=== PATIENT | male | born 1970 | race African-American/Black ===

== ENCOUNTER 2018-11-10 18:13 | Emergency (ER) | payer OTHER ==
[~2018-11-10] VITALS: Ht 190.5 cm; Wt 72.6 kg
--- OUTSIDE RECORDS SUMMARY | ~2018-11-10 | XMS | Clinical Summary ---
Demographics + + + | Address | [address] [facility] | | | [place] [address] | + + + | Home Phone | | + + + | Preferred Language | Unknown | + + + | Marital Status | Single | + + + | Uatsdin Affiliation | Unknown | + + + | Race | Unknown | + + + | Ethnic Group | Unknown | + + + Author + + + | Author | [facility] | + + + | Organization | [facility] | + + + | Address | Unknown | + + + | Phone | Unavailable | + + + Support + + +---------+ + | Name | Relationship | Address | Phone | + + +---------+ + | No,Contact | ECON | Unknown | | + + +---------+ + Care Team Providers + +------+ + | Care Cap Coverer Name | Role | Phone | + [...] tablet by | 30 | 11 | 10/21 | | Activ | | sulfamethoxazole-tri | mouth daily. | tablet | | 04/10 | | e | | methoprim (BACTRIM) [...] | 12/29/2012 | | | (#1) | 8 | | | + + [...] +------+-------+ + | MEDICAID | [place] | [id number] | | | [address] | | | N | | | | [place] | | | [place] | | | | [address] | | | RN RADIOLOGY | | | | | + +--------+ [...] | Self [birth year] | Home: | [address] [place] [address] | | | al/Fam | | 1970 | [phone] | [phone] [place] | | | [place] | | | [phone] | [phone] | + +--------+ +--------+ + + | LUCILLE GREENE | Person | Self | [birth year] | Home: | [address] | | | [place] | | 1969 | [phone] | [address] [place] | | | [place] | | | [phone] | [phone] | + +--------+ +--------+ + +
--- OUTSIDE RECORDS SUMMARY | ~2018-11-10 | XMS | Clinical Summary ---
Demographics + + + | Address | [address] [facility] | | | [place] [address] | + + + | Home Phone | | + + + | Preferred Language | Unknown | + + + | Marital Status | Single | + + + | Jain Affiliation | Unknown | + + + | Race | Unknown | + + + | Ethnic Group | Unknown | + + + Author + + + | Author | [facility] | | | and [facility] | + + + | Organization | [facility] | | | and [facility] | + + + | Address | Unknown | + + + | Phone | Unavailable | + + + Care Team Providers + +------+ + | Care Kitchen Food Server Name | Role | Phone | + +------+ + | Grecia Miranda NP | PP | | + +------+ + Allergies No Known Allergies Current Medications + + +---------+---------+------+------+-------+ | Prescription | Sig. | Disp. | Refills | Star | End | Statu | | | | | | t | Date | s | | | | | | Date | | | + + +---------+---------+------+------+-------+ | | Take 1 tablet by | | | | | Activ | | emtricitab-rilpivir- | mouth Daily. Take | | | | | e | | tenofovir (COMPLERA) | with a meal. | | | | | | | 200-25-300 mg | | | | | | | + + +---------+---------+------+------+-------+ | | Take by mouth. | | | | | Activ | | Azwkyci-Wfszcud-Kiir | | | | | | e | | icit-Tenof (STRIBILD | | | | | | | | PO) | | | | | | | + + +---------+---------+------+------+-------+ | HYDROCORTISONE PO | Take by mouth. | | | | | Activ | | | | | | | | e | + + +---------+---------+------+------+-------+ | OMEPRAZOLE PO | Take 40 mg by mouth | | | | | Activ | | | Daily. | | | | | e | + + +---------+---------+------+------+-------+ | gabapentin | Take 1 capsule by | 60 | 2 | 12/0 | | Activ | | (NEURONTIN) 300 mg | mouth 2 times daily. | capsule | | 8/20 | | e | | capsuleIndications: | | | | 14 | | | | Neuropathic pain | | | | | | | + + +---------+---------+------+------+-------+ | RANITIDINE HCL PO | Take 15 mg by mouth | | | | | Activ | | | Daily. | | | | | e | + + +---------+---------+------+------+-------+ | dicyclomine | Take 20 mg by mouth. | | | | | Activ | | (BENTYL) 20 MG | | | | | | e | | tablet | | | | | | | + + +---------+---------+------+------+-------+ | QUEtiapine | Take 150 mg by mouth | | | | | Activ | | Fumarate (SEROQUEL | 3 times daily. | | | | | e | | PO) | | | | | | | + + +---------+---------+------+------+-------+ Active Problems No known active problems Family History + + +------+ + | Medical History | Relation | Name | Comments | + + +------+ + | Diabetes | Father | | | + + +------+ + | Stroke | Father | | | + + +------+ + | Diabetes | Mother | | | + + +------+ + | Cancer | Other | | throat | + + +------+ + | Diabetes | Other | | | + + +------+ + | Hypertension | Other | | | + + +------+ + + +------+--------+ + | Relation | Name | Status | Comments | + +------+--------+ + | Father | | | | + +------+--------+ + | Mother | | | | + +------+--------+ + | Other | | | | + +------+--------+ + Social History [...] | | + + +---------+ + | Yes | 2 Cans | 1.2 | | | | of beer | | | + + +---------+ + + + + | Sex Assigned at | Date Recorded | | | | + + + | Not on file | | + + + Last Filed Vital Signs + + + + | Vital Sign | Reading | Time Taken | + + + + | Blood Pressure | 109/56 | 09/04/20141502 PST | + + + + | Pulse | 91 | 09/04/20141502 PST | + + + + | Temperature | 36.4 C (97.5 F) | 11/15/2012938 PDT | + + + + | Respiratory Rate | 16 | 09/04/20141502 PST | + + + + | Oxygen Saturation | 100% | 11/15/2012938 PDT | + + + + | Inhaled Oxygen | - | - | | Concentration | | | + + + + | Weight | 75.3 kg (166 lb) | 09/04/20141502 PST | + + + + | Height | 190.5 cm (6' 3") | 09/04/20141502 PST | + + + + | Body Mass Index | 20.75 | 09/04/20141502 PST | + + + + Plan of Treatment + + + + + | Health Maintenance | Due Date | Last Done | Comments | + + + + + | Vaccine: | | | | | Dtap/Tdap/Td (1 - | 7 | | | | Tdap) | | | | + + + + + | Vaccine: Influenza | | | | | (#1) | 8 | | | + + + + + | Vaccine: Zoster (1 | | | | | of 2) | 8 | | | + + + + + Results Not on filefrom Last 3 Months Insurance + +--------+ +--------+ +---------+ | Payer | Benefi | Subscriber | Type | Phone | Address | | | t Plan | ID | | | | | | / | | | | | | | Group | | | | | + +--------+ +--------+ +---------+ | [employer] | MODA | [id number] | Medica | [phone] | | MEDICAID HMO | HEALTH | | id | [phone] | | | | MDCD | | | | | | | [place] | | | | | + +--------+ +--------+ +---------+ + +--------+ +--------+ + + | Guarantor Name | Accoun | Relation to | Date | Phone | Billing Address | | | t Type | Patient | of | | | | | | | | | | + +--------+ +--------+ + + | STONE GREENE | Person | Self | [birth year] | Home: | [address] | | | al/Fam | | 1970 | [phone] | [place] [address] | | | [place] | | | [phone] | | + +--------+ +--------+ + +
--- OUTSIDE RECORDS SUMMARY | ~2018-11-10 | XMS | Clinical Summary ---
Demographics + + + | Address | [address] [facility] | | | [place] [address] | + + + | Home Phone | | + + + | Preferred Language | Unknown | + + + | Marital Status | Single | + + + | Holiness Affiliation | Unknown | + + + | Race | Unknown | + + + | Ethnic Group | Unknown | + + + Author + + + | Author | [facility] | | | and [facility] | + + + | Organization | [facility] | | | and [facility] | + + + | Address | Unknown | + + + | Phone | Unavailable | + + + Care Team Providers + +------+ + | Care Foreign Service Officer Name | Role | Phone | + [...] | | | | Activ | | Wogzjts-Qxzvjgc-Hych | | | | | | e [...] | [employer] | MODA | [id number] | Medica | [phone] | | | [...] | 1970 | [phone] | [place] [address] | | | [place] | | | [phone] | | + +--------+ +--------+ + +
--- OUTSIDE RECORDS SUMMARY | ~2018-11-10 | XMS | Clinical Summary ---
Demographics + + + | Address | [address] [facility] | | | [place] [address] | + + + | Home Phone | | + + + | Preferred Language | Unknown | + + + | Marital Status | Single | + + + | Congregational Affiliation | Unknown | + + + | Race | Unknown | + + + | Ethnic Group | Unknown | + + + Author + + + | Author | [facility] | + + + | Organization | [facility] | + + + | Address | Unknown | + + + | Phone | Unavailable | + + + Support + + +---------+ + | Name | Relationship | Address | Phone | + + +---------+ + | No,Contact | ECON | Unknown | | + + +---------+ + Care Team Providers + +------+ + | Care Material Cutter Name | Role | Phone | + [...] +------+-------+ + | MEDICAID | [place] | [id number] | | | [address] | | | N | | | | [place] | | | [place] | | | | [address] | | | [place] | | | | | + +--------+ [...] | Self | [birth year] | Home: | [address] [place] [address] | | | al/Fam | | 1970 | [phone] | [address] [place] | | | [place] | | | [phone] | [phone] | + +--------+ +--------+ + + | LUCILLE GREENE | Person | Self | [birth year] | Home: | [address] | | | [place] | | 1969 | [phone] | [address] [place] | | | [place] | | | [phone] | [phone] | + +--------+ +--------+ + +
[~2018-11-10 18:13] MED LIST: ASPIRIN EC81 MG PO; HYDROCODON-ACE1 EA10 PO; HYDROCORTISONE5 MG; PREDNISONE20 MG PO; STRIBILD TABLE1 EACH PO; VALACYCLOVIR500 MG PO
--- OUTSIDE RECORDS SUMMARY | 2018-11-10 18:16 | XMS ---
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 Edgar has no Care Guidelines for this patient. Lauryn VISIT COUNT (12 MO.) 1 RADHA Tejeda TOTAL 1 NOTE: Visits indicate total known visits. ED/C VISIT TRACKING (12 MO.) 11/10/2018 18:14 RADHA Fenton [place] TYPE: Emergency COMPLAINT: - L ANKLE PAIN, SWELLING/INJURY INPATIENT VISIT TRACKING (12 MO.) No inpatient visits to display in this time frame [id number]
[2018-11-10] MEDS ORDERED: NORCO 5-325 TA1 EACH PO (19:57)
[2018-11-10] MEDS ORDERED: CRUTCH1 EACH (19:57)
== END 2018-11-10 20:15 | disposition home or self-care (01) ==
LOC: ED 18:13
DX: S82.432A Displaced oblique fracture of shaft of left fibula, initial encounter for closed fracture (principal); B20 Human immunodeficiency virus [HIV] disease; F17.200 Nicotine dependence, unspecified, uncomplicated; Z79.82 Long term (current) use of aspirin; Z79.899 Other long term (current) drug therapy; Y04.0XXA Assault by unarmed brawl or fight, initial encounter
CPT/HCPCS: 73610; 99283

== ENCOUNTER 2019-09-03 11:54 | Emergency (ER) | payer OTHER ==
[~2019-09-03] VITALS: Ht 190.5 cm; Wt 77.1 kg
--- OUTSIDE RECORDS SUMMARY | ~2019-09-03 | XMS | Encounter Summary ---
Demographics + + + | Address | [address] [facility] | | | [place] [address] | + + + | Home Phone | | + + + | Preferred Language | Unknown | + + + | Marital Status | Single | + + + | Shinto Affiliation | Unknown | + + + | Race | Unknown | + + + | Ethnic Group | Unknown | + + + Author + + + | Author | [facility] | | | and [place] | + + + | Organization | [facility] | | | and [place] | + + + | Address | Unknown | + + + | Phone | Unavailable | + + + Care Team Providers + +------+ + | Care Real Estate Professor Name | Role | Phone | + +------+ + | Malick Andrews MD | PCP | | + +------+ + Reason for Referral Diagnostic/Screening (Routine) +--------+--------+ + + + + | Status | Reason | Specialty | Diagnoses / | Referred By | Referred To | | | | | Procedures | Contact | Contact | +--------+--------+ + + + + | Closed | | Radiology | Diagnoses | Pio, | [facility] | | | | | Neuropathic | Nahum Hoyt, | [address] | | | | | pain | MD Need | [place], | | | | | 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 | [place] | | | | | Procedures | address | [address] | | | | | MRI Brain | | Phone: | | | | | w wo | | [phone] | | | | | Contrast | | Fax: | | | | | | | [phone] | +--------+--------+ + + + + Reason for Visit + + + | Reason | Comments | + + + | New Patient | Hemiplegia affecting nondominant side | + + + Evaluate & Treat (Routine) +--------+--------+ + + + + | Status | Reason | Specialty | Diagnoses / | Referred By | Referred To | | | | | Procedures | Contact | Contact | +--------+--------+ + + + + | Closed | | Neurology | Diagnoses | Darryl, | [place], | | | | | Other | Malick | Nahum Hoyt MD | | | | | specified | MD Maury | Need | | | | | hemiplegia | [address] | updated | | | | | affecting | [address] | address | | | | | nondominant | [place], | | | | | | side | [place] [address] | | | | | | | Phone: | | | | | | | [phone] | | | | | | | Fax: | | | | | | | [phone] | | +--------+--------+ + + + + Encounter Details +--------+---------+ + + + | Date | Type | Department | Care Team | Description | +--------+---------+ + + + | 06/10/ | Office | [facility] | Nahum Suero | Neuropathic pain | | 2013 | Visit | [facility] | MD Evelina Need updated | (Primary Dx); Alexandrea | | | | [address], | address | palsy | | | | [address] [place] | | | | | | [place] [address] | | | | | | [phone] | | | +--------+---------+ + + + Social History + +-------+ +--------+------+ | Tobacco Use | Types | Packs/Day | Years | Date | | | | | Used | | + +-------+ +--------+------+ | Current Some Day | | | | | | Smoker | | | | | + +-------+ +--------+------+ + + +---------+ + | Alcohol Use | Drinks/Week | oz/Week | Comments | + + +---------+ + | Yes | 2 Cans of beer | 2.0 | | + + +---------+ + + + + | Sex Assigned at | Date Recorded | | | | + + + | Not on file | | + + + + + + + | Job Start Date | Occupation | Industry | + + + + | Not on file | Not on file | Not on file | + + + + + + + + | Travel History | Travel Start | Travel End | + + + + + + | No recent travel history available. | + + documented as of this encounter Last Filed Vital Signs + + + + + | Vital Sign | Reading | Time Taken | Comments | + + + + + | Blood Pressure | 115/82 | 06/10/2014 8:47 AM | | | | | PDT | | + + + + + | Pulse | 76 | 06/10/2014 8:47 AM | | | | | PDT | | + + + + + | Temperature | - | - | | + + + + + | Respiratory Rate | 16 | 06/10/2014 8:47 AM | | | | | PDT | | + + + + + | Oxygen Saturation | - | - | | + + + + + | Inhaled Oxygen | - | - | | | Concentration | | | | + + + + + | Weight | 74.4 kg (164 lb) | 06/10/2014 8:47 AM | | | | | PDT | | + + + + + | Height | 190.5 cm (6' 3") | 06/10/2014 8:47 AM | | | | | PDT | | + + + + + | Body Mass Index | 20.5 | 06/10/2014 8:47 AM | | | | | PDT | | + + + + + documented in this encounter Patient Instructions Patient Instructions Nahum Suero MD - 06/10/2014 9:32 AM PDT1) Get the copies of MRI scan 2) Start gabapentin 1 capsule at bedtime, increase to 2 capsules after 1 week. 3) Watch for sleepiness, foggy headedness on medication. 4) Try artificial tears ointment at night called Sendy. 5) Return to neurology clinic in 1 month Patient Education Gabapentin enacarbil Oral tablet, extended-release Gabapentin Oral capsule Gabapentin Oral solution Gabapentin Oral tablet Gabapentin Oral tablet, extended-release Gabapentin Oral tablet, extended-release, Gabapentin Oral tablet, extended-release Gabapentin Oral capsule What is this medicine? GABAPENTIN (GA ba pen tin) is used to control partial seizures in adults with epilepsy. It is also used to treat certain types of nerve pain. This medicine may be used for other purposes; ask your health care provider or pharmacist i f you have questions. What should I tell my health care provider before I take this medicine? They need to know if you have any of these conditions: kidney disease suicidal thoughts, plans, or attempt; a previous suicide attempt by you or a family memb er an unusual or allergic reaction to gabapentin, other medicines, foods, dyes, or preserva tives or trying to get breast-feeding How should I use this medicine? Take this medicine by mouth. Swallow it with a drink of water. Follow the directions on the prescription label. If this medicine upsets your stomach, take it with food or milk. Take y our medicine at regular intervals. Do not take it more often than directed. If you are directed to break the 600 or 800 mg tablets in half as part of your dose, the ex tra half tablet should be used for the next dose. If you have not used the extra half tablet within 3 days, it should be thrown away. A special MedGuide will be given to you by the pharmacist with each prescription and refill . Be sure to read this information carefully each time. Talk to your supervisor wet room regarding the use of this medicine in children. Special care may be needed. Overdosage: If you think you have taken too much of this medicine contact a poison control center or emergency room at once. NOTE: This medicine is only for you. Do not share this medicine with others. What if I miss a dose? If you miss a dose, take it as soon as you can. If it is almost time for your next dose, ta ke only that dose. Do not take double or extra doses. What may interact with this medicine? Do not take this medicine with any of the following medications: other gabapentin products This medicine may also interact with the following medications: alcohol antacids antihistamines for allergy, cough and cold certain medicines for anxiety or sleep certain medicines for depression or psychotic disturbances homatropine; hydrocodone naproxen narcotic medicines (opiates) for pain phenothiazines like chlorpromazine, mesoridazine, prochlorperazine, thioridazine This list may not describe all possible interactions. Give your health care provider a list of all the medicines, herbs, non-prescription drugs, or dietary supplements you use. Also t ell them if you smoke, drink alcohol, or use illegal drugs. Some items may interact with you r medicine. What should I watch for while using this medicine? Visit your doctor or health children's zoo caretaker for regular checks on your progress. You may want to keep a record at home of how you feel your condition is responding to treatment. You may want to share this information with your doctor or health children's zoo caretaker at each vis it. You should contact your doctor or health children's zoo caretaker if your seizures get worse or if you have any new types of seizures. Do not stop taking this medicine or any of your seiz ure medicines unless instructed by your doctor or health children's zoo caretaker. Stopping your me dicine suddenly can increase your seizures or their severity. Wear a medical identification bracelet or chain if you are taking this medicine for seizure s, and carry a card that lists all your medications. You may get drowsy, dizzy, or have blurred vision. Do not drive, use machinery, or do anyth ing that needs mental alertness until you know how this medicine affects you. To reduce dizz y or fainting spells, do not sit or stand up quickly, especially if you are an older patient . Alcohol can increase drowsiness and dizziness. Avoid alcoholic drinks. Your mouth may get dry. Chewing sugarless gum or sucking hard candy, and drinking plenty of water will help. The use of this medicine may increase the chance of suicidal thoughts or actions. Pay speci al attention to how you are responding while on this medicine. Any worsening of mood, or tho ughts of suicide or dying should be reported to your health children's zoo caretaker right away. Women who become while using this medicine may enroll in the [place] Antiep ileptic Drug Registry by calling . This registry collects informatio n about the safety of antiepileptic drug use during . What side effects may I notice from receiving this medicine? Side effects that you should report to your doctor or health children's zoo caretaker as soon as p ossible: allergic reactions like skin rash, itching or hives, swelling of the face, lips, or tong ue worsening of mood, thoughts or actions of suicide or dying Side effects that usually do not require medical attention (report to your doctor or health children's zoo caretaker if they continue or are bothersome): constipation difficulty walking or controlling muscle movements dizziness nausea slurred speech tiredness tremors weight gain This list may not describe all possible side effects. Call your doctor for medical advice a bout side effects. You may report side effects to FDA at 9-658-HEO-1088. Where should I keep my medicine? Keep out of reach of children. Store at room temperature between 15 and 30 degrees C (59 and 86 degrees F). Throw away any unused medicine after the expiration date. NOTE:This sheet is a summary. It may not cover all possible information. If you have questi ons about this medicine, talk to your doctor, pharmacist, or health care provider. Copyright 2014 Gold Standard documented in this encounter Progress Notes Nahum Suero MD - 06/10/2014 8:48 AM PDTFormatting of this note might be differen t from the original. Nahum Suero MD [address] [facility] [place] [address] Neurology Outpatient New Patient Note Referring Provider: Malick Andrews MD [address] [place] [address] Chief Complaint: Chief Complaint Patient presents with New Patient Hemiplegia affecting nondominant side History of Present Illness: Stone Greene is a 44 y.o. male with a pertinent history of HIV who presents with L facial droop. Mr. Greene developed L facial droop and pain on 04/29/14, and quickly worsened over the cour se of the day. He describes changes in taste, difficulty with eye closure and pain/pressure behind his ear. Mr. Greene went to the ED in [place] where he reportedly underwent a CT a nd MRI scan that were "normal". These scans are unavailable for review today. He was given 1 week of steroids and sent home. Over the past month, Mr. Greene has noticed improvements in speech (he no longer slurs his words). He continues to have difficulty closing his eye, which has led to stinging and irri tation of his cornea. He tries to patch his eye every night, but finds that it will come ope n regardless. Mr. Greene has also continued to struggle with L facial pain. He describes a burning sensation similar to "poison mannie" along V2 and V3. It is worse with touch. He has tr ied some "pain relieving ointments" that have not been helpful. Mr. Greene denies any numbness in his left arm or leg. He will occasionally get a shooting pain in his left leg that will radiate all the way into his jaw. This pain is with walking and can be so severe that his knee claudine. He has been getting this pain 1-2 times per kip h for "a while". Mr. Greene denies any other headaches, diplopia, word finding problems or clumsiness. 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 He has no recent tick bit es, and no antecedent viral infections leading up to the facial droop. He is followed closel y for his HIV and says his last CD4 count "was great". He did not develop a vesicular rash a fter his facial droop. Past Medical History: Past Medical History Diagnosis Date HIV INFECTION Abdominal hernia Past Surgical History: History reviewed. No pertinent past surgical history. Current Medications: Current Medications Qgnhgbt-Cymponq-Qnmzssfs-Tenof (STRIBILD PO) (Taking) Take by mouth. adcclxkigw-ukgjlfqb-jzmwdpzbr (COMPLERA) 200-25-300 mg Take 1 tablet by mouth Daily. Take with a meal. HYDROCORTISONE PO (Taking) Take by mouth. OMEPRAZOLE PO (Taking) Take by mouth. Allergies: No Known Allergies Social History: History Social History Marital Status: Single Spouse Name: N/A Number of Children: N/A Years of Education: N/A Occupational History Not on file. Social History Main Topics Smoking status: Current Some Day Smoker Smokeless tobacco: Not on file Alcohol Use: 1.2 oz/week 2 Cans of beer per week Drug Use: No Sexually Active: No Other Topics Concern Not on file Social History Narrative No narrative on file Family History: Family History Problem Relation Age of Onset Diabetes Mother Diabetes Father Stroke Father Diabetes Other Cancer Other throat Hypertension Other Review of Systems: GENERALLY: No fever, no night sweats, no anemia, no fatigue, no recent profound weight ch anges. EYES: No eye problems, no use of corrective lenses, no eye injury, no double vision, no bl indness. EARS, NOSE, AND THROAT: No changes in taste or smell, no hearing difficulty, no ringing in the ears, no ear drainage, no dizziness, no voice changes, no difficulty swallowing, no sig nificant snoring, no sleep apnea, no sinus problems, no major dental work. NEUROLOGICALLY: Please see the review of systems discussed above in the history of present illness. In addition, the patient has pain in the head and headaches. PSYCHIATRIC: No depression, no sleep disorders, no anxiety, no bipolar disorder, no psycho tic episodes. CARDIOVASCULAR: No heart attacks, no heart murmur, no heart fluttering, no chest pain, no ankle swelling. LUNG DISEASE: No shortness of breath, no cough, no tuberculosis, no bloody cough, no asth ma, no emphysema/COPD. GASTROINTESTINAL: No bowel disease, no nausea or vomiting, no rectal bleeding, no constipa tion, no stool incontinence, no liver disease, no gallbladder disease, no abdominal pain, no ulcers. KIDNEY DISEASE: No urinary frequency, no painful or difficult urination, no incontinence. ENDOCRINE: No diabetes, no thyroid disease, no osteopenia or osteoporosis, no breast drain age. SKIN: No breast lumps, no skin changes, no rashes, no itches. HEMATOLOGIC/LYMPHATIC: No enlarged lymph nodes, no easy or unusual bleeding, no personal h istory of cancer. RHEUMATOLOGIC: No joint arthritis, no rheumatoid arthritis. Examination: BP 115/82 | Pulse 76 | Resp 16 | Ht 1.905 m (6' 3") | Wt 74.39 kg (164 lb) | BMI 20.50 kg/m 2 Neck Circumference: 14 3/8" Henderson Sleepiness Scale: 6 General: well developed and well nourished HEENT: sclera clear, anicteric and oropharynx clear, no lesions. Cardiovascular: regular rate and rhythm, no murmurs Respiratory: clear to auscultation, no wheezes or rales and unlabored breathing Abdominal: abdomen is soft without significant tenderness, masses, organomegaly or guarding . 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 Motor: normal 5/5 strength in all tested muscle groups except 5-/5 with L knee flexion. No muscle wasting or atrophy, no fasciculations noted, no involuntary movements, no abnormaliti es of position, normal resting muscle tone and no pronator drift Sensation: normal light touch and normal vibration. Decreased pinprick in a L L4 dermatome. Decreased temp to midfoot bilaterally. Reflexes: DTR's are 2/4 in all tested locations Plantar responses downgoing Coordination/Cerebellar: rapid alternating movements intact and finger to nose intact. Gait: normal. Radiographic Review: No imaging available for review Laboratory Review: None Assessment: Stone Greene is a 44 y.o. male with a history of HIV who presents with L facial dr oop. 1) L facial droop: appears peripheral in nature, associated with changes in taste and peria uricular pain that are common with 7th nerve palsy. 5th nerve pain and sensory changes may a lso be seen in Hartley's Palsy, but are not classic. Etiology includes mononeuropathy related t o HIV, vs. Idiopathic. No recent tick exposure in a geographic location worrisome for Lyme. Local mass or lesion along the 7th nerve remains in the differential, but if MRI results are truly normal, this would provide reassurance. 2) Intermittent L leg pain: possible L4 radiculopathy given dermatomal findings. Radiculopa thy/polyradiculopathy may be seen in HIV. Plan: 1) L facial droop/pain - Will obtain MRI imaging and reports from hospital in [facility]. - Initiate gabapentin 300 mg qhs with titration to 600 mg qhs for neuropathic pain. - Discussed side effects including fogginess, sleepiness, weight gain. 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 - Patient will ask PCP about local referral to toll patrolman if stinging continues. 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 2) L leg pain: - Will hold on further work up at this time. - May consider EMG/NCS or lumbar spine MRI in the future. 3) Return to neurology clinic in 1 month I spent 60 minutes in visitation with Stone Greene today with the majority of time spent counselling the patient on his diagnosis, options for his care, and coordinating his c are. 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 COMPARISON: None. PROTOCOL: MR | LAB | | images of the head were obtained with the follow sequences: Sagittal | | | T1, axial T2, axial T2 FLAIR fat sat, axial T1, axial diffusion | | | weighted, axial susceptibility weighted, axial T1 post gadolinium, | | | sagittal T1 post gadolinium. MR images focused on the internal | | | auditory canals were obtained with the follow sequences: Axial T2, | | | axial T1, axial T1 fat sat post gadolinium, coronal T1 fat sat post | | | gadolinium. The patient was administered 10 cc Gadavist. | | | FINDINGS: Compared to the right side, there is abnormal increased | | | enhancement of the left facial nerve in the distal intracanalicular, | | | labyrinthine, geniculate ganglion, tympanic, and mastoid segments. | | | There is also abnormal enhancement of the left greater superficial | | | petrosal nerve. Linear enhancement is seen in the cisternal region of | | | the right facial nerve that appears be a blood vessel with a | | | corresponding contralateral left one more inferiorly. No abnormal mass | | | lesion is visualized within the left internal auditory canal. | | | The brain parenchyma is normal with no evidence for acute infarct, | | | mass lesion, or hemorrhage. The brainstem is unremarkable. The | | | cerebellum is normal. The ventricles, cisterns, and sulci are of | | | normal size and shape. Normal vascular flow voids are seen. | | | The orbits are normal. There is minimal mucosal thickening of the | | | ethmoid sinuses. Mastoid air cells are normal. Calvarium, | | | temporal bones, and skull base structures are unremarkable. | | | IMPRESSION - Abnormal enhancement involving left facial nerve from | | | distal intracanalicular to mastoid segments. 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 Another | | | possibility would be herpes infection. Dictated and Signed by: | | | Fer Lynch MD Electronically signed: 06/20/2014 9:17 AM | | + + + + + | Procedure Note | + + | Twan, Rad Results In - 06/20/2014 9:20 AM PDT MRI BRAIN W WO CONTRAST 06/20/2014 8:31 | | AM HISTORY: Left 7th nerve palsy, history of HIV.COMPARISON: None.PROTOCOL:MR images of | | the head were obtained with the follow sequences: Sagittal T1,axial T2, axial T2 FLAIR | | fat sat, axial T1, axial diffusion weighted, axialsusceptibility weighted, axial T1 post | | gadolinium, sagittal T1 post gadolinium. MR images focused on the internal auditory | | canals were obtained with the followsequences: Axial T2, axial T1, axial T1 fat sat post | | gadolinium, coronal T1 fatsat post gadolinium. The patient was administered 10 cc | | Gadavist.FINDINGS:Compared to the right side, there is abnormal increased enhancement of | | the leftfacial nerve in the distal intracanalicular, labyrinthine, geniculate | | ganglion,tympanic, and mastoid segments. There is also abnormal enhancement of the | | leftgreater superficial petrosal nerve. Linear enhancement is seen in the | | cisternalregion of the right facial nerve that appears be a blood vessel with | | acorresponding contralateral left one more inferiorly. No abnormal mass lesion | | isvisualized within the left internal auditory canal.The brain parenchyma is normal with | | no evidence for acute infarct, mass lesion,or hemorrhage. The brainstem is | | unremarkable. The cerebellum is normal.The ventricles, cisterns, and sulci are of normal | | size and shape.Normal vascular flow voids are seen.The orbits are normal. There is | | minimal mucosal thickening of the ethmoidsinuses. Mastoid air cells are | | normal.Calvarium, temporal bones, and skull base structures are unremarkable.IMPRESSION | | -Abnormal enhancement involving left facial nerve from distal intracanalicular tomastoid | | segments. Given the patient's history, HIV associated facial nerve palsyis a likely | | cause. Another possibility would be herpes infection.Dictated and Signed by: Fer | | MD Syed Electronically signed: 06/20/2014 9:17 AM | | | |The brain parenchyma is normal with no evidence for acute infarct, mass lesion, | |or hemorrhage. The brainstem is unremarkable. The cerebellum is normal. | | | |The ventricles, cisterns, and sulci are of normal size and shape. | | | |Normal vascular flow voids are seen. | | | |The orbits are normal. There is minimal mucosal thickening of the ethmoid | |sinuses. Mastoid air cells are normal. | | | |Calvarium, temporal bones, and skull base structures are unremarkable. | | | |IMPRESSION - | |Abnormal enhancement involving left facial nerve from distal intracanalicular to | |mastoid segments. Given the patient's history, HIV associated facial nerve palsy | |is a likely cause. Another possibility would be herpes infection. | | | |Dictated and Signed by: Fer Lynch MD | | Electronically signed: 06/20/2014 9:17 AM | + + + +---------+ + + | Performing | Address | City/State/Zipcode | Phone Number | | Organization | | | | + +---------+ + + | [facility] | | | [phone] | + +---------+ + + | [facility] | | | [phone] | + +---------+ + + documented in this encounter Visit Diagnoses + + | Diagnosis | + + | Neuropathic pain - Primary Neuralgia, neuritis, and radiculitis, unspecified | + + | Hartley's palsy | + + documented in this encounter
--- OUTSIDE RECORDS SUMMARY | ~2019-09-03 | XMS | Encounter Summary ---
Demographics + + + | Address | [address] [facility] | | | [place] [address] | + + + | Home Phone | | + + + | Preferred Language | Unknown | + + + | Marital Status | Single | + + + | Samaritan Affiliation | Unknown | + + + | Race | Unknown | + + + | Ethnic Group | Unknown | + + + Author + + + | Author | [facility] | | | and [place] | + + + | Organization | [facility] | | | and [place] | + + + | Address | Unknown | + + + | Phone | Unavailable | + + + Care Team Providers + +------+ + | Care Home Assessment Nurse Name | Role | Phone | + +------+ + | Grecia Miranda NP | PCP | | + +------+ + Encounter Details +--------+ + + + + | Date | Type | Department | Care Team | Description | +--------+ + + + + | 08/09/ | Orders Only | [facility] | Conversion | | | 2015 | | INFECTIOUS DISEASE | Transaction, | | | | | [address] [facility] | Provider Unknown | | | | | [place], [place] | [phone] | | | | | [address] | | | | | | [phone] | | | +--------+ + + + + Social History + +-------+ [...] + + documented as of this encounter Plan of Treatment Not on filedocumented as of this encounter Procedures + +--------+ + + + | Procedure Name | Priori | Date/Time | Associated Diagnosis | Comments | | | ty | | | | + +--------+ + + + | EXTERNAL LAB: CBC | Routin | 08/09/2016 | | Results for this | | | e | 12:00 AM | | procedure are in the | | | | PST | | results section. | + +--------+ + + + | CD4 T CELL PANEL | Routin | 08/09/2016 | | Results for this | | | e | 12:00 AM | | procedure are in the | | | | PST | | results section. | + +--------+ + + + | COMPREHENSIVE | Routin | 08/09/2016 | | Results for this | | METABOLIC PANEL | e | 12:00 AM | | procedure are in the | | | | PST | | results section. | + +--------+ + + + documented in this encounter Results CD4 T Cell Panel (08/09/2016 12:00 AM PST) + +---------+ + + + | Component | Value | Ref Range | Performed | Pathologist | | | | | At | Signature | + +---------+ + + + | WBC | | | EXTERNAL | | | | | | LAB | | + +---------+ + + + | Lymphocytes | | | EXTERNAL | | | Manual | | | LAB | | + +---------+ + + + | Absolute | 2230 | 850 - 3900 | EXTERNAL | | | Lymphocytes | | | LAB | | + +---------+ + + + | CD4- | 16 (A) | 30 - 61 | EXTERNAL | | | | | | LAB | | + +---------+ + + + | CD4 | 362 (A) | 490 - 1740 | EXTERNAL | | | ABSOLUTE | | | LAB | | | (REF) | | | | | + +---------+ + + + | % | | | EXTERNAL | | | Lymphocytes | | | LAB | | + +---------+ + + + + + | Specimen | + + | Blood specimen | | (specimen) | + + + +---------+ + + | Performing | Address | City/State/Zipcode | Phone Number | | Organization | | | | + +---------+ + + | EXTERNAL LAB | | | | + +---------+ + + External Lab: CBC (08/09/2016 12:00 AM PST) + +-------+ + + + | Component | Value | Ref Range | Performed | Pathologist | | | | | At | Signature | + +-------+ + + + | WBC | 5.4 | 10 | EXTERNAL | | | | | | LAB | | + +-------+ + + + | RED CELL | 4.87 | 10 | EXTERNAL | | | COUNT | | | LAB | | + +-------+ + + + | Hgb | 15.0 | g/dL | EXTERNAL | | | | | | LAB | | + +-------+ + + + | Hematocrit, | 44.8 | % | EXTERNAL | | | POC | | | LAB | | + +-------+ + + + | MCV | 92.1 | fL | EXTERNAL | | | | | | LAB | | + +-------+ + + + | MCH | 31 | pg | EXTERNAL | | | | | | LAB | | + +-------+ + + + | MCHC | 33 | g/dL | EXTERNAL | | | | | | LAB | | + +-------+ + + + | Platelet | 192 | K/ L | EXTERNAL | | | Count | | | LAB | | | Plasma | | | | | + +-------+ + + + | RDW-CV | 14.8 | % | EXTERNAL | | | | | | LAB | | + +-------+ + + + | MPV | | fL | EXTERNAL | | | | | | LAB | | + +-------+ + + + | Differentia | | | EXTERNAL | | | l Type | | | LAB | | + +-------+ + + + | % Segmented | 54.0 | % | EXTERNAL | | | | | | LAB | | | Neutrophils | | | | | + +-------+ + + + | % | 37.0 | % | EXTERNAL | | | Lymphocytes | | | LAB | | + +-------+ + + + | % Monocytes | 6.9 | % | EXTERNAL | | | | | | LAB | | + +-------+ + + + | % | 1.4 | % | EXTERNAL | | | Eosinophils | | | LAB | | + +-------+ + + + | % Basophils | 0.7 | % | EXTERNAL | | | | | | LAB | | + +-------+ + + + | Absolute | | / L | EXTERNAL | | | Segmented | | | LAB | | | Neutrophils | | | | | + +-------+ + + + | Absolute | | / L | EXTERNAL | | | Lymphocytes | | | LAB | | + +-------+ + + + | Absolute | | / L | EXTERNAL | | | Monocytes | | | LAB | | + +-------+ + + + | Absolute | | / L | EXTERNAL | | | Eosinophils | | | LAB | | + +-------+ + + + | Absolute | | / L | EXTERNAL | | | Basophils | | | LAB | | + +-------+ + + + + + | Specimen | + + | Blood specimen | | (specimen) | + + + +---------+ + + | Performing | Address | City/State/Zipcode | Phone Number | | Organization | | | | + +---------+ + + | EXTERNAL LAB | | | | + +---------+ + + Comprehensive Metabolic Panel (08/09/2016 12:00 AM PST) + +-------+ + + + | Component | Value | Ref Range | Performed | Pathologist | | | | | At | Signature | + +-------+ + + + | Glucose, | 89 | mg/dL | EXTERNAL | | | Fasting | | | LAB | | + +-------+ + + + | BUN | 17 | mg/dL | EXTERNAL | | | | | | LAB | | + +-------+ + + + | Creatinine | 0.88 | mg/dL | EXTERNAL | | | | | | LAB | | + +-------+ + + + | BUN/Creatin | 19.3 | | EXTERNAL | | | ine Ratio | | | LAB | | + +-------+ + + + | Calcium | 9.3 | mg/dL | EXTERNAL | | | | | | LAB | | + +-------+ + + + | Protein, | 7.9 | g/dL | EXTERNAL | | | Total | | | LAB | | + +-------+ + + + | Albumin | 4.4 | | EXTERNAL | | | | | | LAB | | + +-------+ + + + | Globulin | 3.5 | | EXTERNAL | | | | | | LAB | | + +-------+ + + + | A/G Ratio | 1.3 | | EXTERNAL | | | | | | LAB | | + +-------+ + + + | Bilirubin | 0.9 | mg/dL | EXTERNAL | | | Total | | | LAB | | + +-------+ + + + | ALP, | 74 | | EXTERNAL | | | External | | | LAB | | + +-------+ + + + | ALT | 16 | U/L | EXTERNAL | | | | | | LAB | | + +-------+ + + + | AST | 18 | U/L | EXTERNAL | | | | | | LAB | | + +-------+ + + + | Na | 139 | mmol/L | EXTERNAL | | | | | | LAB | | + +-------+ + + + | K | 3.6 | mmol/L | EXTERNAL | | | | | | LAB | | + +-------+ + + + | Cl | 106 | mmol/L | EXTERNAL | | | | | | LAB | | + +-------+ + + + | CO2 | 24 | mmol/L | EXTERNAL | | | | | | LAB | | + +-------+ + + + | Anion Gap | 12.6 | mmol/L | EXTERNAL | | | | | | LAB | | + +-------+ + + + | Estimated | 92 | mg/dL | EXTERNAL | | | GFR | | | LAB | | + +-------+ + + + + + | Specimen | + + | Blood specimen | | (specimen) | + + + +---------+ + + | Performing | Address | City/State/Zipcode | Phone Number | | Organization | | | | + +---------+ + + | EXTERNAL LAB | | | | + +---------+ + + documented in this encounter Visit Diagnoses Not on filedocumented in this encounter"
--- OUTSIDE RECORDS SUMMARY | ~2019-09-03 | XMS | Encounter Summary ---
Demographics + + + | Address | [address] [facility] | | | [place] [address] | + + + | Home Phone | | + + + | Preferred Language | Unknown | + + + | Marital Status | Single | + + + | Sikh Affiliation | Unknown | + + + | Race | Unknown | + + + | Ethnic Group | Unknown | + + + Author + + + | Author | [facility] | | | and [place] | + + + | Organization | [facility] | | | and [place] | + + + | Address | Unknown | + + + | Phone | Unavailable | + + + Care Team Providers + +------+ + | Care Senior Java Architect Name | Role | Phone | + +------+ + | Grecia Miranda NP | PCP | | + +------+ + Encounter Details +--------+ + + + + | Date | Type | Department | Care Team | Description | +--------+ + + + + | 03/10/ | Orders Only | [facility] | Conversion | | | 2014 | | INFECTIOUS DISEASE | Transaction, | | | | | [address] [facility] | Provider Unknown | | | | | [place], [place] | [phone] | | | | | [address] | | | | | | [phone] | | | +--------+ + + + [...] | + +--------+ + + + | CBC WITH MANUAL | Routin | 03/10/2015 | | Results for this | | DIFFERENTIAL | e | 12:00 AM | | procedure are in the | | | | PDT | | results section. | + +--------+ + + + | HIV RNA, | Routin | 03/10/2015 | | Results for this | | QUANTITATIVE, PCR | e | 12:00 AM | | procedure are in the | | | | PDT | | results section. | + +--------+ + + + | CD4 T CELL PANEL | Routin | 03/10/2015 | | Results for this | | | e | 12:00 AM | | procedure are in the | | | | PDT | | results section. | + +--------+ + + + | COMPREHENSIVE | Routin | 03/10/2015 | | Results for this | | METABOLIC PANEL | e | 12:00 AM | | procedure are in the | | | | PDT | | results section. | + +--------+ + + + documented in this encounter Results HIV RNA, quantitative, PCR (03/10/2015 12:00 AM PDT) + +-------+ + + + | Component | Value | Ref Range | Performed | Pathologist | | | | | At | Signature | + +-------+ + + + | HIV-1 Ultra | 4562 | | EXTERNAL | | | Viral Load | | | LAB | | + +-------+ + + + | HIV-1 Ultra | 3.7 | | EXTERNAL | | | Log | | | LAB | | + +-------+ + + + + + | Specimen | + + | Blood specimen | | (specimen) | + + + +---------+ + + | Performing | Address | City/State/Zipcode | Phone Number | | Organization | | | | + +---------+ + + | EXTERNAL LAB | | | | + +---------+ + + CD4 T Cell Panel (03/10/2015 12:00 AM PDT) + +-------+ + + + | Component | Value | Ref Range | Performed | Pathologist | | | | | At | Signature | + +-------+ + + + | WBC | 4.4 | | EXTERNAL | | | | | | LAB | | + +-------+ + + + | Lymphocytes | 37.0 | | EXTERNAL | | | Manual | | | LAB | | + +-------+ + + + | Absolute | 1.60 | | EXTERNAL | | | Lymphocytes | | | LAB | | + +-------+ + + + | CD4- | 27.1 | | EXTERNAL | | | | | | LAB | | + +-------+ + + + | CD4 | 434 | | EXTERNAL | | | ABSOLUTE | | | LAB | | | (REF) | | | | | + +-------+ + + + | % | 37.0 | | EXTERNAL | | | Lymphocytes [...] | | | + +---------+ + + CBC with Manual Differential (03/10/2015 12:00 AM PDT) + +-------+ + + + | Component | Value | Ref Range | Performed | Pathologist | | | | | At | Signature | + +-------+ + + + | WBC | 4.4 | 10 | EXTERNAL | | | | | | LAB | | + +-------+ + + + | RED CELL | 4.38 | 10 | EXTERNAL | | | COUNT | | | LAB | | + +-------+ + + + | Hgb | 14.0 | g/dL | EXTERNAL | | | | | | LAB | | + +-------+ + + + | Hematocrit, | 40.6 | % | EXTERNAL | | | POC | | | LAB | | + +-------+ + + + | MCV | 92.6 | fL | EXTERNAL | | | | | | LAB | | + +-------+ + + + | MCH | 31.8 | pg | EXTERNAL | | | | | | LAB | | + +-------+ + + + | MCHC | 34.4 | g/dL | EXTERNAL | | | | | | LAB | | + +-------+ + + + | RDW-CV | 13.9 | % | EXTERNAL | | | | | | LAB | | + +-------+ + + + | Platelet | 249 | K/ L | EXTERNAL | | | Count | | | LAB | | | Plasma | | | | | + +-------+ + + + | MPV | | fL | EXTERNAL | | | | | | LAB | | + +-------+ + + + | % Segmented | 54.3 | % | EXTERNAL | | | | | | LAB | | | Neutrophils | | | | | + +-------+ + + + | % | 37.0 | % | EXTERNAL | | | Lymphocytes | | | LAB | | + +-------+ + + + | % Monocytes | 6.8 | % | EXTERNAL | | | | | | LAB | | + +-------+ + + + | % | 1.3 | % | EXTERNAL | | | Eosinophils | | | LAB | | + +-------+ + + + | % Basophils | 0.6 | % | EXTERNAL | | | | | | LAB | | + +-------+ + + + | Absolute | 2.40 | / L | EXTERNAL | | | Neutrophils | | | LAB | | + +-------+ + + + | Absolute | 1.60 | / L | EXTERNAL | | | Lymphocytes | | | LAB | | + +-------+ + + + | Absolute | 0.30 | / L | EXTERNAL | | | Monocytes | | | LAB | | + +-------+ + + + | Absolute | 0.10 | / L | EXTERNAL | | | Eosinophils | | | LAB | | + +-------+ + + + | Absolute | 0.00 | / L | EXTERNAL | | [...] + +---------+ + + Comprehensive Metabolic Panel (03/10/2015 12:00 AM PDT) + +-------+ + + + | Component | Value | Ref Range | Performed | Pathologist | | | | | At | Signature | + +-------+ + + + | Glucose, | 92 | mg/dL | EXTERNAL | | | Fasting | | | LAB | | + +-------+ + + + | BUN | 10 | mg/dL | EXTERNAL | | | | | | LAB | | + +-------+ + + + | Creatinine | 0.90 | mg/dL | EXTERNAL | | | | | | LAB | | + +-------+ + + + | BUN/Creatin | 11.1 | | EXTERNAL | | | ine Ratio | | | LAB | | + +-------+ + + + | Calcium | 9.1 | mg/dL | EXTERNAL | | | | | | LAB | | + +-------+ + + + | Protein, | 7.6 | g/dL | EXTERNAL | | | Total | | | LAB | | + +-------+ + + + | Albumin | 3.3 | | EXTERNAL | | | | | | LAB | | + +-------+ + + + | Globulin | | | EXTERNAL | | | | | | LAB | | + +-------+ + + + | A/G Ratio | | | EXTERNAL | | | | | | LAB | | + +-------+ + + + | Bilirubin | 0.5 | mg/dL | EXTERNAL | | | Total | | | LAB | | + +-------+ + + + | ALP, | 91 | | EXTERNAL | | | External | | | LAB | | + +-------+ + + + | ALT | 17 | U/L | EXTERNAL | | | | | | LAB | | + +-------+ + + + | AST | 20 | U/L | EXTERNAL | | | | | | LAB | | + +-------+ + + + | Na | 143 | mmol/L | EXTERNAL | | | | | | LAB | | + +-------+ + + + | K | 3.7 | mmol/L | EXTERNAL | | | | | | LAB | | + +-------+ + + + | Cl | 112 | mmol/L | EXTERNAL | | | | | | LAB | | + +-------+ + + + | CO2 | 27 | mmol/L | EXTERNAL | | | | | | LAB | | + +-------+ + + + | Anion Gap | 4 | mmol/L | EXTERNAL | | | | | | LAB | | + +-------+ + + + | Estimated | | mg/dL | EXTERNAL | | | [...]
--- OUTSIDE RECORDS SUMMARY | ~2019-09-03 | XMS | Encounter Summary ---
Demographics + + + | Address | [address] [facility] | | | [place] [address] | + + + | Home Phone | | + + + | Preferred Language | Unknown | + + + | Marital Status | Single | + + + | Sabianist Affiliation | Unknown | + + + | Race | Unknown | + + + | Ethnic Group | Unknown | + + + Author + + + | Author | [facility] | | | and [place] | + + + | Organization | [facility] | | | and [place] | + + + | Address | Unknown | + + + | Phone | Unavailable | + + + Care Team Providers + +------+ + | Care Tool Procurement Coordinator Name | Role | Phone | + +------+ + | Grecia Miranda NP | PCP | | + +------+ + Encounter Details +--------+ + + + + | Date | Type | Department | Care Team | Description | +--------+ + + + + | 11/09/ | Orders Only | [facility] | Conversion | | | 2015 | | INFECTIOUS DISEASE | Transaction, | | | | | [address] [facility] | Provider Unknown | | | | | [place], [place] | [phone] | | | | | [address] | | | | | | [phone] | | | +--------+ + + + [...] | EXTERNAL LAB: CBC | Routin | 11/10/2015 | | Results for this | | | e | 12:00 AM | | procedure are in the | | | | PDT | | results section. | + +--------+ + + + | HIV RNA, | Routin | 11/10/2015 | | Results for this | | QUANTITATIVE, PCR | e | 12:00 AM | | procedure are in the | | | | PDT | | results section. | + +--------+ + + + | CD4 T CELL PANEL | Routin | 11/10/2015 | | Results for this | | | e | 12:00 AM | | procedure are in the | | | | PDT | | results section. | + +--------+ + + + | COMPREHENSIVE | Routin | 11/10/2015 | | Results for this | | METABOLIC PANEL | e | 12:00 AM | | procedure are in the | | | | PDT | | results section. | + +--------+ + + + documented in this encounter Results HIV RNA, quantitative, PCR (11/10/2015 12:00 AM PDT) + + + + + + | Component | Value | Ref Range | Performed | Pathologist | | | | | At | Signature | + + + + + + | HIV-1 Ultra | 70014 (A) | 0 | EXTERNAL | | | Viral Load | | | LAB | | + + + + + + | HIV-1 Ultra | 4.6 | | EXTERNAL | | | Log | | | LAB | | + + + + + + + + | Specimen | + + | Blood specimen | | (specimen) | + + + +---------+ + + | Performing | Address | City/State/Zipcode | Phone Number | | Organization | | | | + +---------+ + + | EXTERNAL LAB | | | | + +---------+ + + CD4 T Cell Panel (11/10/2015 12:00 AM PDT) + + + + + + | Component | Value | Ref Range | Performed | Pathologist | | | | | At | Signature | + + + + + + | WBC | 3.9 | 3.8 - 11.0 K/uL | EXTERNAL | | | | | | LAB | | + + + + + + | Lymphocytes | 38.3 | 15.0 - 48.0 % | EXTERNAL | | | Manual | | | LAB | | + + + + + + | Absolute | 1.50 | 1.00 - 3.90 | EXTERNAL | | | Lymphocytes | | K/uL | LAB | | + + + + + + | CD4- | 20.7 (A) | 30.0 - 65.0 % | EXTERNAL | | | | | | LAB | | + + + + + + | CD4 | 311 (A) | 490 - 1400 /uL | EXTERNAL | | | ABSOLUTE | | | LAB | | | (REF) | | | | | + + + + + + | % | | | EXTERNAL | | | Lymphocytes | | | LAB | | + + + + + + + + | Specimen | + + | Blood specimen | | (specimen) | + + + +---------+ + + | Performing | Address | City/State/Zipcode | Phone Number | | Organization | | | | + +---------+ + + | EXTERNAL LAB | | | | + +---------+ + + External Lab: CBC (11/10/2015 12:00 AM PDT) + +-------+ + + + | Component | Value | Ref Range | Performed | Pathologist | | | | | At | Signature | + +-------+ + + + | WBC | 3.9 | 10 | EXTERNAL | | | | | | LAB | | + +-------+ + + + | RED CELL | 4.54 | 10 | EXTERNAL | | | COUNT | | | LAB | | + +-------+ + + + | Hgb | 13.9 | g/dL | EXTERNAL | | | | | | LAB | | + +-------+ + + + | Hematocrit, | 42.2 | % | EXTERNAL | | | POC | | | LAB | | + +-------+ + + + | MCV | 92.9 | fL | EXTERNAL | | | | | | LAB | | + +-------+ + + + | MCH | 30.6 | pg | EXTERNAL | | | | | | LAB | | + +-------+ + + + | MCHC | 33.0 | g/dL | EXTERNAL | | | | | | LAB | | + +-------+ + + + | Platelet | 173 | K/ L | EXTERNAL | | | Count | | | LAB | | | Plasma | | | | | + +-------+ + + + | RDW-CV | 14.4 | % | EXTERNAL | | | | | | LAB | | + +-------+ + + + | MPV | | fL | EXTERNAL | | | | | | LAB | | + +-------+ + + + | Differentia | Auto | | EXTERNAL | | | l Type | | | LAB | | + +-------+ + + + | % Segmented | 49.7 | % | EXTERNAL | | | | | | LAB | | | Neutrophils | | | | | + +-------+ + + + | % | 38.3 | % | EXTERNAL | | | Lymphocytes | | | LAB | | + +-------+ + + + | % Monocytes | 9.6 | % | EXTERNAL | | | | | | LAB | | + +-------+ + + + | % | 1.9 | % | EXTERNAL | | | Eosinophils | | | LAB | | + +-------+ + + + | % Basophils | 0.5 | % | EXTERNAL | | | | | | LAB | | + +-------+ + + + | Absolute | 1.90 | / L | EXTERNAL | | | Segmented | | | LAB | | | Neutrophils | | | | | + +-------+ + + + | Absolute | 1.50 | / L | EXTERNAL | | | Lymphocytes | | | LAB | | + +-------+ + + + | Absolute | 0.40 | / L | EXTERNAL | | [...] + +---------+ + + Comprehensive Metabolic Panel (11/10/2015 12:00 AM PDT) + +---------+ + + + | Component | Value | Ref Range | Performed | Pathologist | | | | | At | Signature | + +---------+ + + + | Glucose, | 90 | mg/dL | EXTERNAL | | | Fasting | | | LAB | | + +---------+ + + + | BUN | 9 | mg/dL | EXTERNAL | | | | | | LAB | | + +---------+ + + + | Creatinine | 0.80 | mg/dL | EXTERNAL | | | | | | LAB | | + +---------+ + + + | BUN/Creatin | 11.3 | | EXTERNAL | | | ine Ratio | | | LAB | | + +---------+ + + + | Calcium | 8.9 | mg/dL | EXTERNAL | | | | | | LAB | | + +---------+ + + + | Protein, | 7.9 | g/dL | EXTERNAL | | | Total | | | LAB | | + +---------+ + + + | Albumin | 3.5 | | EXTERNAL | | | | | | LAB | | + +---------+ + + + | Globulin | | | EXTERNAL | | | | | | LAB | | + +---------+ + + + | A/G Ratio | | | EXTERNAL | | | | | | LAB | | + +---------+ + + + | Bilirubin | 0.4 | mg/dL | EXTERNAL | | | Total | | | LAB | | + +---------+ + + + | ALP, | 93 | | EXTERNAL | | | External | | | LAB | | + +---------+ + + + | ALT | 20 | U/L | EXTERNAL | | | | | | LAB | | + +---------+ + + + | AST | 26 | U/L | EXTERNAL | | | | | | LAB | | + +---------+ + + + | Na | 142 | mmol/L | EXTERNAL | | | | | | LAB | | + +---------+ + + + | K | 3.7 | mmol/L | EXTERNAL | | | | | | LAB | | + +---------+ + + + | Cl | 110 (A) | 99 - 109 mmol/L | EXTERNAL | | | | | | LAB | | + +---------+ + + + | CO2 | 26 | mmol/L | EXTERNAL | | | | | | LAB | | + +---------+ + + + | Anion Gap | 6 | mmol/L | EXTERNAL | | | | | | LAB | | + +---------+ + + + | Estimated | | [...]
--- OUTSIDE RECORDS SUMMARY | ~2019-09-03 | XMS | Encounter Summary ---
Demographics + + + | Address | [address] [facility] | | | [place] [address] | + + + | Home Phone | | + + + | Preferred Language | Unknown | + + + | Marital Status | Single | + + + | Worship Affiliation | Unknown | + + + | Race | Unknown | + + + | Ethnic Group | Unknown | + + + Author + + + | Author | [facility] | | | and [place] | + + + | Organization | [facility] | | | and [place] | + + + | Address | Unknown | + + + | Phone | Unavailable | + + + Care Team Providers + +------+ + | Care Assistant Drafter Name | Role | Phone | + +------+ + | Grecia Miranda NP | PCP | | + +------+ + Encounter Details +--------+ + + + + | Date | Type | Department | Care Team | Description | +--------+ + + + + | 09/01/ | Orders Only | [facility] | Conversion | | | 2015 | | INFECTIOUS DISEASE | Transaction, | | | | | [address] [facility] | Provider Unknown | | | | | [place], [place] | [phone] | | | | | [address] | | | | | | [phone] | | | +--------+ + + + [...] | CBC WITH MANUAL | Routin | 09/01/2015 | | Results for this | | DIFFERENTIAL | e | 12:00 AM | | procedure are in the | | | | PST | | results section. | + +--------+ + + + | HIV RNA, | Routin | 09/01/2015 | | Results for this | | QUANTITATIVE, PCR | e | 12:00 AM | | procedure are in the | | | | PST | | results section. | + +--------+ + + + | CD4 T CELL PANEL | Routin | 09/01/2015 | | Results for this | | | e | 12:00 AM | | procedure are in the | | | | PST | | results section. | + +--------+ + + + | COMPREHENSIVE | Routin | 09/01/2015 | | Results for this | | METABOLIC PANEL | e | 12:00 AM | | procedure are in the | | | | PST | | results section. | + +--------+ + + + documented in this encounter Results HIV RNA, quantitative, PCR (09/01/2015 12:00 AM PST) + +-------+ + + + | Component | Value | Ref Range | Performed | Pathologist | | | | | At | Signature | + +-------+ + + + | HIV-1 Ultra | 559 | | EXTERNAL | | | Viral Load | | | LAB | | + +-------+ + + + | HIV-1 Ultra | 2.7 | | EXTERNAL | | | Log [...] +---------+ + + CD4 T Cell Panel (09/01/2015 12:00 AM PST) + + + + + + | Component | Value | Ref Range | Performed | Pathologist | | | | | At | Signature | + + + + + + | WBC | 5.1 | | EXTERNAL | | | | | | LAB | | + + + + + + | Lymphocytes | 37.6 | | EXTERNAL | | | Manual | | | LAB | | + + + + + + | Absolute | 1.90 | | EXTERNAL | | | Lymphocytes | | | LAB | | + + + + + + | CD4- | 20.5 (A) | 30.0 - 65.0 | EXTERNAL | | | | | | LAB | | + + + + + + | CD4 | 390 (A) | 490 - 1400 | EXTERNAL | | | ABSOLUTE | [...] +---------+ + + CBC with Manual Differential (09/01/2015 12:00 AM PST) + +-------+ + + + | Component | Value | Ref Range | Performed | Pathologist | | | | | At | Signature | + +-------+ + + + | WBC | 5.1 | 10 | EXTERNAL | | | | | | LAB | | + +-------+ + + + | RED CELL | 4.71 | 10 | EXTERNAL | | | COUNT | | | LAB | | + +-------+ + + + | Hgb | 14.2 | g/dL | EXTERNAL | | | | | | LAB | | + +-------+ + + + | Hematocrit, | 43.0 | % | EXTERNAL | | | POC | | | LAB | | + +-------+ + + + | MCV | 91.4 | fL | EXTERNAL | | | | | | LAB | | + +-------+ + + + | MCH | 30.2 | pg | EXTERNAL | | | | | | LAB | | + +-------+ + + + | MCHC | 33.0 | g/dL | EXTERNAL | | | | | | LAB | | + +-------+ + + + | RDW-CV | 13.5 | % | EXTERNAL | | | | | | LAB | | + +-------+ + + + | Platelet | 191 | K/ L | EXTERNAL | | | Count | | | LAB | | | Plasma | | | | | + +-------+ + + + | MPV | | fL | EXTERNAL | | | | | | LAB | | + +-------+ + + + | % Segmented | 52.7 | % | EXTERNAL | | | | | | LAB | | | Neutrophils | | | | | + +-------+ + + + | % | 37.6 | % | EXTERNAL | | | Lymphocytes | | | LAB | | + +-------+ + + + | % Monocytes | 8.1 | % | EXTERNAL | | | | | | LAB | | + +-------+ + + + | % | 1.0 | % | EXTERNAL | | | Eosinophils | | | LAB | | + +-------+ + + + | % Basophils | 0.6 | % | EXTERNAL | | | | | | LAB | | + +-------+ + + + | Absolute | 2.70 | / L | EXTERNAL | | [...] + +---------+ + + Comprehensive Metabolic Panel (09/01/2015 12:00 AM PST) + +---------+ + + + | Component | Value | Ref Range | Performed | Pathologist | | | | | At | Signature | + +---------+ + + + | Glucose, | 84 | mg/dL | EXTERNAL | | | Fasting | | | LAB | | + +---------+ + + + | BUN | 12 | mg/dL | EXTERNAL | | | | | | LAB | | + +---------+ + + + | Creatinine | 0.90 | mg/dL | EXTERNAL | | | | | | LAB | | + +---------+ + + + | BUN/Creatin | 13.3 | | EXTERNAL | | | ine Ratio | | | LAB | | + +---------+ + + + | Calcium | 9.2 | mg/dL | EXTERNAL | | | | | | LAB | | + +---------+ + + + | Protein, | 8.1 | g/dL | EXTERNAL | | | Total | | | LAB | | + +---------+ + + + | Albumin | 3.8 | | EXTERNAL | | | | | | LAB | | + +---------+ + + + | Globulin | | | EXTERNAL | | | | | | LAB | | + +---------+ + + + | A/G Ratio | | | EXTERNAL | | | | | | LAB | | + +---------+ + + + | Bilirubin | 0.6 | mg/dL | EXTERNAL | | | Total | | | LAB | | + +---------+ + + + | ALP, | 100 | | EXTERNAL | | | External | | | LAB | | + +---------+ + + + | ALT | 23 | U/L | EXTERNAL | | | | | | LAB | | + +---------+ + + + | AST | 23 | U/L | EXTERNAL | | | | | | LAB | | + +---------+ + + + | Na | 144 | mmol/L | EXTERNAL | | | | | | LAB | | + +---------+ + + + | K | 4.2 | mmol/L | EXTERNAL | | | | | | LAB | | + +---------+ + + + | Cl | 110 (A) | 99 - 109 mmol/L | EXTERNAL | | | | | | LAB | | + +---------+ + + + | CO2 | 30 | mmol/L | EXTERNAL | | | | | | LAB | | + +---------+ + + + | Anion Gap | 4 (A) | 5 - 16 mmol/L | EXTERNAL | | | | [...]
--- OUTSIDE RECORDS SUMMARY | ~2019-09-03 | XMS | Encounter Summary ---
Demographics + + + | Address | [address] [facility] | | | [place] [address] | + + + | Home Phone | | + + + | Preferred Language | Unknown | + + + | Marital Status | Single | + + + | Yazidism Affiliation | Unknown | + + + | Race | Unknown | + + + | Ethnic Group | Unknown | + + + Author + + + | Author | [facility] | | | and [place] | + + + | Organization | [facility] | | | and [place] | + + + | Address | Unknown | + + + | Phone | Unavailable | + + + Care Team Providers + +------+ + | Care Rawhide Trimmer Name | Role | Phone | + +------+ + | Grecia Miranda NP | PCP | | + +------+ + Encounter Details +--------+ + + + + | Date | Type | Department | Care Team | Description | +--------+ + + + + | 11/05/ | Hospital | [facility] | Conversion | | | 2016 | Encounter | [facility] | Transaction, | | | | | [facility] [address] | Provider Unknown | | | | | [address] [place], [place] | [phone] | | | | | [address] | | | | | | [phone] | Ted Jacinto, | | | | | | MD [address] | | | | | | [facility] [address] | | | | | | [place] [address] | | | | | | [phone] | | | | | | | | +--------+ + + + [...] + + + | Blood Pressure | 131/80 | 11/05/2016 1:54 PM | | | | | PDT | | + + + + + | Pulse | 60 | 11/05/2016 1:54 PM | | | | | PDT | | + + + + + | Temperature | - | - | | + + + + + | Respiratory Rate | - | - | | + + + + + | Oxygen Saturation | - | - | | + + + + + | Inhaled Oxygen | - | - | | | Concentration | | | | + + + + + | Weight | 80.4 kg (177 lb 4 | 11/05/2016 1:54 PM | | | | oz) | PDT | | + + + + + | Height | 190.5 cm (6' 3") | 11/05/2016 1:54 PM | | | | | PDT | | + + + + + | Body Mass Index | 22.15 | 11/05/2016 1:54 PM | | | | | PDT | | + + + + + documented in this encounter Medications at Time of Discharge + + + +---------+ + + | Medication | Sig | Dispensed | Refills | Start | End Date | | | | | | Date | | + + + +---------+ + + | dicyclomine | Take 20 mg by mouth. | | 0 | | | | (BENTYL) 20 MG | | | | | | | tablet | | | | | | + + + +---------+ + + | | Take by mouth. | | 0 | | | | Buqtwlc-Caviuen-Uggs | | | | | | | icit-Tenof (STRIBILD | | | | | | | PO) | | | | | | + + + +---------+ + + | | Take 1 tablet by | | 0 | | | | emtricitab-rilpivir- | mouth Daily. Take | | | | | | tenofovir (COMPLERA) | with a meal. | | | | | | 200-25-300 mg | | | | | | + + + +---------+ + + | gabapentin | Take 1 capsule by | 60 | 2 | 12/08/20 | | | (NEURONTIN) 300 mg | mouth 2 times daily. | capsule | | 14 | | | capsuleIndications: | | | | | | | Neuropathic pain | | | | | | + + + +---------+ + + | HYDROCORTISONE PO | Take by mouth. | | 0 | | | + + + +---------+ + + | OMEPRAZOLE PO | Take 40 mg by mouth | | 0 | | | | | Daily. | | | | | + + + +---------+ + + | QUEtiapine | Take 150 mg by mouth | | 0 | | | | Fumarate (SEROQUEL | 3 times daily. | | | | | | PO) | | | | | | + + + +---------+ + + | RANITIDINE HCL PO | Take 15 mg by mouth | | 0 | | | | | Daily. | | | | | + + + +---------+ + + documented as of this encounter Plan of Treatment Not on filedocumented as of this encounter Visit Diagnoses Not on filedocumented in this encounter
--- OUTSIDE RECORDS SUMMARY | ~2019-09-03 | XMS | Encounter Summary ---
Demographics + + + | Address | [address] [facility] | | | [place] [address] | + + + | Home Phone | | + + + | Preferred Language | Unknown | + + + | Marital Status | Single | + + + | Confucianism Affiliation | Unknown | + + + | Race | Unknown | + + + | Ethnic Group | Unknown | + + + Author + + + | Author | [facility] | | | and [place] | + + + | Organization | [facility] | | | and [place] | + + + | Address | Unknown | + + + | Phone | Unavailable | + + + Care Team Providers + +------+ + | Care Naprapath Name | Role | Phone | + +------+ + | Grecia Miranda NP | PCP | | + +------+ + Encounter Details +--------+ + + + + | Date | Type | Department | Care Team | Description | +--------+ + + + + | 11/08/ | Hospital | [facility] | Ted Jacinto | Pharyngoesophageal | | 2017 | [facility] | [facility] | MD Madyson [address] | dysphagia | | | | INTRA [address] | [address] | | | | | [place], [place] | [place] [address] | | | | | [address] | [phone] | | | | | [phone] | | | +--------+ + + + [...] + + documented as of this encounter Medications at Time of Discharge [...] | | 0 | | | | Ccmyojb-Ovfdocu-Olep | | | | | | | [...] capsule by | 60 | 2 | 07/29/20 | | | (NEURONTIN) 300 mg | [...] + + documented as of this encounter Progress Notes Conversion Transaction, Provider Unknown - 11/08/2016 12:15 PM PDTFormatting of this note m ight be different from the original. 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 onver maggy Transaction, Provider Unknown - 11/08/2016 11:45 AM PDT Nurse Progress Note by Liliana sEcamilla RN at 11/08/16 1145 Author: Liliana Escamilla RN Service: (none) Author Type: Registered Nurse Filed: 11/08/16 1244 Date of Service: 11/08/161144 Status: Signed Manager Core: Liliana Escamilla RN (Registered Nurse) Pt arrived to have EGD but didn't have ride home. The procedure was cancelled. Pt c/o dizziness and lightheadness. Gave apple juice and crackers. BP 124/70 P 56 R16 Temp 97 O2 sat 96% Pt stated felt like fainting if stood up If stood up. Called Dr Jacinto and sent pt to ER. docume nted in this encounter Plan of Treatment Not on filedocumented as of this encounter Visit Diagnoses + + | Diagnosis | + + | Pharyngoesophageal dysphagia Dysphagia, pharyngoesophageal phase | + + documented in this encounter"
--- OUTSIDE RECORDS SUMMARY | ~2019-09-03 | XMS | Encounter Summary ---
Demographics + + + | Address | [address] [facility] | | | [place] [address] | + + + | Home Phone | | + + + | Preferred Language | Unknown | + + + | Marital Status | Single | + + + | Church Affiliation | Unknown | + + + | Race | Unknown | + + + | Ethnic Group | Unknown | + + + Author + + + | Author | [facility] | | | and [place] | + + + | Organization | [facility] | | | and [place] | + + + | Address | Unknown | + + + | Phone | Unavailable | + + + Care Team Providers + +------+ + | Care Corporate Director Talent Assessment Name | Role | Phone | + +------+ + | Grecia Miranda NP | PCP | | + +------+ + Encounter Details +--------+ + + + + | Date | Type | Department | Care Team | Description | +--------+ + + + + | 02/11/ | Orders Only | [facility] | Baljit Staples DO | | | 2016 | | [address] | [address] | | | | | [place], [place] | [place] [address] | | | | | [address] | [phone] | | | | | [phone] | | | +--------+ + + + [...] | EXTERNAL LAB: CBC | Routin | 02/12/2016 | | Results for this | | | e | 10:26 AM | | procedure are in the | | | | PDT | | results section. | + +--------+ + + + | HIV RNA, | Routin | 02/12/2016 | | Results for this | | QUANTITATIVE, PCR | e | 10:26 AM | | procedure are in the | | | | PDT | | results section. | + +--------+ + + + | CD4 T CELL PANEL | Routin | 02/12/2016 | | Results for this | | | e | 10:26 AM | | procedure are in the | | | | PDT | | results section. | + +--------+ + + + | COMPREHENSIVE | Routin | 02/12/2016 | | Results for this | | METABOLIC PANEL | e | 10:26 AM | | procedure are in the | | | | PDT | | results section. | + +--------+ + + + documented in this encounter Results HIV RNA, quantitative, PCR (02/12/2016 10:26 AM PDT) + + + + + + | Component | Value | Ref Range | Performed | Pathologist | | | | | At | Signature | + + + + + + | HIV-1 VIRAL | 2.0 (A)Comment: Testing | {Log_copies}/mL | EXTERNAL | | | RESULT | performed at [facility], [address] | | LAB | | | (REF) | [place] | | | | | | [place] [address] | | | | + + + + + + | HIV-1 VIRAL | 108 (A)Comment: Testing | | EXTERNAL | | | LOAD | performed at [facility], [address] | | LAB | | | RESULT | [place] | | | | | | [place] [address] | | | | + + + + + + | HIV-1 VIRAL | SEE BELOWComment: | | EXTERNAL | | | LOAD | REPORTABLE RANGE HIV-1 | | LAB | | | COMMENT | RNA 1.3 TO 7.0 LOG | | | | | | COPIES/ML (20 TO | | | | | | 10,000,000COPIES/ML.)THI | | | | | | S ASSAY WAS PERFORMED | | | | | | USING THE FDA APPROVED | | | | | | GILBERTO | | | | | | COBASAMPLIPREP/DONNA | | | | | | TAQMAN HIV 1 TEST.THIS | | | | | | TEST IS INTENDED FOR USE | | | | | | IN CONJUNCTION WITH | | | | | | OTHER LABORATORYMARKERS | | | | | | A PROGNOSTIC | | | | | | INDICATOR FOR PATIENTS | | | | | | WITH HIV 1 INFECTION.IT | | | | | | MAY ALSO BE USED TO AID | | | | | | IN THE ASSESSMENT OF | | | | | | VIRAL RESPONSE | | | | | | TOANTIRETROVIRAL | | | | | | TREATMENT MEASURED BY | | | | | | CHANGES IN PLASMA HIV 1 | | | | | | RNALEVELS. A THREE FOLD | | | | | | (0.5 LOG) CHANGE IN | | | | | | COPIES/MLS IS | | | | | | USUALLYCONSIDERED TO BE | | | | | | CLINICALLY | | | | | | SIGNIFICANT.IF THIS IS A | | | | | | NOTIFIABLE CONDITION IN | | | | | | YOUR STATE, THE | | | | | | PROVIDER,PLEASE ENSURE | | | | | | YOU FOLLOW ALL | | | | | | APPLICABLE LOCAL AND | | | | | | STATE | | | | | | REPORTINGREQUIREMENTS.Te | | | | | | sting performed at [facility], | | | | | | [address], | | | | | | [place] [address] | | | | + + + + + + + + | Specimen | + + | | + + + +---------+ + + | Performing | Address | City/State/Zipcode | Phone Number | | Organization | | | | + +---------+ + + | EXTERNAL LAB | | | | + +---------+ + + CD4 T Cell Panel (02/12/2016 10:26 AM PDT) + + + + + + | Component | Value | Ref Range | Performed | Pathologist | | | | | At | Signature | + + + + + + | Source | BLOODComment: Testing | | EXTERNAL | | | | performed by [facility], | | LAB | | | | [place] [address] | | | | + + + + + + | WBC | 3.8Comment: Testing | 3.8 - 11.0 | EXTERNAL | | | | performed at [facility] | 10*3/uL | LAB | | | | [facility], | | | | | | [address], [place] | | | | | | [address] | | | | + + + + + + | Lymphocytes | 38.0Comment: Testing | 15.0 - 48.0 % | EXTERNAL | | | Manual | performed at [facility] | | LAB | | | | [facility], | | | | | | [address], [place] | | | | | | [address] | | | | + + + + + + | Absolute | 1.40Comment: Testing | 1.00 - 3.90 | EXTERNAL | | | Lymphocytes | performed at [facility] | 10*3/uL | LAB | | | | [facility], | | | | | | [address], [place] | | | | | | [address] | | | | + + + + + + | CD4- | 21.1 (L)Comment: | 30.0 - 65.0 % | EXTERNAL | | | | ===NOTIFICATION | | LAB | | | | REQUIRED, REPORT SENT TO | | | | | | THE STATE | | | | | | HEALTHDEPARTMENT===Testi | | | | | | ng performed at [facility] | | | | | | [facility], | | | | | | [address], [place] | | | | | | [address] | | | | + + + + + + | CD4 | 295 (L)Comment: | 490 - 1400 /uL | EXTERNAL | | | ABSOLUTE | ===NOTIFICATION | | LAB | | | (REF) | REQUIRED, REPORT SENT TO | | | | | | THE STATE | | | | | | HEALTHDEPARTMENT===Testi | | | | | | ng performed at [facility] | | | | | | [facility], | | | | | | [address], [place] | | | | | | [address] | | | | + + + + + + | CD4 NOTE 2 | SEE BELOWComment: NORMAL | | EXTERNAL | | | | RANGES BASED ON WHOLE | | LAB | | | | BLOOD.RESULT IS A SINGLE | | | | | | TEST PARAMETER WHICH | | | | | | MAY BE INFLUENCED BY | | | | | | TRANSPORTTIMES, THERAPY, | | | | | | AND ASSOCIATED | | | | | | DISORDERS. MORE VALID | | | | | | DATA INCLUDE CD3,CD19, | | | | | | CD4, CD8, AND CD4/CD8 | | | | | | RATIO.THIS TEST WAS | | | | | | DEVELOPED AND ITS | | | | | | PERFORMANCE | | | | | | CHARACTERISTICS | | | | | | DETERMINEDBY [facility] | | | | | | [facility] | | | | | | [place]. IT HAS NOT BEEN | | | | | | CLEARED ORAPPROVED BY | | | | | | THE [place]. FOOD AND DRUG | | | | | | ADMINISTRATION. THE FDA | | | | | | HASDETERMINED THAT SUCH | | | | | | CLEARANCE OR APPROVAL IS | | | | | | NOT NECESSARY.THIS TEST | | | | | | IS USED FOR CLINICAL | | | | | | PURPOSES IN MANY | | | | | | LABORATORIES, AND | | | | | | ISNECESSARY FOR STANDARD | | | | | | MEDICAL CARE. IT SHOULD | | | | | | NOT BE REGARDED | | | | | | ASINVESTIGATIONAL OR FOR | | | | | | RESEARCH. THIS | | | | | | LABORATORY IS CERTIFIED | | | | | | UNDERTHE CLINICAL | | | | | | LABORATORY IMPROVEMENT | | | | | | AMENDMENTS OF 1987 | | | | | | ("CLIA") ASQUALIFIED TO | | | | | | PERFORM HIGH COMPLEXITY | | | | | | CLINICAL TESTING.Testing | | | | | | performed at [facility] | | | | | | [facility], | | | | | | [address], [place] | | | | | | [address] | | | | + + + [...] + +---------+ + + External Lab: CBC (02/12/2016 10:26 AM PDT) + + + + + + | Component | Value | Ref Range | Performed | Pathologist | | | | | At | Signature | + + + + + + | WBC | 3.63 (L) | 3.80 - 11.00 | EXTERNAL | | | | | 10*3/uL | LAB | | + + + + + + | RED CELL | 4.67 | 4.20 - 5.70 | EXTERNAL | | | COUNT | | 10*6/uL | LAB | | + + + + + + | Hgb | 14.5 | 13.2 - 17.0 | EXTERNAL | | | | | g/dL | LAB | | + + + + + + | Hematocrit, | 42.9 | 39.0 - 50.0 % | EXTERNAL | | | POC | | | LAB | | + + + + + + | MCV | 91.9 | 80.0 - 100.0 fL | EXTERNAL | | | | | | LAB | | + + + + + + | MCH | 31.1 | 27.0 - 34.0 pg | EXTERNAL | | | | | | LAB | | + + + + + + | MCHC | 33.8 | 32.0 - 35.5 | EXTERNAL | | | | | g/dL | LAB | | + + + + + + | RDW-CV | 47.3 | 37 - 53 fL | EXTERNAL | | | | | | LAB | | + + + + + + | Platelet | 180 | 150 - 400 | EXTERNAL | | | Count | | 10*3/uL | LAB | | | Plasma | | | | | + + + + + + | MPV | 9.5 | fL | EXTERNAL | | | | | | LAB | | + + + + + + | Differentia | AUTOMATED | | EXTERNAL | | | l Type | | | LAB | | + + + + + + | % Segmented | 48.03 | % | EXTERNAL | | | | | | LAB | | | Neutrophils | | | | | + + + + + + | % | 40.33 | % | EXTERNAL | | | Lymphocytes | | | LAB | | + + + + + + | % Monocytes | 8.94 | % | EXTERNAL | | | | | | LAB | | + + + + + + | % | 2.35 | % | EXTERNAL | | | Eosinophils | | | LAB | | + + + + + + | % Basophils | 0.35 | % | EXTERNAL | | | | | | LAB | | + + + + + + | Absolute | 1.74 (L) | 1.90 - 7.40 | EXTERNAL | | | Segmented | | 10*3/uL | LAB | | | Neutrophils | | | | | + + + + + + | Absolute | 1.46 | 1.00 - 3.90 | EXTERNAL | | | Lymphocytes | | 10*3/uL | LAB | | + + + + + + | Absolute | 0.32 | 0.00 - 0.80 | EXTERNAL | | | Monocytes | | 10*3/uL | LAB | | + + + + + + | Absolute | 0.09 | 0.00 - 0.50 | EXTERNAL | | | Eosinophils | | 10*3/uL | LAB | | + + + + + + | Absolute | 0.01Comment: Testing | 0.00 - 0.10 | EXTERNAL | | | Basophils | performed at [facility];[address] | 10*3/uL | LAB | | | | [address] | | | | [address];[place] [address] | | | | + + + [...] + +---------+ + + Comprehensive Metabolic Panel (02/12/2016 10:26 AM PDT) + + + + + + | Component | Value | Ref Range | Performed | Pathologist | | | | | At | Signature | + + + + + + | Na | 141Comment: NOTE NEW | 135 - 145 | EXTERNAL | | | | REFERENCE RANGE | mmol/L | LAB | | + + + + + + | K | 4.0 | 3.5 - 4.9 | EXTERNAL | | | | | mmol/L | LAB | | + + + + + + | Cl | 110 (H) | 99 - 109 mmol/L | EXTERNAL | | | | | | LAB | | + + + + + + | CO2 | 23 | 23 - 32 mmol/L | EXTERNAL | | | | | | LAB | | + + + + + + | Anion Gap | 12 | 5 - 20 mmol/L | EXTERNAL | | | | | | LAB | | + + + + + + | Glucose, | 80 | 65 - 99 mg/dL | EXTERNAL | | | Fasting | | | LAB | | + + + + + + | BUN | 16 | 8 - 25 mg/dL | EXTERNAL | | | | | | LAB | | + + + + + + | Creatinine | 0.9 | 0.70 - 1.30 | EXTERNAL | | | | | mg/dL | LAB | | + + + + + + | BUN/Creatin | 18 | | EXTERNAL | | | ine Ratio | | | LAB | | + + + + + + | Calcium | 8.8 | 8.5 - 10.5 | EXTERNAL | | | | | mg/dL | LAB | | + + + + + + | Protein, | 7.9 | 6.3 - 8.2 g/dL | EXTERNAL | | | Total | | | LAB | | + + + + + + | Albumin | 3.9 | 3.6 - 5.0 g/dL | EXTERNAL | | | | | | LAB | | + + + + + + | Globulin | 4.0 | 1.3 - 4.9 g/dL | EXTERNAL | | | | | | LAB | | + + + + + + | A/G Ratio | 1.0 | 1.0 - 2.4 | EXTERNAL | | | | | | LAB | | + + + + + + | Bilirubin | 0.6 | 0.1 - 1.5 mg/dL | EXTERNAL | | | Total | | | LAB | | + + + + + + | ALP, | 88 | 35 - 115 U/L | EXTERNAL | | | External | | | LAB | | + + + + + + | AST | 13 | 10 - 45 U/L | EXTERNAL | | | | | | LAB | | + + + + + + | ALT | 18 | 10 - 65 U/L | EXTERNAL | | | | | | LAB | | + + + + + + | Estimated | >60Comment: GFR <60: | mL/min/{1.73_m2 | EXTERNAL | | | GFR | CHRONIC KIDNEY DISEASE, | } | LAB | | | | IF FOUND OVER A 3 MONTH | | | | | | PERIOD. GFR <15: KIDNEY | | | | | | FAILURE. FOR | | | | | | AMERICANS, MULTIPLY THE | | | | | | CALCULATED GFR BY | | | | | | 1.210.Testing performed | | | | | | at [facility];[address] | | | | | | [facility];[place] | | | | | | [id number] | | | | + + + [...]
--- OUTSIDE RECORDS SUMMARY | ~2019-09-03 | XMS | Encounter Summary ---
Demographics + + + | Address | [address] [facility] | | | [place] [address] | + + + | Home Phone | | + + + | Preferred Language | Unknown | + + + | Marital Status | Single | + + + | Christian Affiliation | Unknown | + + + | Race | Unknown | + + + | Ethnic Group | Unknown | + + + Author + + + | Author | [facility] | | | and [place] | + + + | Organization | [facility] | | | and [place] | + + + | Address | Unknown | + + + | Phone | Unavailable | + + + Care Team Providers + +------+ + | Care Commercial Baking Teacher Name | Role | Phone | + +------+ + | Ruben Shin MD | PCP | | + +------+ + Reason for Visit + + + | Reason | Comments | + + + | Appointment | Surgery | + + + Encounter Details +--------+ + + + + | Date | Type | Department | Care Team | Description | +--------+ + + + + | 07/24/ | Telephone | [facility] | Escobar Muir, | Appointment | | 2011 | | SURGERY [address] | [address], | (Surgery) | | | | [facility] [place] | [facility] [[email or web address]] [address], | | | | | [address] | [place] [address] | | | | | [phone] | [phone] | | | | | | | | +--------+ + + + + Social History + +-------+ +--------+------+ | Tobacco Use | Types | Packs/Day | Years | Date | | | | | Used | | + +-------+ +--------+------+ | Never Assessed | | | | | + +-------+ +--------+------+ + + + | Sex Assigned at [...]
--- OUTSIDE RECORDS SUMMARY | ~2019-09-03 | XMS | Encounter Summary ---
Demographics + + + | Address | [address] [facility] | | | [place] [address] | + + + | Home Phone | | + + + | Preferred Language | Unknown | + + + | Marital Status | Single | + + + | Anabaptist Affiliation | Unknown | + + + | Race | Unknown | + + + | Ethnic Group | Unknown | + + + Author + + + | Author | [facility] | | | and [place] | + + + | Organization | [facility] | | | and [place] | + + + | Address | Unknown | + + + | Phone | Unavailable | + + + Care Team Providers + +------+ + | Care Apparel Designer Name | Role | Phone | + +------+ + | Ruben Shin MD | PCP | | + +------+ + Encounter Details +--------+ + + + + | Date | Type | Department | Care Team | Description | +--------+ + + + + | 10/11/ | Hospital | [facility] | Escobar Muir, | | | 2012 | Encounter | [facility] | MD [address], | | | | | [address] | [address], | | | | | [place], [place] | [place] [address] | | | | | [address] | [phone] | | | | | [phone] | | | +--------+ + + + [...] at Time of Discharge + + + +---------+--------+ + | Medication | Sig | Dispensed | Refills | Start | End Date | | | | | | Date | | + + + +---------+--------+ + | | Take 1 tablet by | | 0 | | | | emtricitab-rilpivir- | mouth Daily. Take | | | | | | tenofovir (COMPLERA) | with a meal. | | | | | | 200-25-300 mg | | | | | | + + + +---------+--------+ + documented as of this encounter Plan of Treatment Not on filedocumented as of this encounter Visit Diagnoses Not on filedocumented in this encounter"
--- OUTSIDE RECORDS SUMMARY | ~2019-09-03 | XMS | Encounter Summary ---
Demographics + + + | Address | [address] [facility] | | | [place] [address] | + + + | Home Phone | | + + + | Preferred Language | Unknown | + + + | Marital Status | Single | + + + | Adventist Affiliation | Unknown | + + + [...] Team Providers + +------+ + | Care Pantograph Machine Operator Name | Role | Phone | + +------+ + | Grecia Miranda NP | PCP | | + +------+ + Encounter Details +--------+ + + + + | Date | Type | Department | Care Team | Description | +--------+ + + + + | 01/28/ | Orders Only | [facility] | Conversion | | | 2013 | | INFECTIOUS DISEASE | Transaction, | | | | | [address] [facility] | Provider Unknown | | | | | [place], [place] | [phone] | | | | | [address] | | | | | | [phone] | | | +--------+ + + + [...] + | HIV RNA, | Routin | 01/28/2014 | | Results for this | | QUANTITATIVE, PCR | e | 12:00 AM | | procedure are in the | | | | PDT | | results section. | + +--------+ + + + | CD4 T CELL PANEL | Routin | 01/28/2014 | | Results for this | | | e | 12:00 AM | | procedure are in the | | | | PDT | | results section. | + +--------+ + + + documented in this encounter Results HIV RNA, quantitative, PCR (01/28/2014 12:00 AM PDT) + +-------+ + + + | Component | Value | Ref Range | Performed | Pathologist | | | | | At | Signature | + +-------+ + + + | HIV-1 Ultra | [id number] | | EXTERNAL | | | Viral Load | | | LAB | | + +-------+ + + + | HIV-1 Ultra | 4.06 | | EXTERNAL | | | Log [...] +---------+ + + CD4 T Cell Panel (01/28/2014 12:00 AM PDT) + +--------+ + + + | Component | Value | Ref Range | Performed | Pathologist | | | | | At | Signature | + +--------+ + + + | WBC | | | EXTERNAL | | | | | | LAB | | + +--------+ + + + | Lymphocytes | | | EXTERNAL | | | Manual | | | LAB | | + +--------+ + + + | Absolute | 1966 | 850 - 3900 | EXTERNAL | | | Lymphocytes | | | LAB | | + +--------+ + + + | CD4- | 28 (A) | 30 - 61 | EXTERNAL | | | | | | LAB | | + +--------+ + + + | CD4 | 552 | 490 - 1740 | EXTERNAL | | | ABSOLUTE | | | LAB | | | (REF) | | | | | + +--------+ + + + | % | | | EXTERNAL | | | Lymphocytes | | | LAB | | + +--------+ + + + + + | Specimen [...]
--- OUTSIDE RECORDS SUMMARY | ~2019-09-03 | XMS | Encounter Summary ---
Demographics + + + | Address | [address] [facility] | | | [place] [address] | + + + | Home Phone | | + + + | Preferred Language | Unknown | + + + | Marital Status | Single | + + + | Gnosticist Affiliation | Unknown | + + + | Race | Unknown | + + + | Ethnic Group | Unknown | + + + Author + + + | Author | [facility] | | | and [place] | + + + | Organization | [facility] | | | and [place] | + + + | Address | Unknown | + + + | Phone | Unavailable | + + + Care Team Providers + +------+ + | Care Oilseed Meat Presser Name | Role | Phone | + +------+ + | Grecia Miranda NP | PCP | | + +------+ + Encounter Details +--------+ + + + + | Date | Type | Department | Care Team | Description | +--------+ + + + + | 05/14/ | Orders Only | [facility] | Conversion | | | 2015 | | INFECTIOUS DISEASE | Transaction, | | | | | [address] [facility] | Provider Unknown | | | | | [place], [place] | [phone] | | | | | [address] | | | | | | [phone] | | | +--------+ + + + [...] | EXTERNAL LAB: CBC | Routin | 05/14/2016 | | Results for this | | | e | 12:00 AM | | procedure are in the | | | | PDT | | results section. | + +--------+ + + + | HIV RNA, | Routin | 05/14/2016 | | Results for this | | QUANTITATIVE, PCR | e | 12:00 AM | | procedure are in the | | | | PDT | | results section. | + +--------+ + + + | CD4 T CELL PANEL | Routin | 05/14/2016 | | Results for this | | | e | 12:00 AM | | procedure are in the | | | | PDT | | results section. | + +--------+ + + + | COMPREHENSIVE | Routin | 05/14/2016 | | Results for this | | METABOLIC PANEL | e | 12:00 AM | | procedure are in the | | | | PDT | | results section. | + +--------+ + + + documented in this encounter Results HIV RNA, quantitative, PCR (05/14/2016 12:00 AM PDT) + +-------+ + + + | Component | Value | Ref Range | Performed | Pathologist | | | | | At | Signature | + +-------+ + + + | HIV-1 Ultra | [id number] | Copies/mL | EXTERNAL | | | Viral Load | | | LAB | | + +-------+ + + + | HIV-1 Ultra | 4.30 | Log Copies/mL | EXTERNAL | | | Log | [...] +---------+ + + CD4 T Cell Panel (05/14/2016 12:00 AM PDT) + +---------+ + + [...] +---------+ + + + | Absolute | 1889 | 850 - 3900 #/uL | EXTERNAL | | | Lymphocytes | | | LAB | | + +---------+ + + + | CD4- | 19 (A) | 30 - 61 % | EXTERNAL | | | | | | LAB | | + +---------+ + + + | CD4 | 362 (A) | 490 - 1740 | EXTERNAL | | | ABSOLUTE | | cells/uL | LAB | | | (REF) | [...] + +---------+ + + External Lab: CBC (05/14/2016 12:00 AM PDT) + + + + + + | Component | Value | Ref Range | Performed | Pathologist | | | | | At | Signature | + + + + + + | WBC | 4.4 (A) | 4.5 - 11.0 K/uL | EXTERNAL | | | | | | LAB | | + + + + + + | RED CELL | 4.54 | 4.3 - 5.7 M/uL | EXTERNAL | | | COUNT | | | LAB | | + + + + + + | Hgb | 13.9 | 13.5 - 18.0 | EXTERNAL | | | | | g/dL | LAB | | + + + + + + | Hematocrit, | 41.0 | 41 - 50 % | EXTERNAL | | | POC | | | LAB | | + + + + + + | MCV | 90.4 | 81 - 99 fL | EXTERNAL | | | | | | LAB | | + + + + + + | MCH | 31 | 27 - 33 pg | EXTERNAL | | | | | | LAB | | + + + + + + | MCHC | 34 | 30 - 36 g/dL | EXTERNAL | | | | | | LAB | | + + + + + + | Platelet | 182 | 140 - 440 K/uL | EXTERNAL | | | Count | | | LAB | | | Plasma | | | | | + + + + + + | RDW-CV | 15.1 (A) | 10.5 - 15.0 % | EXTERNAL | | | | | | LAB | | + + + + + + | MPV | | | EXTERNAL | | | | | | LAB | | + + + + + + | Differentia | | | EXTERNAL | | | l Type | | | LAB | | + + + + + + | % Segmented | 44.2 | 39 - 80 % | EXTERNAL | | | | | | LAB | | | Neutrophils | | | | | + + + + + + | % | 43.7 | 24 - 44 % | EXTERNAL | | | Lymphocytes | | | LAB | | + + + + + + | % Monocytes | 11.1 | 0 - 12 % | EXTERNAL | | | | | | LAB | | + + + + + + | % | 0.8 | 0 - 6 % | EXTERNAL | | | Eosinophils | | | LAB | | + + + + + + | % Basophils | 0.2 | 0 - 2 % | EXTERNAL | | | | | | LAB | | + + + + + + | Absolute | | | EXTERNAL | | | Segmented | | | LAB | | | Neutrophils | | | | | + + + + + + | Absolute | | | EXTERNAL | | | Lymphocytes | | | LAB | | + + + + + + | Absolute | | | EXTERNAL | | | Monocytes | | | LAB | | + + + + + + | Absolute | | | EXTERNAL | | | Eosinophils | | | LAB | | + + + + + + | Absolute | | | EXTERNAL | | | Basophils | [...] + +---------+ + + Comprehensive Metabolic Panel (05/14/2016 12:00 AM PDT) + + + + + + | Component | Value | Ref Range | Performed | Pathologist | | | | | At | Signature | + + + + + + | Glucose, | 88 | 70 - 100 mg/dL | EXTERNAL | | | Fasting | | | LAB | | + + + + + + | BUN | 7 | 6 - 23 mg/dL | EXTERNAL | | | | | | LAB | | + + + + + + | Creatinine | 1.02 | 0.60 - 1.35 | EXTERNAL | | | | | mg/dL | LAB | | + + + + + + | BUN/Creatin | 6.9 | 6.0 - 28.6 | EXTERNAL | | | ine Ratio | | | LAB | | + + + + + + | Calcium | 9.0 | 8.4 - 10.2 | EXTERNAL | | | | | mg/dL | LAB | | + + + + + + | Protein, | 7.7 | 6.0 - 8.0 g/dL | EXTERNAL | | | Total | | | LAB | | + + + + + + | Albumin | 4.6 | 3.5 - 5.0 g/dL | EXTERNAL | | | | | | LAB | | + + + + + + | Globulin | 3.1 | 1.8 - 3.5 g/dL | EXTERNAL | | | | | | LAB | | + + + + + + | A/G Ratio | 1.5 | 1.1 - 2.4 | EXTERNAL | | | | | | LAB | | + + + + + + | Bilirubin | 1.4 (A) | 0.0 - 1.2 mg/dL | EXTERNAL | | | Total | | | LAB | | + + + + + + | ALP, | 77 | 30 - 128 U/L | EXTERNAL | | | External | | | LAB | | + + + + + + | ALT | 20 | 7 - 52 U/L | EXTERNAL | | | | | | LAB | | + + + + + + | AST | 22 | 13 - 39 U/L | EXTERNAL | | | | | | LAB | | + + + + + + | Na | 140 | 132 - 143 meq/L | EXTERNAL | | | | | | LAB | | + + + + + + | K | 3.6 | 3.6 - 5.1 meq/L | EXTERNAL | | | | | | LAB | | + + + + + + | Cl | 107 | 95 - 112 meq/L | EXTERNAL | | | | | | LAB | | + + + + + + | CO2 | 24 | 19 - 31 meq/L | EXTERNAL | | | | | | LAB | | + + + + + + | Anion Gap | 12.6 | 7 - 21 | EXTERNAL | | | | | | LAB | | + + + + + + | Estimated | 78Comment: Reference | 60 mL/min | EXTERNAL | | | GFR | Range: >60 | | LAB | | + + [...]
--- OUTSIDE RECORDS SUMMARY | ~2019-09-03 | XMS | Encounter Summary ---
Demographics + + + | Address | [address] [facility] | | | [place] [address] | + + + | Home Phone | | + + + | Preferred Language | Unknown | + + + | Marital Status | Single | + + + | Sikh Affiliation | Unknown | + + + | Race | Unknown | + + + | Ethnic Group | Unknown | + + + Author + + + | Author | [facility] | | | and [place] | + + + | Organization | [facility] | | | and [place] | + + + | Address | Unknown | + + + | Phone | Unavailable | + + + Care Team Providers + +------+ + | Care Merchandise Pickup/Receiving Associate Name | Role | Phone | + +------+ + | Grecia Miranda NP | PCP | | + +------+ + Encounter Details +--------+ + + + + | Date | Type | Department | Care Team | Description | +--------+ + + + + | 11/09/ | Orders Only | [facility] | Conversion | | | 2015 | | INFECTIOUS DISEASE | Transaction, | | | | | [address] [facility] | Provider Unknown | | | | | [place], [place] | [phone] | | | | | [address] | | | | | | [phone] | | | +--------+ + + + [...] + + + | HIV-1 Ultra | 64587 (A) | 0 | EXTERNAL | | [...]
--- OUTSIDE RECORDS SUMMARY | ~2019-09-03 | XMS | Encounter Summary ---
Demographics + + + | Address | [address] [facility] | | | [place] [address] | + + + | Home Phone | | + + + | Preferred Language | Unknown | + + + | Marital Status | Single | + + + | Temple Affiliation | Unknown | + + + | Race | Unknown | + + + | Ethnic Group | Unknown | + + + Author + + + | Author | [facility] | | | and [place] | + + + | Organization | [facility] | | | and [place] | + + + | Address | Unknown | + + + | Phone | Unavailable | + + + Care Team Providers + +------+ + | Care Director Of Physical Education Name | Role | Phone | + +------+ + | Grecia Miranda NP | PCP | | + +------+ + Encounter Details +--------+ + + + + | Date | Type | Department | Care Team | Description | +--------+ + + + + | 06/24/ | Orders Only | [facility] | Conversion | | | 2015 | | INFECTIOUS DISEASE | Transaction, | | | | | [address] [facility] | Provider Unknown | | | | | [place], [place] | [phone] | | | | | [address] | | | | | | [phone] | | | +--------+ + + + [...] | EXTERNAL LAB: CBC | Routin | 06/24/2016 | | Results for this | | | e | 12:00 AM | | procedure are in the | | | | PDT | | results section. | + +--------+ + + + | HIV RNA, | Routin | 06/24/2016 | | Results for this | | QUANTITATIVE, PCR | e | 12:00 AM | | procedure are in the | | | | PDT | | results section. | + +--------+ + + + | CD4 T CELL PANEL | Routin | 06/24/2016 | | Results for this | | | e | 12:00 AM | | procedure are in the | | | | PDT | | results section. | + +--------+ + + + | COMPREHENSIVE | Routin | 06/24/2016 | | Results for this | | METABOLIC PANEL | e | 12:00 AM | | procedure are in the | | | | PDT | | results section. | + +--------+ + + + documented in this encounter Results HIV RNA, quantitative, PCR (06/24/2016 12:00 AM PDT) + + + + + + | Component | Value | Ref Range | Performed | Pathologist | | | | | At | Signature | + + + + + + | HIV-1 Ultra | 4250 (A) | 0 | EXTERNAL | | | Viral Load | | | LAB | | + + + + + + | HIV-1 Ultra | 3.63 (A) | 0 | EXTERNAL | | | Log | [...] +---------+ + + CD4 T Cell Panel (06/24/2016 12:00 AM PDT) + +---------+ + + [...] +---------+ + + + | Absolute | 2084 | 850 - 3900 | EXTERNAL | | | Lymphocytes | | | LAB | | + +---------+ + + + | CD4- | 16 (A) | 30 - 61 | EXTERNAL | | | | | | LAB | | + +---------+ + + + | CD4 | 334 (A) | 490 - 1740 | EXTERNAL [...] + +---------+ + + External Lab: CBC (06/24/2016 12:00 AM PDT) + +---------+ + + + | Component | Value | Ref Range | Performed | Pathologist | | | | | At | Signature | + +---------+ + + + | WBC | 4.1 (A) | 4.5 - 11.0 10 | EXTERNAL | | | | | | LAB | | + +---------+ + + + | RED CELL | 4.63 | 10 | EXTERNAL | | | COUNT | | | LAB | | + +---------+ + + + | Hgb | 13.6 | g/dL | EXTERNAL | | | | | | LAB | | + +---------+ + + + | Hematocrit, | 41.2 | % | EXTERNAL | | | POC | | | LAB | | + +---------+ + + + | MCV | 88.8 | fL | EXTERNAL | | | | | | LAB | | + +---------+ + + + | MCH | 29 | pg | EXTERNAL | | | | | | LAB | | + +---------+ + + + | MCHC | 33 | g/dL | EXTERNAL | | | | | | LAB | | + +---------+ + + + | Platelet | 187 | K/ L | EXTERNAL | | | Count | | | LAB | | | Plasma | | | | | + +---------+ + + + | RDW-CV | 13.1 | % | EXTERNAL | | | | | | LAB | | + +---------+ + + + | MPV | | fL | EXTERNAL | | | | | | LAB | | + +---------+ + + + | Differentia | | | EXTERNAL | | | l Type | | | LAB | | + +---------+ + + + | % Segmented | 33 (A) | 39 - 80 % | EXTERNAL | | | | | | LAB | | | Neutrophils | | | | | + +---------+ + + + | % | 51 (A) | 24 - 44 % | EXTERNAL | | | Lymphocytes | | | LAB | | + +---------+ + + + | % Monocytes | 12 | % | EXTERNAL | | | | | | LAB | | + +---------+ + + + | % | 1 | % | EXTERNAL | | | Eosinophils | | | LAB | | + +---------+ + + + | % Basophils | 3 (A) | 0 - 2 % | EXTERNAL | | | | | | LAB | | + +---------+ + + + | Absolute | | / L | EXTERNAL | | | Segmented | | | LAB | | | Neutrophils | | | | | + +---------+ + + + | Absolute | | / L | EXTERNAL | | | Lymphocytes | | | LAB | | + +---------+ + + + | Absolute | | / L | EXTERNAL | | | Monocytes | | | LAB | | + +---------+ + + + | Absolute | | / L | EXTERNAL | | | Eosinophils | | | LAB | | + +---------+ + + + | Absolute | | [...] + +---------+ + + Comprehensive Metabolic Panel (06/24/2016 12:00 AM PDT) + +---------+ + + + | Component | Value | Ref Range | Performed | Pathologist | | | | | At | Signature | + +---------+ + + + | Glucose, | 94 | mg/dL | EXTERNAL | | | Fasting | | | LAB | | + +---------+ + + + | BUN | 13 | mg/dL | EXTERNAL | | | | | | LAB | | + +---------+ + + + | Creatinine | 0.94 | mg/dL | EXTERNAL | | | | | | LAB | | + +---------+ + + + | BUN/Creatin | 13.8 | | EXTERNAL | | | ine Ratio | | | LAB | | + +---------+ + + + | Calcium | 9.1 | mg/dL | EXTERNAL | | | | | | LAB | | + +---------+ + + + | Protein, | 8.0 | g/dL | EXTERNAL | | | Total | | | LAB | | + +---------+ + + + | Albumin | 4.3 | | EXTERNAL | | | | | | LAB | | + +---------+ + + + | Globulin | 3.7 (A) | 1.8 - 3.5 | EXTERNAL | | | | | | LAB | | + +---------+ + + + | A/G Ratio | 1.2 | | EXTERNAL | | | | | | LAB | | + +---------+ + + + | Bilirubin | 0.7 | mg/dL | EXTERNAL | | | Total | | | LAB | | + +---------+ + + + | ALP, | 69 | | EXTERNAL | | | External | | | LAB | | + +---------+ + + + | ALT | 12 | U/L | EXTERNAL | | | | | | LAB | | + +---------+ + + + | AST | 17 | U/L | EXTERNAL | | | | | | LAB | | + +---------+ + + + | Na | 141 | mmol/L | EXTERNAL | | | | | | LAB | | + +---------+ + + + | K | 3.7 | mmol/L | EXTERNAL | | | | | | LAB | | + +---------+ + + + | Cl | 107 | mmol/L | EXTERNAL | | | | | | LAB | | + +---------+ + + + | CO2 | 22 | mmol/L | EXTERNAL | | | | | | LAB | | + +---------+ + + + | Anion Gap | 15.7 | mmol/L | EXTERNAL | | | | | | LAB | | + +---------+ + + + | Estimated | 86 | mg/dL | EXTERNAL | | | [...]
--- OUTSIDE RECORDS SUMMARY | ~2019-09-03 | XMS | Encounter Summary ---
Demographics + + + | Address | [address] [facility] | | | [place] [address] | + + + | Home Phone [...] + + | Author | [facility] | | | and [place] | + + + | Organization | [facility] | | | and [place] | + + + | Address | Unknown | + + + | Phone | Unavailable | + + + Care Team Providers + +------+ + | Care Merchandise Buyer Name | Role | Phone | + +------+ + | Grecia Miranda NP | PCP | | + +------+ + Encounter Details +--------+ + + + + | Date | Type | Department | Care Team | Description | +--------+ + + + + | 06/08/ | Orders Only | [facility] | Conversion | | | 2016 | | INFECTIOUS DISEASE | Transaction, | | | | | [address] [facility] | Provider Unknown | | | | | [place], [place] | [phone] | | | | | [address] | | | | | | [phone] | | | +--------+ + + + [...] Progress Notes Conversion Transaction, Provider Unknown - 06/08/2017 11:59 PM PDTFormatting of this note m ight be different from the original. Progress Notes by Daniella Edmonds MA at 06/08/17 8774 Author: Daniella Edmonds MA Service: (none) Author Type: Label Printing Machinist Filed: 06/15/17 0953 Encounter Date: 06/08/2017 Status: Signed Expeditionary Fighting Vehicle Crewman: Daniella Edmonds MA (Label Printing Machinist) Received Labs From [facility] From 06/08 (CBC,CMP, HIV Viral Load, CD4 Panel). docume nted in this encounter Plan of Treatment Not on filedocumented as of this encounter Procedures + +--------+ + + + | Procedure Name | Priori | Date/Time | Associated Diagnosis | Comments | | | ty | | | | + +--------+ + + + | EXTERNAL LAB: CBC | Routin | 06/08/2017 | | Results for this | | | e | 12:00 AM | | procedure are in the | | | | PDT | | results section. | + +--------+ + + + | HIV RNA, | Routin | 06/08/2017 | | Results for this | | QUANTITATIVE, PCR | e | 12:00 AM | | procedure are in the | | | | PDT | | results section. | + +--------+ + + + | CD4 T CELL PANEL | Routin | 06/08/2017 | | Results for this | | | e | 12:00 AM | | procedure are in the | | | | PDT | | results section. | + +--------+ + + + | COMPREHENSIVE | Routin | 06/08/2017 | | Results for this | | METABOLIC PANEL | e | 12:00 AM | | procedure are in the | | | | PDT | | results section. | + +--------+ + + + documented in this encounter Results HIV RNA, quantitative, PCR (06/08/2017 12:00 AM PDT) + +-------+ + + + | Component | Value | Ref Range | Performed | Pathologist | | | | | At | Signature | + +-------+ + + + | HIV-1 Ultra | 23119 | | EXTERNAL | | | Viral Load | | | LAB | | + +-------+ + + + | HIV-1 Ultra | 4.71 | | EXTERNAL | | | Log [...] +---------+ + + CD4 T Cell Panel (06/08/2017 12:00 AM PDT) + +---------+ + + [...] +---------+ + + + | CD4- | 14 (A) | 32 - 64 | EXTERNAL | | | | | | LAB | | + +---------+ + + + | CD4 | 167 (A) | 430 - 1800 | EXTERNAL | | | ABSOLUTE | [...] + +---------+ + + External Lab: CBC (06/08/2017 12:00 AM PDT) + + + + + + | Component | Value | Ref Range | Performed | Pathologist | | | | | At | Signature | + + + + + + | WBC | 2.7 (A) | 4.5 - 11.0 10 | EXTERNAL | | | | | | LAB | | + + + + + + | RED CELL | 4.49 | 10 | EXTERNAL | | | COUNT | | | LAB | | + + + + + + | Hgb | 15.1 | g/dL | EXTERNAL | | | | | | LAB | | + + + + + + | Hematocrit, | 43.5 | % | EXTERNAL | | | POC | | | LAB | | + + + + + + | MCV | 97.0 | fL | EXTERNAL | | | | | | LAB | | + + + + + + | MCH | 34 (A) | 27 - 33 pg | EXTERNAL | | | | | | LAB | | + + + + + + | MCHC | 35 | g/dL | EXTERNAL | | | | | | LAB | | + + + + + + | Platelet | 163 | K/ L | EXTERNAL | | | Count | | | LAB | | | Plasma | | | | | + + + + + + | RDW-CV | 16.7 (A) | 10.5 - 15.0 % | [...] + + + | % Segmented | 44.9 | % | EXTERNAL | | | | | | LAB | | | Neutrophils | | | | | + + + + + + | % | 43.3 | % | EXTERNAL | | | Lymphocytes | | | LAB | | + + + + + + | % Monocytes | 10.6 | % | EXTERNAL | | | | | | LAB | | + + + + + + | % | 0.9 | % | EXTERNAL | | | Eosinophils | | | LAB | | + + + + + + | % Basophils | 0.3 | % | EXTERNAL | | | [...] + +---------+ + + Comprehensive Metabolic Panel (06/08/2017 12:00 AM PDT) + +---------+ + + + | Component | Value | Ref Range | Performed | Pathologist | | | | | At | Signature | + +---------+ + + + | Glucose, | 96 | mg/dL | EXTERNAL | | | Fasting | | | LAB | | + +---------+ + + + | BUN | 10 | mg/dL | EXTERNAL | | | | | | LAB | | + +---------+ + + + | Creatinine | 0.88 | mg/dL | EXTERNAL | | | | | | LAB | | + +---------+ + + + | BUN/Creatin | 11.4 | | EXTERNAL | | | ine Ratio | | | LAB | | + +---------+ + + + | Calcium | 8.7 | mg/dL | EXTERNAL | | | | | | LAB | | + +---------+ + + + | Protein, | 7.4 | g/dL | EXTERNAL | | | Total | | | LAB | | + +---------+ + + + | Albumin | 4.1 | | EXTERNAL | | | | | | LAB | | + +---------+ + + + | Globulin | 3.3 | | EXTERNAL | | | | | | LAB | | + +---------+ + + + | A/G Ratio | 1.2 | | EXTERNAL | | | | | | LAB | | + +---------+ + + + | Bilirubin | 1.1 | mg/dL | EXTERNAL | | | Total | | | LAB | | + +---------+ + + + | ALP, | 84 | | EXTERNAL | | | External | | | LAB | | + +---------+ + + + | ALT | 13 | U/L | EXTERNAL | | | | | | LAB | | + +---------+ + + + | AST | 20 | U/L | EXTERNAL | | | | | | LAB | | + +---------+ + + + | Na | 138 | mmol/L | EXTERNAL | | | | | | LAB | | + +---------+ + + + | K | 3.3 (A) | 3.6 - 5.1 | EXTERNAL | | | | | mmol/L | LAB | | + +---------+ + + + | Cl | 108 | mmol/L | EXTERNAL | | | | | | LAB | | + +---------+ + + + | CO2 | 25 | mmol/L | EXTERNAL | | | | | | LAB | | + +---------+ + + + | Anion Gap | 8.3 | mmol/L | EXTERNAL | | | | | | LAB | | + +---------+ + + + | Estimated | 92 [...]
--- OUTSIDE RECORDS SUMMARY | ~2019-09-03 | XMS | Encounter Summary ---
Demographics + + + | Address | [address] [facility] | | | [place] [address] | + + + | Home Phone | | + + + | Preferred Language | Unknown | + + + | Marital Status | Single | + + + | Lutheran Affiliation | Unknown | + + + | Race | Unknown | + + + | Ethnic Group | Unknown | + + + Author + + + | Author | [facility] | | | and [place] | + + + | Organization | [facility] | | | and [place] | + + + | Address | Unknown | + + + | Phone | Unavailable | + + + Care Team Providers + +------+ + | Care Research Lab Assistant Name | Role | Phone | + [...] + | 07/24/ | Telephone | [facility] | Escobar Muir, | Appointment | | 2011 | | SURGERY [address] | [address], | (Surgery) | | | | [facility] [place] | [facility] [address], | | | | | [address] | [place] [address] | | | | | [phone] | [phone] | | | | | | | [...]
--- OUTSIDE RECORDS SUMMARY | ~2019-09-03 | XMS | Encounter Summary ---
Demographics + + + | Address | [address] [facility] | | | [place] [address] | + + + | Home Phone | | + + + | Preferred Language | Unknown | + + + | Marital Status | Single | + + + | Spiritism Affiliation | Unknown | + + + | Race | Unknown | + + + | Ethnic Group | Unknown | + + + Author + + + | Author | [facility] | | | and [place] | + + + | Organization | [facility] | | | and [place] | + + + | Address | Unknown | + + + | Phone | Unavailable | + + + Care Team Providers + +------+ + | Care Inpatient Nursing Aide Name | Role | Phone | + +------+ + | Ruben Shin MD | PCP | | + +------+ + Encounter Details +--------+ + + + + | Date | Type | Department | Care Team | Description | +--------+ + + + + | 10/11/ | Hospital | [facility] | Escobar Muir, | | | 2012 | Encounter | MED CTR [facility] INTRA OP | MD [address], | | | | | [address] | [address], | | | | | [place], [place] | [place] [address] | | | | | [address] | [phone] | | | | | [phone] | | | +--------+ + + + [...]
--- OUTSIDE RECORDS SUMMARY | ~2019-09-03 | XMS | Encounter Summary ---
Demographics + + + | Address | [address] [facility] | | | [place] [address] | + + + | Home Phone | | + + + | Preferred Language | Unknown | + + + | Marital Status | Single | + + + | Congregation Affiliation | Unknown | + + + | Race | Unknown | + + + | Ethnic Group | Unknown | + + + Author + + + | Author | [facility] | | | and [place] | + + + | Organization | [facility] | | | and [place] | + + + | Address | Unknown | + + + | Phone | Unavailable | + + + Care Team Providers + +------+ + | Care Cracker Off Name | Role | Phone | + [...] | | [address] | [address] | | | | | [place], [place] | [place] [address] | | | | | [address] | [phone] | | | | | [phone] | | | +--------+ + + + [...] | | | | | | [place] [address] | | | | + + + + + + | HIV-1 VIRAL | 108 (A)Comment: Testing | | EXTERNAL | | | LOAD | performed at [facility], [address] | | LAB | | | RESULT | [place] | | | | | | [place] [address] | | | | + + + [...] | | | | sting performed at [facility], | | | | | | [address], | | | | | | [place] [address] | | | | + + + [...] | | LAB | | | | [place] [address] | | | | + + + + + + | WBC | 3.8Comment: Testing | 3.8 - 11.0 | EXTERNAL | | | | performed at [facility] | 10*3/uL | LAB | | | | [facility], | | | | | | [address], [place] | | | | | | [address] | | | | + + + + + + | Lymphocytes | 38.0Comment: Testing | 15.0 - 48.0 % | EXTERNAL | | | Manual | performed at [facility] | | LAB | | | | [facility], | | | | | | [address], [place] | | | | | | [address] | | | | + + + + + + | Absolute | 1.40Comment: Testing | 1.00 - 3.90 | EXTERNAL | | | Lymphocytes | performed at [facility] | 10*3/uL | LAB | | | | [facility], | | | | | | [address], [place] | | | | | | [address] | | | | + + + + + + | CD4- | 21.1 (L)Comment: | 30.0 - 65.0 % | EXTERNAL | | | | ===NOTIFICATION | | LAB | | | | REQUIRED, REPORT SENT TO | | | | | | THE STATE | | | | | | HEALTHDEPARTMENT===Testi | | | | | | ng performed at [facility] | | | | | | [facility], | | | | | | [address], [place] | | | | | | [address] | | | | + + + [...] | | | | ng performed at [facility] | | | | | | [facility], | | | | | | [address], [place] | | | | | | [address] | | | | + + + [...] | | | | | | DETERMINEDBY [facility] | | | | | | [facility] | | | | | | [place]. IT HAS NOT BEEN | | | [...] | | | | | performed at [facility] | | | | | | [facility], | | | | | | [address], [place] | | | | | | [address] | | | | + + + [...] | | | Basophils | performed at [facility];[address] | 10*3/uL | LAB | | | | [address] | | | | | | [address];[place] [address] | | | | + + + [...] | | | | | | at [facility];[address] | | | | | | [facility];[place] | | | | | | [address] | | | | + + + [...]
--- OUTSIDE RECORDS SUMMARY | ~2019-09-03 | XMS | Encounter Summary ---
Demographics + + + | Address | [address] [facility] | | | [place] [address] | + + + | Home Phone | | + + + | Preferred Language | Unknown | + + + | Marital Status | Single | + + + | Worship Affiliation | Unknown | + + + | Race | Unknown | + + + | Ethnic Group | Unknown | + + + Author + + + | Author | [facility] | | | and [place] | + + + | Organization | [facility] | | | and [place] | + + + | Address | Unknown | + + + | Phone | Unavailable | + + + Care Team Providers + +------+ + | Care [place] Name | Role | Phone | + +------+ + | Grecia Miranda NP | PCP | | + +------+ + Encounter Details +--------+ + + + + | Date | Type | Department | Care Team | Description | +--------+ + + + + | 08/17/ | Hospital | [facility] | Ted Jacinto | Rectal pain; Other | | 2017 | Encounter | [facility] | MD Madyson [address] | constipation; | | | | INTRA OP [address] | Generalized | | | | [address] [place], [place] | [place] [address] | abdominal pain | | | | [address] | [phone] | | | | | [phone] | | | +--------+ + + + + Social History + +-------+ +--------+------+ | Tobacco Use | Types | Packs/Day | Years | Date | | | | | Used | | + +-------+ +--------+------+ | Current Some Day | | | | | | Smoker | | | | | + +-------+ +--------+------+ + + | Comments: CIGAR 2-3 TIMES WEEKLY FOR 4 YEARS. | + + + + +---------+ + | Alcohol Use [...] | | 0 | | | | Pjzzict-Poeiunv-Jbbn | | | | | | | [...] + + + +---------+ + + | lactulose 10 g/15 | Take 15 mLs by mouth | | 0 | 07/21/20 | | | mL solution | 2 times daily. | | | 17 | | + + + +---------+ + + | omeprazole | Take 1 capsule by | | 0 | 04/20/20 | | | (PRILOSEC) 20 mg | mouth 2 (two) times | | | 17 | | | capsule | daily before meals. | | | | | + + [...] Progress Notes Conversion Transaction, Provider Unknown - 08/17/2017 1:00 PM PSTFormatting of this note m ight be different from the original. Progress Notes by Indy Mandel RN at 08/17/17 1300 Author: Indy Mandel RN Service: (none) Author Type: Registered Nurse Filed: 08/17/17 2966 Date of Service: 08/17/17 1300 Status: Signed Pick Pack Worker: Indy Mandel RN (Registered Nurse) Patient stated he did not want an enema and did not want to wait for his procedure. Patient left facility at [address] Jacinto. Procedure canceled. docume nted in this encounter Plan of Treatment Not on filedocumented as of this encounter Visit Diagnoses + + | Diagnosis | + + | Rectal pain Anal or rectal pain | + + | Other constipation | + + | Generalized abdominal pain Abdominal pain, generalized | + + documented in this encounter"
--- OUTSIDE RECORDS SUMMARY | ~2019-09-03 | XMS | Encounter Summary ---
Demographics + + + | Address | [address] [facility] | | | [place] [address] | + + + | Home Phone | | + + + | Preferred Language | Unknown | + + + | Marital Status | Single | + + + | Yazdanism Affiliation | Unknown | + + + | Race | Unknown | + + + | Ethnic Group | Unknown | + + + Author + + + | Author | [facility] | | | and [place] | + + + | Organization | [facility] | | | and [place] | + + + | Address | Unknown | + + + | Phone | Unavailable | + + + Care Team Providers + +------+ + | Care Railroad Hand Name | Role | Phone | + +------+ + | Grecia Miranda NP | PCP | | + +------+ + Encounter Details +--------+ + + + + | Date | Type | Department | Care Team | Description | +--------+ + + + + | 08/11/ | Orders Only | [facility] | Conversion | | | 2016 | | INFECTIOUS DISEASE | Transaction, | | | | | [address] [facility] | Provider Unknown | | | | | [place], [place] | [phone] | | | | | [address] | | | | | | [phone] | | | +--------+ + + + [...] Progress Notes Conversion Transaction, Provider Unknown - 08/11/2017 11:59 PM PSTFormatting of this note m ight be different from the original. Progress Notes by Mariana Quan CMA at 08/11/17 4097 Author: Mariana Quan CMA Service: (none) Author Type: Black Ash Burner Operator Filed: 08/17/17 0814 Encounter Date: 08/11/2017 Status: Signed Project Engineer: Mariana Quan CMA (Black Ash Burner Operator) Received 08/11/2017 [facility]. Abstracted into [employer], sent to scan. (CBC, CMP, HIV RNA, CD4) cooper CARLIN. docume nted in this encounter Plan of Treatment Not on filedocumented as of this encounter Procedures + +--------+ + + + | Procedure Name | Priori | Date/Time | Associated Diagnosis | Comments | | | ty | | | | + +--------+ + + + | EXTERNAL LAB: CBC | Routin | 08/11/2017 | | Results for this | | | e | 2:30 PM | | procedure are in the | | | | PST | | results section. | + +--------+ + + + | HIV RNA, | Routin | 08/11/2017 | | Results for this | | QUANTITATIVE, PCR | e | 2:30 PM | | procedure are in the | | | | PST | | results section. | + +--------+ + + + | CD4 T CELL PANEL | Routin | 08/11/2017 | | Results for this | | | e | 2:30 PM | | procedure are in the | | | | PST | | results section. | + +--------+ + + + | COMPREHENSIVE | Routin | 08/11/2017 | | Results for this | | METABOLIC PANEL | e | 2:30 PM | | procedure are in the | | | | PST | | results section. | + +--------+ + + + documented in this encounter Results HIV RNA, quantitative, PCR (08/11/2017 2:30 PM PST) + +-------+ + + + | Component | Value | Ref Range | Performed | Pathologist | | | | | At | Signature | + +-------+ + + + | HIV-1 Ultra | 59 | Copies/mL | EXTERNAL | | | Viral Load | | | LAB | | + +-------+ + + + | HIV-1 Ultra | 1.77 | Log copies/mL | EXTERNAL | | | Log | [...] +---------+ + + CD4 T Cell Panel (08/11/2017 2:30 PM PST) + +---------+ + + + | [...] +---------+ + + + | CD4- | 17 (A) | 32 - 64 % | EXTERNAL | | | | | | LAB | | + +---------+ + + + | CD4 | 249 (A) | 430 - 1800 | EXTERNAL [...] + +---------+ + + External Lab: CBC (08/11/2017 2:30 PM PST) + +---------+ + + + | Component | Value | Ref Range | Performed | Pathologist | | | | | At | Signature | + +---------+ + + + | WBC | 4.2 (A) | 4.5 - 11.0 K/uL | EXTERNAL | | | | | | LAB | | + +---------+ + + + | RED CELL | 4.64 | 4.3 - 5.7 M/uL | EXTERNAL | | | COUNT | | | LAB | | + +---------+ + + + | Hgb | 15.4 | 13.5 - 18.0 | EXTERNAL | | | | | g/dL | LAB | | + +---------+ + + + | Hematocrit, | 44.6 | 41 - 50 % | EXTERNAL | | | POC | | | LAB | | + +---------+ + + + | MCV | 96.3 | 81 - 99 fL | EXTERNAL | | | | | | LAB | | + +---------+ + + + | MCH | 33 | 27 - 33 pg | EXTERNAL | | | | | | LAB | | + +---------+ + + + | MCHC | 35 | 30 - 36 g/dL | EXTERNAL | | | | | | LAB | | + +---------+ + + + | Platelet | 194 | 140 - 440 K/uL | EXTERNAL | | | Count | | | LAB | | | Plasma | | | | | + +---------+ + + + | RDW-CV | 13.5 | 10.5 - 15.0 % | EXTERNAL [...] + + + | % Segmented | 51.8 | 39 - 80 % | EXTERNAL | | | | | | LAB | | | Neutrophils | | | | | + +---------+ + + + | % | 35.6 | 24 - 44 % | EXTERNAL | | | Lymphocytes | | | LAB | | + +---------+ + + + | % Monocytes | 9.5 | 0 - 12 % | EXTERNAL | | | | | | LAB | | + +---------+ + + + | % | 2.2 | 0 - 6 % | EXTERNAL | | | Eosinophils | | | LAB | | + +---------+ + + + | % Basophils | 0.9 | 0 - 2 % | EXTERNAL [...] + +---------+ + + Comprehensive Metabolic Panel (08/11/2017 2:30 PM PST) + + + + + + | Component | Value | Ref Range | Performed | Pathologist | | | | | At | Signature | + + + + + + | Glucose, | 97 | 70 - 100 mg/dL | EXTERNAL | | | Fasting | | | LAB | | + + + + + + | BUN | 10 | 6 - 23 mg/dL | EXTERNAL | | | | | | LAB | | + + + + + + | Creatinine | 0.94 | 0.60 - 1.35 | EXTERNAL | | | | | mg/dL | LAB | | + + + + + + | BUN/Creatin | 10.6 | 6.0 - 28.6 | EXTERNAL | | | ine Ratio | | | LAB | | + + + + + + | Calcium | 9.2 | 8.4 - 10.2 | EXTERNAL | | | | | mg/dL | LAB | | + + + + + + | Protein, | 7.5 | 6.0 - 8.0 g/dL | EXTERNAL | | | Total | | | LAB | | + + + + + + | Albumin | 4.0 | 3.5 - 5.0 g/dL | EXTERNAL | | | | | | LAB | | + + + + + + | Globulin | 3.5 | 1.8 - 3.5 g/dL | EXTERNAL | | | | | | LAB | | + + + + + + | A/G Ratio | 1.1 | 1.1 - 2.4 | EXTERNAL | | | | | | LAB | | + + + + + + | Bilirubin | 1.1 | 0.0 - 1.2 mg/dL | EXTERNAL | | | Total | | | LAB | | + + + + + + | ALP, | 74 | 31 - 120 U/L | EXTERNAL | | | External | | | LAB | | + + + + + + | ALT | 15 | 7 - 52 U/L | EXTERNAL | | | | | | LAB | | + + + + + + | AST | 18 | 13 - 39 U/L | EXTERNAL | | | | | | LAB | | + + + + + + | Na | 141 | 132 - 143 meq/L | EXTERNAL | | | | | | LAB | | + + + + + + | K | 3.5 (A) | 3.6 - 5.1 meq/L | EXTERNAL | | | | | | LAB | | + + + + + + | Cl | 108 | 95 - 112 meq/L | EXTERNAL | | | | | | LAB | | + + + + + + | CO2 | 21 | 19 - 31 meq/L | EXTERNAL | | | | | | LAB | | + + + + + + | Anion Gap | 15.5 | 7 - 21 | EXTERNAL | | | | | | LAB | | + + + + + + | Estimated | 85Comment: Reference | mL/min | EXTERNAL | | | GFR [...]
--- OUTSIDE RECORDS SUMMARY | ~2019-09-03 | XMS | Encounter Summary ---
Demographics + + + | Address | [address] [facility] | | | [place] [address] | + + + | Home Phone | | + + + | Preferred Language | Unknown | + + + | Marital Status | Single | + + + | Latter-Day Affiliation | Unknown | + + + | Race | Unknown | + + + | Ethnic Group | Unknown | + + + Author + + + | Author | [facility] | | | and [place] | + + + | Organization | [facility] | | | and [place] | + + + | Address | Unknown | + + + | Phone | Unavailable | + + + Care Team Providers + +------+ + | Care Cotton Factor Name | Role | Phone | + +------+ + | Ruben Shin MD | PCP | | + +------+ + Reason for Referral Surgical (Routine) +--------+ + + + + + | Status | Reason | Specialty | Diagnoses / | Referred By | Referred To | | | | | Procedures | Contact | Contact | +--------+ + + + + + | Closed | Specialty | Surgery / | Diagnoses | Muir, | Muir, | | | Services | General | Ventral | Escobar Reynolds MD | Escobar Reynolds MD | | | Required | Surgery | hernia | [address] | | | | | Procedures | [address], [address] | [address] | | | | | [place] IMPLANT | [address] [place] | | | | | MESH [place]ERNIA | [place], [place] | [place] | | | | | REPAIR/DEBRI | [address] | [address] Phone: | | | | | [place]ONE | Phone: | [phone] | | | | | CLOSURE | [phone] | Fax: | | | | | | Fax: | [phone] | | | | | | [phone] | | +--------+ + + + + + Encounter Details +--------+ + + + + | Date | Type | Department | Care Team | Description | +--------+ + + + + | 09/26/ | Orders Only | [facility] | Escobar Muir, | Ventral hernia | | 2012 | | SURGERY [address] | [address], | (Primary Dx) | | | | [place], [place] | [address], | | | | | [address] | [place] [address] | | | | | [phone] | [phone] | | | | | | | [...] as of this encounter Plan of Treatment + + +--------+ + + | Name | Type | Priori | Associated Diagnoses | Order Schedule | | | | ty | | | + + +--------+ + + | Ambulatory referral | Outpatient | Routin | Ventral hernia | Ordered: 09/26/2012 | | to General Surgery | Referral | e | | | + + +--------+ + + documented as of this encounter Visit Diagnoses + + | Diagnosis | + + | Ventral hernia - Primary Ventral hernia, unspecified, without mention of obstruction | | or gangrene | + + documented in this encounter"
--- OUTSIDE RECORDS SUMMARY | ~2019-09-03 | XMS | Encounter Summary ---
Demographics + + + | Address | [address] [facility] | | | [place] [address] | + + + | Home Phone | | + + + | Preferred Language | Unknown | + + + | Marital Status | Single | + + + | Spiritism Affiliation | Unknown | + + + | Race | Unknown | + + + | Ethnic Group | Unknown | + + + Author + + + | Author | [facility] | | | and [place] | + + + | Organization | [facility] | | | and [place] | + + + | Address | Unknown | + + + | Phone | Unavailable | + + + Care Team Providers + +------+ + | Care Food Court Team Member Name | Role | Phone | + +------+ + | Grecia Miranda NP | PCP | | + +------+ + Encounter Details +--------+ + + + + | Date | Type | Department | Care Team | Description | +--------+ + + + + | 12/23/ | Orders Only | [facility] | Conversion | | | 2016 | | INFECTIOUS DISEASE | Transaction, | | | | | [address] [facility] | Provider Unknown | | | | | [place], [place] | [phone] | | | | | [address] | | | | | | [phone] | | | +--------+ + + + [...] | EXTERNAL LAB: CBC | Routin | 12/23/2016 | | Results for this | | | e | 12:00 AM | | procedure are in the | | | | PDT | | results section. | + +--------+ + + + | HIV RNA, | Routin | 12/23/2016 | | Results for this | | QUANTITATIVE, PCR | e | 12:00 AM | | procedure are in the | | | | PDT | | results section. | + +--------+ + + + | CD4 T CELL PANEL | Routin | 12/23/2016 | | Results for this | | | e | 12:00 AM | | procedure are in the | | | | PDT | | results section. | + +--------+ + + + | COMPREHENSIVE | Routin | 12/23/2016 | | Results for this | | METABOLIC PANEL | e | 12:00 AM | | procedure are in the | | | | PDT | | results section. | + +--------+ + + + documented in this encounter Results HIV RNA, quantitative, PCR (12/23/2016 12:00 AM PDT) + + + + + + | Component | Value | Ref Range | Performed | Pathologist | | | | | At | Signature | + + + + + + | HIV-1 Ultra | 4170 (A) | 0 copies/mL | EXTERNAL | | | Viral Load | | | LAB | | + + + + + + | HIV-1 Ultra | 3.62 (A) | 0 Log Copies | EXTERNAL | | | Log | [...] +---------+ + + CD4 T Cell Panel (12/23/2016 12:00 AM PDT) + +---------+ + + [...] +---------+ + + + | CD4- | 13 (A) | 32 - 64 % | EXTERNAL | | | | | | LAB | | + +---------+ + + + | CD4 | 347 (A) | 430 - 1800 | EXTERNAL [...] + +---------+ + + External Lab: CBC (12/23/2016 12:00 AM PDT) + + + + + + | Component | Value | Ref Range | Performed | Pathologist | | | | | At | Signature | + + + + + + | WBC | 6.2 | 10 | EXTERNAL | | | | | | LAB | | + + + + + + | RED CELL | 4.75 | 10 | EXTERNAL | | | COUNT | | | LAB | | + + + + + + | Hgb | 14.8 | g/dL | EXTERNAL | | | | | | LAB | | + + + + + + | Hematocrit, | 43.4 | % | EXTERNAL | | | POC | | | LAB | | + + + + + + | MCV | 91.4 | fL | EXTERNAL | | | | | | LAB | | + + + + + + | MCH | 31 | pg | EXTERNAL | | | | | | LAB | | + + + + + + | MCHC | 34 | g/dL | EXTERNAL | | | | | | LAB | | + + + + + + | Platelet | 236 | K/ L | EXTERNAL | | [...] + + + | % Segmented | 48.1 | % | EXTERNAL | | | | | | LAB | | | Neutrophils | | | | | + + + + + + | % | 41.9 | % | EXTERNAL | | | Lymphocytes | | | LAB | | + + + + + + | % Monocytes | 8.3 | % | EXTERNAL | | | | | | LAB | | + + + + + + | % | 0.9 | % | EXTERNAL | | | Eosinophils | | | LAB | | + + + + + + | % Basophils | 0.8 | % | EXTERNAL | | | [...] + +---------+ + + Comprehensive Metabolic Panel (12/23/2016 12:00 AM PDT) + +-------+ + + + | Component | Value | Ref Range | Performed | Pathologist | | | | | At | Signature | + +-------+ + + + | Glucose, | 86 | mg/dL | EXTERNAL | | | Fasting | | | LAB | | + +-------+ + + + | BUN | 10 | mg/dL | EXTERNAL | | | | | | LAB | | + +-------+ + + + | Creatinine | 0.89 | mg/dL | EXTERNAL | | | | | | LAB | | + +-------+ + + + | BUN/Creatin | 11.2 | | EXTERNAL | | | ine [...] +-------+ + + + | Bilirubin | 1.1 | mg/dL | EXTERNAL | | | Total | | | LAB | | + +-------+ + + + | ALP, | 90 | | EXTERNAL | | | External | | | LAB | | + +-------+ + + + | ALT | 12 | U/L | EXTERNAL | | | | | | LAB | | + +-------+ + + + | AST | 18 | U/L | EXTERNAL | | | | | | LAB | | + +-------+ + + + | Na | 140 | mmol/L | EXTERNAL | | | | | | LAB | | + +-------+ + + + | K | 3.6 | mmol/L | EXTERNAL | | | | | | LAB | | + +-------+ + + + | Cl | 107 | mmol/L | EXTERNAL | | | | | | LAB | | + +-------+ + + + | CO2 | 21 | mmol/L | EXTERNAL | | | | | | LAB | | + +-------+ + + + | Anion Gap | 15.6 | mmol/L | EXTERNAL | | | | | | LAB | | + +-------+ + + + | Estimated | 91 | mg/dL | EXTERNAL | | | [...]
--- OUTSIDE RECORDS SUMMARY | ~2019-09-03 | XMS | Encounter Summary ---
Demographics + + + | Address | [address] [facility] | | | [place] [address] | + + + | Home Phone | | + + + | Preferred Language | Unknown | + + + | Marital Status | Single | + + + | Uatsdin Affiliation | Unknown | + + + | Race | Unknown | + + + | Ethnic Group | Unknown | + + + Author + + + | Author | [facility] | | | and [place] | + + + | Organization | [facility] | | | and [place] | + + + | Address | Unknown | + + + | Phone | Unavailable | + + + Care Team Providers + +------+ + | Care Estate And Trust Tax Principal Name | Role | Phone | + +------+ + | Grecia Miranda NP | PCP | | + +------+ + Encounter Details +--------+ + + + + | Date | Type | Department | Care Team | Description | +--------+ + + + + | 12/27/ | Orders Only | [facility] | Baljit Staples DO | | | 2013 | | INFECTIOUS DISEASE | [address] | | | | | [address] | [place] [address] | | | | | [place], [place] | [phone] | | | | | [address] | | | | | | [phone] | | | +--------+ + + + [...] documented as of this encounter Progress Notes Baljit Staples DO - 12/27/2013 2:24 PM PDT Progress Notes by Baljit Staples DO at 12/27/13 1424 Author: Baljit Staples DO Service: (none) Author Type: Physician Filed: 12/27/13 1504 Encounter Date: 12/27/2013 Status: Signed Keyboard Specialist: Baljit Staples DO (Physician) Subjective: Patient ID: Vu Colbert is a 43 y.o. male. HPI Comments: Chief complaint: Establish care for HIV This is a pleasant 43 for old male who was diagnosed HIV positive in 2007 after a needlesti ck injury in the workplace. He is not aware of any other episodes of potential exposure. T he patient was monitored for one year and then ultimately started on Atripla which caused si gnificant pain in his legs and nighttime sweats. This regimen was replaced with Complera wh ich has been much better tolerated. The patient moved from [place] to [place] in 2011 and had several months. Where he was unable to obtain medications. He established care with Evelina Shin and was restarted on his Complera. He had low-level viremia at that time, but unit s I did not show any evidence of resistance. The patient has remained on Complera faithfull y since that time, always obtaining refills. He does not believe that he has missed any dos es until last week when he ran out of medication and had no refills provided to him. He is upset that his refills were not provided, but admits that he had not followed up with Dr. Garcia since 2011. He does not believe that he had any lab work until last week. He denies an y fevers or chills. He has not had headaches, cough, breathing difficulty. He denies any r ashes. No nausea, vomiting or diarrhea. The patient has chronic abdominal pain related to a prior hernia repair surgery. The pain is usually in the abdominal wall and is related to position and movement. He denies any ind igestion, heartburn, or nausea. He takes [place] for the pain and has also recently been star nestor on Prilosec. He states that he uses the Prilosec as needed for abdominal pain, but not every day. 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 I have also received a re ferral from the patient's primary care provider which indicates that he is currently being t reated with Complera, Prilosec and Tylenol with hydrocodone. Note from primary care clinic indicates that the patient has not seen any provider for the past 8-9 months, but was previo usly treated by an infectious disease specialist in [place] by the name of Dr. Shin. Graciela mendez takes [place] for chronic abdominal pain. He moved to this region about 2 years ago from [facility] and was recently switched to Complera due to side effects that he was having from his previous medication. I have a note from Dr. Ruben Shin in [place] from April 2012 i n which case he was establishing care after recently moving from [place]. At that time, he requested a refill of his Complera and had been off his medications for a while. He was champ gnosed in 2007. Laboratory review: Labs collected on December 17 show creatinine 0.92, normal liver transaminases, total protein 8.8, bilirubin 1.3, normal amylase and lipase, HIV viral load 2150 copies, white blood cell count 4.9 was unremarkable differential, absolute CD4 count 508, 27% of the lymphocytes. La bs from April of 2011 also showed normal liver and kidney function tests, white blood ce ll count 3.9 was unremarkable differential, negative syphilis screen, negative clue diarrhea and Chlamydia screen, CD4 count 531 (34.5%, HIV viral load 1933 copies. A genotype was per formed in April 2011 which showed no evidence of resistance to all agents tested. Phenot ypic assay was also performed and showed no evidence of resistance. The patient had positive hepatitis B core antibody and hepatitis A total antibody. Hepatitis C antibody negative. Other The following portions of the patient's history were reviewed and updated as appropriate: a llergies, current medications, past family history, past medical history, past social histor y, past surgical history and problem list. Review of Systems Constitutional: Negative for fever, chills, diaphoresis and fatigue. HENT: Negative for sore throat, rhinorrhea, mouth sores, trouble swallowing, postnasal drip , sinus pressure and tinnitus. Eyes: Negative for photophobia, pain and visual disturbance. Respiratory: Negative for cough, shortness of breath and wheezing. Cardiovascular: Negative for chest pain and palpitations. Gastrointestinal: Negative for nausea, vomiting, abdominal pain and diarrhea. Genitourinary: Negative for dysuria, urgency, frequency, hematuria and discharge. Musculoskeletal: Negative for myalgias and arthralgias. Skin: Negative for color change and rash. Neurological: Negative for dizziness, weakness, light-headedness, numbness and headaches. Hematological: Negative for adenopathy. Does not bruise/bleed easily. Psychiatric/Behavioral: Negative for confusion, sleep disturbance and agitation. The patien t is not nervous/anxious. Objective: Physical Exam Nursing note and vitals reviewed. Constitutional: He is oriented to person, place, and time. Vital signs are normal. He appea rs well-developed and well-nourished. He is cooperative. HENT: Head: Normocephalic and atraumatic. Right Ear: Ear canal normal. Left Ear: Ear canal normal. Nose: Nose normal. Mouth/Throat: Uvula is midline, oropharynx is clear and moist and mucous membranes are norm al. No oropharyngeal exudate. There is no evidence of thrush. Eyes: Conjunctivae normal, EOM and lids are normal. Pupils are equal, round, and reactive t o light. Neck: Phonation normal. Neck supple. No edema and no erythema present. No thyromegaly prese nt. Cardiovascular: Normal rate, regular rhythm and normal heart sounds. Pulmonary/Chest: Effort normal and breath sounds normal. He exhibits no mass and no tendern ess. Abdominal: Soft. Bowel sounds are normal. There is no hepatosplenomegaly. There is generali zed tenderness. 4 cm midline keloid scar in epigastric region, mild diffuse tenderness. Musculoskeletal: No gross deformity. No active arthritis. Lymphadenopathy: He has no cervical adenopathy. He has no axillary adenopathy. No inguinal adenopathy noted on the right or left side. Neurological: He is alert and oriented to person, place, and time. He has normal strength. No cranial nerve deficit or sensory deficit. Gait normal. Reflex Scores: Bicep reflexes are 2+ on the right side and 2+ on the left side. Patellar reflexes are 2+ on the right side and 2+ on the left side. Skin: Skin is warm, dry and intact. No rash noted. He is not diaphoretic. No cyanosis. Nail s show no clubbing. Assessment and Plan: Issues Addressed: HIV disease The patient presents with a history of previous treatment including Atripla which was poorl y tolerated, currently on Complera which has been well-tolerated. He has persistent low-lev el viremia, likely on the basis of concurrent treatment with Prilosec which can reduce absor ption of Complera. I have advised him to stop taking Prilosec and have provided refills for Complera. I have ordered a genotype, was hoped that this will be reassuring with regard to resistance. His regimen will be adjusted as indicated if there is persistent present, othe rwise we will repeat viral load and CD4 count in about 6 weeks. I am going to clarify his h epatitis B status, noting that he recently had a positive core antibody. I have ordered hep atitis B surface antigen and surface antibody. I will also obtain baseline toxoplasma antib david and quantiferon gold test. The patient was advised the importance of proper clinical an d laboratory followup to monitor for treatment efficacy and potential toxicity. I would agr ee with his previous HIV provider that failure to followup for more than a year would be a a n appropriate reason to stop providing refills. The patient expressed understanding and ind icated that he will followup as recommended. A total of 45 minutes was spent face to face with the patient, of which greater than 25 min utes was spent in education and councilling regarding the above issues. Visit Diagnoses and Associated Orders: Hiv disease - Human immunodeficiency virus 1 genotyping - CD4 (helper cell) - HIV1 US viral load P - T gondii Ab, IgG - Hepatitis B surface antibody - Hepatitis B surface antigen - Quantiferon TB gold Other Orders - Discontinue: omeprazole (PRILOSEC) 40 MG capsule; Take 40 mg by mouth daily. - Discontinue: qimolzvlds-uftzozkc-zyfutoxmt (COMPLERA) 200-25-300 MG per tablet; Take 1 ta blet by mouth daily. - HYDROcodone-acetaminophen (NORCO) 5-325 MG per tablet; Take 1 tablet by mouth every 6 (si x) hours as needed. - ckiaprbdwu-nbcublgl-yonwjwvls (COMPLERA) 200-25-300 MG per tablet; Take 1 tablet by mouth daily. documented in this enc ounter Plan of Treatment Not on filedocumented as of this encounter Procedures + +--------+ + + + | Procedure Name | Priori | Date/Time | Associated Diagnosis | Comments | | | ty | | | | + +--------+ + + + | QUANTIFERON GOLD | Routin | 12/27/2013 | | Results for this | | | e | 3:15 PM | | procedure are in the | | | | PDT | | results section. | + +--------+ + + + | TOXOPLASMA GONDII | Routin | 12/27/2013 | | Results for this | | AB, IGG | e | 3:15 PM | | procedure are in the | | | | PDT | | results section. | + +--------+ + + + | HEPATITIS B SURFACE | Routin | 12/27/2013 | | Results for this | | AB | e | 3:15 PM | | procedure are in the | | | | PDT | | results section. | + +--------+ + + + | HEPATITIS B SURFACE | Routin | 12/27/2013 | | Results for this | | AG | e | 3:15 PM | | procedure are in the | | | | PDT | | results section. | + +--------+ + + + documented in this encounter Results Toxoplasma Gondii Ab, IgG (12/27/2013 3:15 PM PDT) + + + + + + | Component | Value | Ref Range | Performed | Pathologist | | | | | At | Signature | + + + + + + | Toxoplasma | <3.0Comment: < 6.0 NO | [iU]/mL | EXTERNAL | | | gondii IgG | SIGNIFICANT LEVEL OF IGG | | LAB | | | | ANTIBODY DETECTED. | | | | + + + + + + + + | Specimen | + + | Blood specimen | | (specimen) | + + + +---------+ + + | Performing | Address | City/State/Zipcode | Phone Number | | Organization | | | | + +---------+ + + | EXTERNAL LAB | | | | + +---------+ + + Quantiferon Gold (12/27/2013 3:15 PM PDT) + + + + + + | Component | Value | Ref Range | Performed | Pathologist | | | | | At | Signature | + + + + + + | Quantiferon | NEGATIVE | | EXTERNAL | | | TB Gold | | | LAB | | + + + + + + | TB 1 | 0.00Comment: <0.35 M | [iU]/mL | EXTERNAL | | | Antigen | TUBERCULOSIS | | LAB | | | Minus NIL | UNLIKELYTHIS IS A | | | | | | QUALITATIVE TEST. THE | | | | | | IU/ML VALUE SHOULD NOT | | | | | | BE USED TOMONITOR | | | | | | DISEASE PROGRESSION OR | | | | | | RESPONSE TO THERAPY. | | | | | | DIAGNOSING OREXCLUDING | | | | | | TUBERCULOSIS DISEASE | | | | | | AND ASSESSING THE | | | | | | PROBABILITY OF | | | | | | LTBIREQUIRE A | | | | | | COMBINATION OF | | | | | | EPIDEMIOLOGICAL, | | | | | | HISTORICAL, MEDICAL | | | | | | ANDDIAGNOSTIC FINDINGS | | | | | | THAT SHOULD BE TAKEN | | | | | | INTO ACCOUNT | | | | | | WHENINTERPRETING | | | | | | QUANTIFERON-TB GOLD | | | | | | RESULTS. | | | | + + + + + + + + | Specimen | + + | | + + + +---------+ + + | Performing | Address | City/State/Zipcode | Phone Number | | Organization | | | | + +---------+ + + | EXTERNAL LAB | | | | + +---------+ + + Hepatitis B Surface Ab (12/27/2013 3:15 PM PDT) + + + + + + | Component | Value | Ref Range | Performed | Pathologist | | | | | At | Signature | + + + + + + | HEP B | >24.00 (H)Comment: <1.00 | IV | EXTERNAL | | | SURFACE | Non | | LAB | | | ANTIBODY | Immune1.00 OR MORE | | | | | | Indicates vaccine | | | | | | response or response to | | | | | | HBV infection. An Index | | | | | | Value (IV) of 1.00 is | | | | | | equivalent to 10 mIU/mL. | | | | | | Samples with an IV of | | | | | | 1.00 or greater are | | | | | | considered reactive | | | | | | (protected) in | | | | | | accordance with CDC | | | | | | Guidelines. | | | | + + + + + + + + | Specimen | + + | Blood specimen | | (specimen) | + + + +---------+ + + | Performing | Address | City/State/Zipcode | Phone Number | | Organization | | | | + +---------+ + + | EXTERNAL LAB | | | | + +---------+ + + Hepatitis B Surface Ag (12/27/2013 3:15 PM PDT) + + + + + + | Component | Value | Ref Range | Performed | Pathologist | | | | | At | Signature | + + + + + + | Hepatitis B | NON REACTIVE | | EXTERNAL | | | Surface Ag | | | LAB | | + [...]
--- OUTSIDE RECORDS SUMMARY | ~2019-09-03 | XMS | Encounter Summary ---
Demographics + + + | Address | [address] [facility] | | | [place] [address] | + + + | Home Phone [...] + + + | Author | [facility] | | | and [place] | + + + | Organization | [facility] | | | and [place] | + + + | Address | Unknown | + + + | Phone | Unavailable | + + + Care Team Providers + +------+ + | Care Pediatric Nephrologist Name | Role | Phone | + +------+ + | Grecia Miranda NP | PCP | | + +------+ + Encounter Details +--------+ + + + + | Date | Type | Department | Care Team | Description | +--------+ + + + + | 11/16/ | Orders Only | [facility] | Baljit Staples DO | | | 2018 | | [address] | [address] | | | | | [place], [place] | [place] [address] | | | | | [address] | [phone] | | | | | [phone] | | | +--------+ + + + [...] | EXTERNAL LAB: CBC | Routin | 11/16/2017 | | Results for this | | | e | 2:34 PM | | procedure are in the | | | | PDT | | results section. | + +--------+ + + + | HIV RNA, | Routin | 11/16/2017 | | Results for this | | QUANTITATIVE, PCR | e | 2:34 PM | | procedure are in the | | | | PDT | | results section. | + +--------+ + + + | CD4 T CELL PANEL | Routin | 11/16/2017 | | Results for this | | | e | 2:34 PM | | procedure are in the | | | | PDT | | results section. | + +--------+ + + + | COMPREHENSIVE | Routin | 11/16/2017 | | Results for this | | METABOLIC PANEL | e | 2:34 PM | | procedure are in the | | | | PDT | | results section. | + +--------+ + + + documented in this encounter Results HIV RNA, quantitative, PCR (11/16/2017 2:34 PM PDT) + + + + + + | Component | Value | Ref Range | Performed | Pathologist | | | | | At | Signature | + + + + + + | HIV-1 RNA | 5420Comment: The | {Copies}/mL | EXTERNAL | | | by PCR | reportable range for | | LAB | | | | this assay is 20 to | | | | | | 10,000,000copies HIV-1 | | | | | | RNA/mL. | | | | + + + + + + | HIV-1 RNA | 3.734 | | EXTERNAL | | | by PCR, Qn | | | LAB | | + + + + + + + + | Specimen | + + | | + + + +---------+ + + | Performing | Address | City/State/Zipcode | Phone Number | | Organization | | | | + +---------+ + + | EXTERNAL LAB | | | | + +---------+ + + CD4 T Cell Panel (11/16/2017 2:34 PM PDT) + + + + + + | Component | Value | Ref Range | Performed | Pathologist | | | | | At | Signature | + + + + + + | CD4 | 216 (L)Comment: | /uL | EXTERNAL | | | ABSOLUTE | Reference range: 359 to | | LAB | | | (REF) | 1519 | | | | + + + + + + | CD4- | 14.4 (L)Comment: | % | EXTERNAL | | | | Reference range: 30.8 to | | LAB | | | | 58.5 | | | | + + + + + + | WBC | 3.3 (L)Comment: | | EXTERNAL | | | | Reference range: 3.4 to | | LAB | | | | 10.8 | | | | + + + + + + | RBC | 4.16Comment: Reference | | EXTERNAL | | | | range: 4.14 to 5.80 | | LAB | | + + + + + + | Hgb | 13.2Comment: Reference | g/dL | EXTERNAL | | | | range: 13.0 to 17.7 | | LAB | | + + + + + + | PACKED CELL | 40.2Comment: Reference | % | EXTERNAL | | | VOLUME | range: 37.5 to 51.0 | | LAB | | + + + + + + | MCV | 97Comment: Reference | | EXTERNAL | | | | range: 79 to 97 | | LAB | | + + + + + + | MCH | 31.7Comment: Reference | pg | EXTERNAL | | | | range: 26.6 to 33.0 | | LAB | | + + + + + + | MCHC, POC | 32.8Comment: Reference | g/dL | EXTERNAL | | | | range: 31.5 to 35.7 | | LAB | | + + + + + + | RDW-CV | 15.6 (H)Comment: | % | EXTERNAL | | | | Reference range: 12.3 to | | LAB | | | | 15.4 | | | | + + + + + + | Platelet | 187Comment: Reference | | EXTERNAL | | | Count | range: 150 to 379 | | LAB | | + + + + + + | % Segmented | 46Comment: Reference | % | EXTERNAL | | | | range: Not Estab. | | LAB | | | Neutrophils | | | | | + + + + + + | Lymphocytes | 44Comment: Reference | % | EXTERNAL | | | Manual | range: Not Estab. | | LAB | | + + + + + + | MONOCYTES | 9Comment: Reference | % | EXTERNAL | | | | range: Not Estab. | | LAB | | + + + + + + | EOS % URINE | 1Comment: Reference | % | EXTERNAL | | | | range: Not Estab. | | LAB | | + + + + + + | Basophils | 0Comment: Reference | % | EXTERNAL | | | %, External | range: Not Estab. | | LAB | | + + + + + + | Neutrophils | 1.5Comment: Reference | | EXTERNAL | | | , Absolute, | range: 1.4 to 7.0 | | LAB | | | External | | | | | + + + + + + | Absolute | 1.5Comment: Reference | | EXTERNAL | | | Lymphocytes | range: 0.7 to 3.1 | | LAB | | + + + + + + | Absolute | 0.3Comment: Reference | | EXTERNAL | | | Monocytes | range: 0.1 to 0.9 | | LAB | | + + + + + + | Absolute | 0.0Comment: Reference | | EXTERNAL | | | Eosinophils | range: 0.0 to 0.4 | | LAB | | + + + + + + | Basophils, | 0.0Comment: Reference | | EXTERNAL | | | Absolute | range: 0.0 to 0.2 | | LAB | | + + + + + + | Absolute | 0Comment: Reference | % | EXTERNAL | | | Immature | range: Not Estab. | | LAB | | | Granulocyte | | | | | | s | | | | | + + + + + + | Absolute | 0.0Comment: Reference | | EXTERNAL | | | Immature | range: 0.0 to 0.1 | | LAB | | | Granulocyte | | | | | | s | | | | | + + [...] + +---------+ + + External Lab: CBC (11/16/2017 2:34 PM PDT) + + + + + + | Component | Value | Ref Range | Performed | Pathologist | | | | | At | Signature | + + + + + + | WBC | 3.80 | 3.80 - 11.00 | EXTERNAL | | | | | 10*3/uL | LAB | | + + + + + + | RED CELL | 4.08 (L) | 4.20 - 5.70 | EXTERNAL | | | COUNT | | 10*6/uL | LAB | | + + + + + + | Hgb | 13.5 | 13.2 - 17.0 | EXTERNAL | | | | | g/dL | LAB | | + + + + + + | Hematocrit, | 38.3 (L) | 39.0 - 50.0 % | EXTERNAL | | | POC | | | LAB | | + + + + + + | MCV | 93.7 | 80.0 - 100.0 fL | EXTERNAL | | | | | | LAB | | + + + + + + | MCH | 33.0 | 27.0 - 34.0 pg | EXTERNAL | | | | | | LAB | | + + + + + + | MCHC | 35.2 | 32.0 - 35.5 | EXTERNAL | | | | | g/dL | LAB | | + + + + + + | RDW-CV | 48.6 | 37 - 53 fL | EXTERNAL | | | | | | LAB | | + + + + + + | Platelet | 188 | 150 - 400 | EXTERNAL | | | Count | | 10*3/uL | LAB | | | Plasma | | | | | + + + + + + | MPV | 8.8 | fL | EXTERNAL | | | | | | LAB | | + + + + + + | Differentia | MANUAL | | EXTERNAL | | | l Type | | | LAB | | + + + + + + | Segmented | 49 | % | EXTERNAL | | | Neutrophils | | | LAB | | | Manual | | | | | + + + + + + | % Bands | 1 | % | EXTERNAL | | | | | | LAB | | + + + + + + | Lymphocytes | 47 | % | EXTERNAL | | | Manual | | | LAB | | + + + + + + | Monocytes | 3 | % | EXTERNAL | | | Manual | | | LAB | | + + + + + + | Absolute | 1.86 (L) | 1.90 - 7.40 | EXTERNAL | | | Neutrophils | | 10*3/uL | LAB | | + + + + + + | Bands | 0.04 | 0.00 - 0.20 | EXTERNAL | | | Manual | | 10*3/uL | LAB | | + + + + + + | Absolute | 1.79 | 1.00 - 3.90 | EXTERNAL | | | Lymphocytes | | 10*3/uL | LAB | | + + + + + + | Absolute | 0.11 | 0.00 - 0.80 | EXTERNAL | | | Monocytes | | 10*3/uL | LAB | | + + + + + + | RBC | RBC AND PLT MORPHOLOGY | | EXTERNAL | | | Morphology | APPEAR NORMAL | | LAB | | + + [...] + +---------+ + + Comprehensive Metabolic Panel (11/16/2017 2:34 PM PDT) + + + + + + | Component | Value | Ref Range | Performed | Pathologist | | | | | At | Signature | + + + + + + | Na | 143 | 135 - 145 | EXTERNAL | | | | | mmol/L | LAB | | + + + + + + | K | 3.4 (L) | 3.5 - 4.9 | EXTERNAL | | | | | mmol/L | LAB | | + + + + + + | Cl | 108 | 99 - 109 mmol/L | EXTERNAL | | | | | | LAB | | + + + + + + | CO2 | 27 | 23 - 32 mmol/L | EXTERNAL | | | | | | LAB | | + + + + + + | Anion Gap | 11 | 5 - 20 mmol/L | EXTERNAL | | | | | | LAB | | + + + + + + | Glucose, | 84 | 65 - 99 mg/dL | EXTERNAL | | | Fasting | | | LAB | | + + + + + + | BUN | 9 | 8 - 25 mg/dL | EXTERNAL | | | | | | LAB | | + + + + + + | Creatinine | 0.8 | 0.70 - 1.30 | EXTERNAL | | | | | mg/dL | LAB | | + + + + + + | BUN/Creatin | 11 | | EXTERNAL | | | ine Ratio | | | LAB | | + + + + + + | Calcium | 8.6 | 8.5 - 10.5 | EXTERNAL | | | | | mg/dL | LAB | | + + + + + + | Protein, | 7.5 | 6.3 - 8.2 g/dL | EXTERNAL | | | Total | | | LAB | | + + + + + + | Albumin | 3.6 | 3.6 - 5.0 g/dL | EXTERNAL | | | | | | LAB | | + + + + + + | Globulin | 3.9 | 1.3 - 4.9 g/dL | EXTERNAL | | | | | | LAB | | + + + + + + | A/G Ratio | 0.9 (L) | 1.0 - 2.4 | EXTERNAL | | | | | | LAB | | + + + + + + | Bilirubin | 0.9 | 0.1 - 1.5 mg/dL | EXTERNAL | | | Total | | | LAB | | + + + + + + | ALP, | 86 | 35 - 115 U/L | EXTERNAL | | | External | | | LAB | | + + + + + + | AST | 19 | 10 - 45 U/L | EXTERNAL | | | | | | LAB | | + + + + + + | ALT | 22 | 10 - 65 U/L | EXTERNAL | | | | | | LAB | | + + + + + + | Estimated | >60Comment: GFR <60: | mL/min/1.73_m2 | EXTERNAL | | | GFR | CHRONIC KIDNEY DISEASE, | | LAB | | | | IF FOUND OVER A 3 MONTH | | | | | | PERIOD. GFR <15: KIDNEY | | | | | | FAILURE. FOR | | | | | | AMERICANS, MULTIPLY THE | | | | | | CALCULATED GFR BY 1.210. | | | | + + + [...]
--- OUTSIDE RECORDS SUMMARY | ~2019-09-03 | XMS | Encounter Summary ---
Demographics + + + | Address | [address] [facility] | | | [place] [address] | + + + | Home Phone | | + + + | Preferred Language | Unknown | + + + | Marital Status | Single | + + + | Voodoo Affiliation | Unknown | + + + | Race | Unknown | + + + | Ethnic Group | Unknown | + + + Author + + + | Author | [facility] | | | and [place] | + + + | Organization | [facility] | | | and [place] | + + + | Address | Unknown | + + + | Phone | Unavailable | + + + Care Team Providers + +------+ + | Care Cloth Picker Name | Role | Phone | + +------+ + | Grecia Miranda NP | PCP | | + +------+ + Encounter Details +--------+ + + + + | Date | Type | Department | Care Team | Description | +--------+ + + + + | 06/24/ | Orders Only | [facility] | Conversion | | | 2015 | | INFECTIOUS DISEASE | Transaction, | | | | | [address] [facility] | Provider Unknown | | | | | [place], [place] | [phone] | | | | | [address] | | | | | | [phone] | | | +--------+ + + + [...]
--- OUTSIDE RECORDS SUMMARY | ~2019-09-03 | XMS | Encounter Summary ---
Demographics + + + | Address | [address] [facility] | | | [place] [address] | + + + | Home Phone | | + + + | Preferred Language | Unknown | + + + | Marital Status | Single | + + + | Pentecostalism Affiliation | Unknown | + + + | Race | Unknown | + + + | Ethnic Group | Unknown | + + + Author + + + | Author | [facility] | | | and [place] | + + + | Organization | [facility] | | | and [place] | + + + | Address | Unknown | + + + | Phone | Unavailable | + + + Care Team Providers + +------+ + | Care Turn Out Worker Name | Role | Phone | + +------+ + | Grecia Miranda NP | PCP | | + +------+ + Encounter Details +--------+ + + + + | Date | Type | Department | Care Team | Description | +--------+ + + + + | 11/05/ | Hospital | [facility] | Conversion | | | 2016 | Encounter | [facility] | Transaction, | | | | | [facility] [address] | Provider Unknown | | | | | [address] [place], [place] | [phone] | | | | | [address] | | | | | | [phone] | Ted Jacinto, | | | | | | MD [address] | | | | | | [facility] [address] | | | | | | [place] [address] | | | | | | [phone] | | | | | | | [...] | | 0 | | | | [id number] | | | | | | | [...]
--- OUTSIDE RECORDS SUMMARY | ~2019-09-03 | XMS | Encounter Summary ---
Demographics + + + | Address | [address] [facility] | | | [place] [address] | + + + | Home Phone | | + + + | Preferred Language | Unknown | + + + | Marital Status | Single | + + + | Mandaen Affiliation | Unknown | + + + | Race | Unknown | + + + | Ethnic Group | Unknown | + + + Author + + + | Author | [facility] | | | and [place] | + + + | Organization | [facility] | | | and [place] | + + + | Address | Unknown | + + + | Phone | Unavailable | + + + Care Team Providers + +------+ + | Care Esthetics Instructor Name | Role | Phone | + +------+ + | Grecia Miranda NP | PCP | | + +------+ + Encounter Details +--------+ + + + + | Date | Type | Department | Care Team | Description | +--------+ + + + + | 05/14/ | Orders Only | [facility] | Conversion | | | 2015 | | INFECTIOUS DISEASE | Transaction, | | | | | [address] [facility] | Provider Unknown | | | | | [place], [place] | [phone] | | | | | [address] | | | | | | [phone] | | | +--------+ + + + [...] + + + | HIV-1 Ultra | 278[address] | Copies/mL | EXTERNAL | | | [...]
--- OUTSIDE RECORDS SUMMARY | ~2019-09-03 | XMS | Encounter Summary ---
Demographics + + + | Address | [address] [facility] | | | [place] [address] | + + + | Home Phone | | + + + | Preferred Language | Unknown | + + + | Marital Status | Single | + + + | Mu-Ism Affiliation | Unknown | + + + | Race | Unknown | + + + | Ethnic Group | Unknown | + + + Author + + + | Author | [facility] | | | and [place] | + + + | Organization | [facility] | | | and [place] | + + + | Address | Unknown | + + + | Phone | Unavailable | + + + Care Team Providers + +------+ + | Care Kitchen Operator Name | Role | Phone | + +------+ + | Grecia Miranda NP | PCP | | + +------+ + Encounter Details +--------+ + + + + | Date | Type | Department | Care Team | Description | +--------+ + + + + | 01/19/ | Orders Only | [facility] | Conversion | | | 2015 | | INFECTIOUS DISEASE | Transaction, | | | | | [address] [facility] | Provider Unknown | | | | | [place], [place] | [phone] | | | | | [address] | | | | | | [phone] | | | +--------+ + + + [...] | + +--------+ + + + | CK TOTAL | Routin | 01/20/2016 | | Results for this | | | e | 12:00 AM | | procedure are in the | | | | PDT | | results section. | + +--------+ + + + documented in this encounter Results CK Total (01/20/2016 12:00 AM PDT) + +-------+ + + + | Component | Value | Ref Range | Performed | Pathologist | | | | | At | Signature | + +-------+ + + + | CK, Total | 136 | 24 - 195 U/L | EXTERNAL | | | | [...]
--- OUTSIDE RECORDS SUMMARY | ~2019-09-03 | XMS | Encounter Summary ---
Demographics + + + | Address | [address] [facility] | | | [place] [address] | + + + | Home Phone [...] Author | [facility] | | | and [place] | + + + | Organization | [facility] | | | and [place] | + + + | Address | Unknown | + + + | Phone | Unavailable | + + + Care Team Providers + +------+ + | Care Profiling Machine Setup Operator Name | Role | Phone | + +------+ + | Grecia Miranda NP | PCP | | + +------+ + Encounter Details +--------+ + + + + | Date | Type | Department | Care Team | Description | +--------+ + + + + | 01/11/ | Orders Only | [facility] | Conversion | | | 2015 | | INFECTIOUS DISEASE | Transaction, | | | | | [address] [facility] | Provider Unknown | | | | | [place], [place] | [phone] | | | | | [address] | | | | | | [phone] | | | +--------+ + + + [...] + | CK TOTAL | Routin | 01/12/2016 | | Results for this | | | e | 12:00 AM | | procedure are in the | | | | PDT | | results section. | + +--------+ + + + documented in this encounter Results CK Total (01/12/2016 12:00 AM PDT) + +---------+ + + + | Component | Value | Ref Range | Performed | Pathologist | | | | | At | Signature | + +---------+ + + + | CK, Total | 199 (A) | 24 - 195 U/L | EXTERNAL [...]
--- OUTSIDE RECORDS SUMMARY | ~2019-09-03 | XMS | Clinical Summary ---
Demographics + + + | Address | [address] [facility] | | | [place] [address] | + + + | Home Phone | | + + + | Preferred Language | Unknown | + + + | Marital Status | Single | + + + | Mormonism Affiliation | Unknown | + + + | Race | Unknown | + + + | Ethnic Group | Unknown | + + + Author + + + | Author | [facility] (Historical as of | | | 04-07-19) | + + + | Organization | [facility] (Historical as of | | | 04-07-19) | + + + | Address | Unknown | + + + | Phone | Unavailable | + + + Support + + +---------+ + | Name | Relationship | Address | Phone | + + +---------+ + | No,Contact | ECON | Unknown | | + + +---------+ + Care Team Providers + +------+ + | Care Veneer Redrier Name | Role | Phone | + +------+ + | Malick Andrews MD | PP | | + +------+ + Allergies No Known Allergies Current Medications + + + +---------+------+------+-------+ | Prescription | Sig. | Disp. | Refills | Star | End | Statu | | | | | | t | Date | s | | | | | | Date | | | + + + +---------+------+------+-------+ | | Take 1 tablet by | | | | | Activ | | HYDROcodone-acetamin | mouth every 6 (six) | | | | | e | | ophen (NORCO) 5-325 | hours as needed. | | | | | | | MG per tablet | | | | | | | + + + +---------+------+------+-------+ | gabapentin | Take 300 mg by mouth | | | | | Activ | | (NEURONTIN) 300 MG | as needed. | | | | | e | | capsule | | | | | | | + + + +---------+------+------+-------+ | dicyclomine | Take 20 mg by mouth | | | | | Activ | | (BENTYL) 20 MG | every 6 (six) hours. | | | | | e | | tablet | | | | | | | + + + +---------+------+------+-------+ | PRAZOSIN HCL PO | Take 1 mg by mouth 2 | | | | | Activ | | | (two) times daily. | | | | | e | + + + +---------+------+------+-------+ | TRAZODONE HCL PO | Take 50 mg by mouth | | | | | Activ | | | nightly. | | | | | e | + + + +---------+------+------+-------+ | FLUOXETINE HCL PO | Take 20 mg by mouth | | | | | Activ | | | daily. | | | | | e | + + + +---------+------+------+-------+ | naproxen | Take 500 mg by mouth | | | | | Activ | | (NAPRELAN) 500 MG 24 | daily with | | | | | e | | hr tablet | breakfast. | | | | | | + + + +---------+------+------+-------+ | mirtazapine | Take 15 mg by mouth | | | | | Activ | | (REMERON) 15 MG | nightly. | | | | | e | | tablet | | | | | | | + + + +---------+------+------+-------+ | omeprazole | Take 1 capsule by | 60 | 3 | 08/3 | | Activ | | (PRILOSEC) 20 MG | mouth 2 (two) times | capsule | | 0/20 | | e | | capsule | daily before meals. | | | 17 | | | + + + +---------+------+------+-------+ | lactulose | Take 15 mLs by mouth | 1350 mL | 2 | 11/3 | | Activ | | (CHRONULAC) 10 | 2 (two) times | | | 0/20 | | e | | GM/15ML solution | daily. | | | 17 | | | + + + +---------+------+------+-------+ | | Take 1 tablet by | 30 | 11 | 03/2 | | Activ | | Emtricitabine-Tenofo | mouth daily. | tablet | | 8/20 | | e | | vir AF (DESCOVY) | | | | 18 | | | | 200-25 MG TABS | | | | | | | + + + +---------+------+------+-------+ | dolutegravir | Take 1 tablet by | 60 | 5 | 03/2 | | Activ | | sodium (TIVICAY) 50 | mouth 2 (two) times | tablet | | 8/20 | | e | | MG | daily. | | | 18 | | | | tabletIndications: | | | | | | | | Human | | | | | | | | Immunodeficiency | | | | | | | | Virus Disease | | | | | | | + + + +---------+------+------+-------+ | | Take 1 tablet by | 30 | 11 | 03/2 | | Activ | | sulfamethoxazole-tri | mouth daily. | tablet | | 8/20 | | e | | methoprim (BACTRIM) | | | | 18 | | | | 400-80 MG per tablet | | | | | | | + + + +---------+------+------+-------+ Active Problems + + + | Problem | Noted Date | + + + | Rectal pain | 07/21/2017 | + + + | Other constipation | 07/21/2017 | + + + | Generalized abdominal pain | 07/21/2017 | + + + | Noncompliance with medication regimen | 06/28/2017 | + + + | Gastritis, Helicobacter pylori | 04/20/2017 | + + + | Drug-induced constipation | 04/20/2017 | + + + | Lower abdominal pain | 04/20/2017 | + + + | Neck pain | 12/15/2016 | + + + | Pharyngoesophageal dysphagia | 10/22/2016 | + + + | Gastroesophageal reflux disease | 10/22/2016 | + + + | Depression | 12/15/2015 | + + + | Trigeminal neuralgia of left side of face | 09/11/2015 | + + + | HIV disease | 12/27/2013 | + + + + + | Overview: Date of HIV or AIDS diagnosis: 2007Lowest known | | CD4+ Count: Never below 200Documented Opportunistic infections: | | NoneDocumented Complications: NoneGenotype: No resistance | | April 2011, repeat genotype ordered December 2013Failed regimens: | | Atripla was poorly tolerated. 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 Genotype was subsequently ordered.RPR: Negative November | | 2013Toxoplasma IgG: Neg 01/2014Viral Hepatitis Serology: Hepatitis | | B core antibody positive November 2013, hep C antibody negative.TB | | Screening: Neg 01/2014 Last Assessment & Plan: The patient has | | only shown a partial response to his Complera, although I suspect | | that there has been only partial adherence to recommended | | therapy based on significant side effects. The patient recalls | | having similar side effects when taking Complera previously, so | | would not be appropriate to try to continue this regimen. He had | | tried Atripla in the past without similar side effects, | | suggesting that it is the rilpivirine component that is causing | | the problem. We will switch to Stribild when his current supply | | runs out, in approximately 4 weeks, with hope that this will be | | better tolerated and effective. We will follow-up in 2 months | | with repeat labs at that time to include CBC, CMP, CD4 count and | | viral load. I have also ordered CPK has this can be elevated on | | treatment with Stribild. | + + Family History + + +------+ + | Medical History | Relation | Name | Comments | + + +------+ + | Malig hypertherm | Neg Hx | | | + + +------+ + + +------+--------+ + | Relation | Name | Status | Comments | + +------+--------+ + | Father | | Alive | | + +------+--------+ + | Mother | | Alive | | + +------+--------+ + Social History + +-------+ +--------+------+ | Tobacco Use | Types | Packs/Day | Years | Date | | | | | Used | | + +-------+ +--------+------+ | Current Some Day | | | | | | Smoker | | | | | + +-------+ +--------+------+ + +---+---+---+ | Smokeless Tobacco: | | | | | Never Used | | | | + +---+---+---+ + + | Comments: CIGAR 2-3 TIMES WEEKLY FOR 4 YEARS. | + + + + +---------+ + | Alcohol Use | Drinks/We | oz/Week | Comments | | | ek | | | + + +---------+ + | No | | | | + + +---------+ + + + + | Sex Assigned at | Date Recorded | | | | + + + | Not on file | | + + + Last Filed Vital Signs + + + + | Vital Sign | Reading | Time Taken | + + + + | Blood Pressure | 135/93 | 11/16/2017 1:34 PM PDT | + + + + | Pulse | 65 | 11/16/2017 1:34 PM PDT | + + + + | Temperature | 36.8 C (98.3 F) | 11/16/2017 1:34 PM PDT | + + + + | Respiratory Rate | 16 | 11/16/2017 1:34 PM PDT | + + + + | Oxygen Saturation | 98% | 11/16/2017 1:34 PM PDT | + + + + | Inhaled Oxygen | - | - | | Concentration | | | + + + + | Weight | 76.7 kg (169 lb) | 11/16/2017 1:34 PM PDT | + + + + | Height | 190.5 cm (6' 3") | 08/10/2017 1:24 PM PST | + + + + | Body Mass Index | 21.12 | 11/16/2017 1:34 PM PDT | + + + + Plan of Treatment + + + + + | Health Maintenance | Due Date | Last Done | Comments | + + + + + | Vaccine: | | 12/29/2012 | | | Pneumococcal 19-64 | 4 | | | | Highest Risk (2 of 3 | | | | | - PCV13) | | | | + + + + + | Colon Cancer | | | | | Screening | 8 | | | | (Colonoscopy) | | | | + + + + + | Vaccine: Zoster (1 | | | | | of 2) | 8 | | | + + + + + | Vaccine: Influenza | | 12/29/2012 | | | (#1) | 9 | | | + + + + + | Vaccine: | | 12/29/2012 | | | Dtap/Tdap/Td (2 - | 3 | | | | Td) | | | | + + + + + Results Not on filefrom Last 3 Months Insurance + +--------+ +------+-------+ + | Payer | Benefi | Subscriber | Type | Phone | Address | | | t Plan | ID | | | | | | / | | | | | | | Group | | | | | + +--------+ +------+-------+ + | MEDICAID | [place] | [id number] | | | [address] | | | N | | | | [place] | | | [place] | | | | [phone] | | | [place] | | | | | + +--------+ +------+-------+ + + +--------+ +--------+ + + | Guarantor Name | Accoun | Relation to | Date | Phone | Billing Address | | | t Type | Patient | of | | | | | | | | | | + +--------+ +--------+ + + | STONE GREENE | Person | Self | [birth year] | Home: | [address] [facility] | | | al/Fam | | 1970 | [phone] [address] [place] | | | ayde | | | [phone] | + +--------+ +--------+ + + | LUCILLE GREENE | Person | Self | [birth year] | Home: | [facility] | | | al/Fam | | 1969 | +- | [address] [place] [address] | | | [place] | | | [phone] | + +--------+ +--------+ + +
--- OUTSIDE RECORDS SUMMARY | ~2019-09-03 | XMS | Encounter Summary ---
Demographics + + + | Address | [address] [facility] | | | [place] [address] | + + + | Home Phone | | + + + | Preferred Language | Unknown | + + + | Marital Status | Single | + + + | Sikhism Affiliation | Unknown | + + + | Race | Unknown | + + + | Ethnic Group | Unknown | + + + Author + + + | Author | [facility] | | | and [place] | + + + | Organization | [facility] | | | and [place] | + + + | Address | Unknown | + + + | Phone | Unavailable | + + + Care Team Providers + +------+ + | Care Liquid Waste Treatment Plant Operator Name | Role | Phone | + +------+ + | Grecia Miranda NP | PCP | | + +------+ + Encounter Details +--------+ + + + + | Date | Type | Department | Care Team | Description | +--------+ + + + + | 03/10/ | Orders Only | [facility] | Conversion | | | 2014 | | INFECTIOUS DISEASE | Transaction, | | | | | [address] [facility] | Provider Unknown | | | | | [place], [place] | [phone] | | | | | [address] | | | | | | [phone] | | | +--------+ + + + [...]
--- OUTSIDE RECORDS SUMMARY | ~2019-09-03 | XMS | Encounter Summary ---
Demographics + + + | Address | [address] [facility] | | | [place] [address] | + + + | Home Phone | | + + + | Preferred Language | Unknown | + + + | Marital Status | Single | + + + | Episcopal Affiliation | Unknown | + + + | Race | Unknown | + + + | Ethnic Group | Unknown | + + + Author + + + | Author | [facility] | | | and [place] | + + + | Organization | [facility] | | | and [place] | + + + | Address | Unknown | + + + | Phone | Unavailable | + + + Care Team Providers + +------+ + | Care Shipyard Laborer Name | Role | Phone | + +------+ + | Grecia Miranda NP | PCP | | + +------+ + Encounter Details +--------+ + + + + | Date | Type | Department | Care Team | Description | +--------+ + + + + | 06/08/ | Orders Only | [facility] | Conversion | | | 2016 | | INFECTIOUS DISEASE | Transaction, | | | | | [address] [facility] | Provider Unknown | | | | | [place], [place] | [phone] | | | | | [address] | | | | | | [phone] | | | +--------+ + + + [...] Notes by Daniella Edmonds MA at 06/08/17 [id number] Author: Daniella Edmonds MA Service: (none) Author Type: Triple Drum Operator Filed: 06/15/17 0953 Encounter Date: 06/08/2017 Status: Signed Rig Supervisor: Daniella Edmonds MA (Triple Drum Operator) Received Labs From [facility] From 06/08 (CBC,CMP, HIV Viral Load, [...] + + + | HIV-1 Ultra | [address] | | EXTERNAL | | | Viral [...]
--- OUTSIDE RECORDS SUMMARY | ~2019-09-03 | XMS | Encounter Summary ---
Demographics + + + | Address | [address] [facility] | | | [place] [address] | + + + | Home Phone | | + + + | Preferred Language | Unknown | + + + | Marital Status | Single | + + + | Yarsanism Affiliation | Unknown | + + + | Race | Unknown | + + + | Ethnic Group | Unknown | + + + Author + + + | Author | [facility] | | | and [place] | + + + | Organization | [facility] | | | and [place] | + + + | Address | Unknown | + + + | Phone | Unavailable | + + + Care Team Providers + +------+ + | Care Men'S Swim Coach Name | Role | Phone | + +------+ + | Grecia Miranda NP | PCP | | + +------+ + Encounter Details +--------+ + + + + | Date | Type | Department | Care Team | Description | +--------+ + + + + | 11/08/ | Emergency | [facility] | Tomasz Rizvi, | Weakness; | | 2016 | | MEDICAL [facility]ENTER | [address] | Hypokalemia | | | | EMERGENCY CENTER | [place] [address] | | | | | [address] | [phone] | | | | | [place], [place] | | | | | | [address] | | | | | | [phone] | | | +--------+ + + + [...] + + + | Blood Pressure | 125/80 | 11/08/2016 11:53 AM | | | | | PDT | | + + + + + | Pulse | 77 | 11/08/2016 11:53 AM | | | | | PDT | | + + + + + | Temperature | 36.7 C (98 F) | 11/08/2016 11:53 AM | | | | | PDT | | + + + + + | Respiratory Rate | 18 | 11/08/2016 11:53 AM | | | | | PDT | | + + + + + | Oxygen Saturation | - | - | | + + + + + | Inhaled Oxygen | - | - | | | Concentration | | | | + + + + + | Weight | 80 kg (176 lb 5.9 | 11/08/2016 11:53 AM | | | | oz) | PDT | | + + + + + | Height | - | - | | + + + + + | Body Mass Index | 22.04 | 11/05/2016 1:54 PM | | | [...] | | 0 | | | | Klfpnlw-Cdxlhrt-Qdds | | | | | | | [...] | EXTERNAL LAB: CBC | Routin | 11/08/2016 | | Results for this | | | e | 12:41 PM | | procedure are in the | | | | PDT | | results section. | + +--------+ + + + | COMPREHENSIVE | Routin | 11/08/2016 | | Results for this | | METABOLIC PANEL | e | 12:41 PM | | procedure are in the | | | | PDT | | results section. | + +--------+ + + + | ECG 12 LEAD | Routin | 11/08/2016 | | Results for this | | | e | 12:22 PM | | procedure are in the | | | | PDT | | results section. | + +--------+ + + + documented in this encounter Results External Lab: CBC (11/08/2016 12:41 PM PDT) + + + + + + | Component | Value | Ref Range | Performed | Pathologist | | | | | At | Signature | + + + + + + | WBC | 3.28 (L)Comment: Testing | 3.80 - 11.00 | EXTERNAL | | | | performed at [facility];[address] | K/uL | LAB | | | | [address];[place], [place] | | | | | | [address] | | | | + + + + + + | RED CELL | 4.72Comment: Testing | 4.20 - 5.70 | EXTERNAL | | | COUNT | performed at [facility];[address] | M/uL | LAB | | | | [address];[place] | | | | | | [address] | | | | + + + + + + | Hgb | 14.7Comment: Testing | 13.2 - 17.0 | EXTERNAL | | | | performed at [facility];888 | g/dL | LAB | | | | [address];[place] | | | | | | [address] | | | | + + + + + + | Hematocrit, | 42.3Comment: Testing | 39.0 - 50.0 % | EXTERNAL | | | POC | performed at [facility];[address] | | LAB | | | | [address];[place] | | | | | | [address] | | | | + + + + + + | MCV | 89.5Comment: Testing | 80.0 - 100.0 fl | EXTERNAL | | | | performed at [facility];[address] | | LAB | | | | [address];[place] | | | | | | [address] | | | | + + + + + + | MCH | 31.1Comment: Testing | 27.0 - 34.0 pg | EXTERNAL | | | | performed at [facility];[address] | | LAB | | | | [address];[place] | | | | | | [address] | | | | + + + + + + | MCHC | 34.7Comment: Testing | 32.0 - 35.5 | EXTERNAL | | | | performed at [facility];888 | g/dL | LAB | | | | [address];[place] | | | | | | [address] | | | | + + + + + + | RDW-CV | 43.8Comment: Testing | 37 - 53 fl | EXTERNAL | | | | performed at [facility];[address] | | LAB | | | | [address];[place] | | | | | | [address] | | | | + + + + + + | Platelet | 159Comment: Testing | 150 - 400 K/uL | EXTERNAL | | | Count | performed at [facility];[address] | | LAB | | | Plasma | [address];[place] | | | | | | [address] | | | | + + + + + + | MPV | 8.3Comment: Testing | fl | EXTERNAL | | | | performed at [facility];[address] | | LAB | | | | [address];[place] | | | | | | [address] | | | | + + + + + + | Differentia | AUTOMATEDComment: | | EXTERNAL | | | l Type | Testing performed at | | LAB | | | | [facility];[address];[place] [address] | | | | + + + + + + | % Segmented | 59.42Comment: Testing | % | EXTERNAL | | | | performed at [facility];[address] | | LAB | | | Neutrophils | [address];[place] | | | | | | [address] | | | | + + + + + + | % | 29.90Comment: Testing | % | EXTERNAL | | | Lymphocytes | performed at [facility];[address] | | LAB | | | | [address];[place] | | | | | | [address] | | | | + + + + + + | % Monocytes | 9.06Comment: Testing | % | EXTERNAL | | | | performed at [facility];[address] | | LAB | | | | [address];[place] | | | | | | [address] | | | | + + + + + + | % | 1.16Comment: Testing | % | EXTERNAL | | | Eosinophils | performed at [facility];[address] | | LAB | | | | [address];[place] | | | | | | [address] | | | | + + + + + + | % Basophils | 0.46Comment: Testing | % | EXTERNAL | | | | performed at [facility];[address] | | LAB | | | | [address];[place] | | | | | | [address] | | | | + + + + + + | Absolute | 1.95Comment: Testing | 1.90 - 7.40 | EXTERNAL | | | Segmented | performed at [facility];[address] | K/uL | LAB | | | Neutrophils | [address];[place] | | | | | | [address] | | | | + + + + + + | Absolute | 0.98 (L)Comment: Testing | 1.00 - 3.90 | EXTERNAL | | | Lymphocytes | performed at [facility];[address] | K/uL | LAB | | | | [address];[place] | | | | | | [address] | | | | + + + + + + | Absolute | 0.30Comment: Testing | 0.00 - 0.80 | EXTERNAL | | | Monocytes | performed at [facility];[address] | K/uL | LAB | | | | [address];[place] | | | | | | [address] | | | | + + + + + + | Absolute | 0.04Comment: Testing | 0.00 - 0.50 | EXTERNAL | | | Eosinophils | performed at [facility];[address] | K/uL | LAB | | | | [address];[place] | | | | | | [address] | | | | + + + + + + | Absolute | 0.02Comment: Testing | 0.00 - 0.10 | EXTERNAL | | | Basophils | performed at [facility];[address] | K/uL | LAB | | | | [address];[place] | | | | | | [address] | | | | + + + [...] + +---------+ + + Comprehensive Metabolic Panel (11/08/2016 12:41 PM PDT) + + + + + + | Component | Value | Ref Range | Performed | Pathologist | | | | | At | Signature | + + + + + + | Na | 143Comment: Testing | 135 - 145 | EXTERNAL | | | | performed at [facility];[address] | mmol/L | LAB | | | | [address];[place] | | | | | | [address] | | | | + + + + + + | K | 3.2 (L)Comment: Testing | 3.5 - 4.9 | EXTERNAL | | | | performed at [facility];888 | mmol/L | LAB | | | | [address];[place] | | | | | | [address] | | | | + + + + + + | Cl | 111 (H)Comment: Testing | 99 - 109 mmol/L | EXTERNAL | | | | performed at [facility];[address] | | LAB | | | | [address];[place] | | | | | | [address] | | | | + + + + + + | CO2 | 26Comment: Testing | 23 - 32 mmol/L | EXTERNAL | | | | performed at [facility];[address] | | LAB | | | | [address];[place] | | | | | | [address] | | | | + + + + + + | Anion Gap | 9Comment: Testing | 5 - 20 mmol/L | EXTERNAL | | | | performed at [facility];[address] | | LAB | | | | [address];[place] | | | | | | [address] | | | | + + + + + + | Glucose, | 112 (H)Comment: Testing | 65 - 99 mg/dL | EXTERNAL | | | Fasting | performed at [facility];[address] | | LAB | | | | [address];[place] | | | | | | [address] | | | | + + + + + + | BUN | 12Comment: Testing | 8 - 25 mg/dL | EXTERNAL | | | | performed at [facility];[address] | | LAB | | | | [address];[place] | | | | | | [address] | | | | + + + + + + | Creatinine | 0.85Comment: Testing | 0.70 - 1.30 | EXTERNAL | | | | performed at [facility];[address] | mg/dL | LAB | | | | [address];[place] | | | | | | [address] | | | | + + + + + + | BUN/Creatin | 14Comment: Testing | | EXTERNAL | | | ine Ratio | performed at [facility];[address] | | LAB | | | | [address];[place] | | | | | | [address] | | | | + + + + + + | Calcium | 8.5Comment: Testing | 8.5 - 10.5 | EXTERNAL | | | | performed at [facility];[address] | mg/dL | LAB | | | | [address];[place] | | | | | | [address] | | | | + + + + + + | Protein, | 8.2Comment: Testing | 6.3 - 8.2 g/dL | EXTERNAL | | | Total | performed at [facility];[address] | | LAB | | | | [address];[place] | | | | | | [address] | | | | + + + + + + | Albumin | 3.9Comment: Testing | 3.6 - 5.0 g/dL | EXTERNAL | | | | performed at [facility];[address] | | LAB | | | | [address];[place] | | | | | | [address] | | | | + + + + + + | Globulin | 4.3Comment: Testing | 1.3 - 4.9 g/dL | EXTERNAL | | | | performed at [facility];[address] | | LAB | | | | [address];[place] | | | | | | [address] | | | | + + + + + + | A/G Ratio | 0.9 (L)Comment: Testing | 1.0 - 2.4 | EXTERNAL | | | | performed at [facility];[address] | | LAB | | | | [address];[place] | | | | | | [address] | | | | + + + + + + | Bilirubin | 0.7Comment: Testing | 0.1 - 1.5 mg/dL | EXTERNAL | | | Total | performed at [facility];[address] | | LAB | | | | [address];[place] | | | | | | [address] | | | | + + + + + + | ALP, | 93Comment: Testing | 35 - 115 U/L | EXTERNAL | | | External | performed at [facility];[address] | | LAB | | | | [address];[place] | | | | | | [address] | | | | + + + + + + | AST | 20Comment: Testing | 10 - 45 U/L | EXTERNAL | | | | performed at [facility];[address] | | LAB | | | | [address];[place] | | | | | | [address] | | | | + + + + + + | ALT | 22Comment: Testing | 10 - 65 U/L | EXTERNAL | | | | performed at [facility];[address] | | LAB | | | | [address];[place] | | | | | | [address] | | | | + + + + + + | Estimated | >60Comment: GFR <60: | mL/min/1.73m2 | EXTERNAL | | | GFR | CHRONIC KIDNEY DISEASE, | | LAB | | | | IF FOUND OVER A 3 MONTH | | | | | | PERIOD.GFR <15: KIDNEY | | | | | | FAILURE.FOR | | | | | | AMERICANS, MULTIPLY THE | | | | | | CALCULATED GFR BY | | | | | | 1.210.Testing performed | | | | | | at [facility];[address];[place] [address] | | | | + + + + + + + + | Specimen | + + | Blood specimen | | (specimen) | + + + +---------+ + + | Performing | Address | City/State/Zipcode | Phone Number | | Organization | | | | + +---------+ + + | EXTERNAL LAB | | | | + +---------+ + + ECG 12 lead (11/08/2016 12:22 PM PDT) + + + + + + | Component | Value | Ref Range | Performed | Pathologist | | | | | At | Signature | + + + + + + | DIAGNOSIS: | Sinus rhythm with | | EXTERNAL | | | | Premature atrial | | LAB | | | | complexesOtherwise | | | | | | normal ECGNo previous | | | | | | ECGs availableThis ECG | | | | | | contains Unconfirmed | | | | | | Interpretation | | | | | | Statements. See ED | | | | | | Record for Physician | | | | | | Interpretation. | | | | | | Confirmed by MUSE READ | | | | | | ONLY, -COMPUTER ([id number]), | | | | | | editor index Dajuan Aldana | | | | | | Ananda ([id number]) on 11/08/2016 | | | | | | 9:01:07 PM | | | | + + + + + + + + | Specimen | + + | | + + + + + | Narrative | Performed At | + + + | Historically converted procedure from [facility] | EXTERNAL LAB | + + + + +---------+ + + | Performing | Address | City/State/Zipcode | Phone Number | | Organization | | | | + +---------+ + + | EXTERNAL LAB | | | | + +---------+ + + documented in this encounter Visit Diagnoses + + | Diagnosis | + + | Weakness Other malaise and fatigue | + + | Hypokalemia Hypopotassemia | + + documented in this encounter"
--- OUTSIDE RECORDS SUMMARY | ~2019-09-03 | XMS | Encounter Summary ---
Demographics + + + | Address | [address] [facility] | | | [place] [address] | + + + | Home Phone | | + + + | Preferred Language | Unknown | + + + | Marital Status | Single | + + + | Gnosticism Affiliation | Unknown | + + + | Race | Unknown | + + + | Ethnic Group | Unknown | + + + Author + + + | Author | [facility] | | | and [place] | + + + | Organization | [facility] | | | and [place] | + + + | Address | Unknown | + + + | Phone | Unavailable | + + + Care Team Providers + +------+ + | Care Fish Straightener Name | Role | Phone | + +------+ + | Grecia Miranda NP | PCP | | + +------+ + Encounter Details +--------+ + + + + | Date | Type | Department | Care Team | Description | +--------+ + + + + | 11/08/ | Hospital | [facility] | Ted Jacinto | Pharyngoesophageal | | 2017 | [facility] | [facility] | MD Madyson [address] | dysphagia | | | | INTRA OP [address] | [address] | | | | | [place], [place] | [place] [address] | | | | | [address] | [phone] | | | | | [phone] | | | +--------+ + + + [...] | | 0 | | | | Psgckqb-Isyxltu-Cvix | | | | | | | [...] 11/08/167 Date of Service: 11/08/161214 Status: Signed Chemist Physical: Sophia Gonzalez RN (Registered Nurse) 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 onver maggy Transaction, Provider Unknown - 11/08/2016 11:45 AM PDT Nurse Progress Note by Liliana Escamilla RN at 11/08/16 1145 Author: Liliana Escamilla RN Service: (none) Author Type: Registered Nurse Filed: 11/08/16 1244 Date of Service: 11/08/161144 Status: Signed Chemist Physical: Liliana Escamilla RN (Registered Nurse) Pt arrived [...]
--- OUTSIDE RECORDS SUMMARY | ~2019-09-03 | XMS | Encounter Summary ---
Demographics + + + | Address | [address] [facility] | | | [place] [address] | + + + | Home Phone | | + + + | Preferred Language | Unknown | + + + | Marital Status | Single | + + + | Confucianist Affiliation | Unknown | + + + | Race | Unknown | + + + | Ethnic Group | Unknown | + + + Author + + + | Author | [facility] | | | and [place] | + + + | Organization | [facility] | | | and [place] | + + + | Address | Unknown | + + + | Phone | Unavailable | + + + Care Team Providers + +------+ + | Care Electronic Typesetting Machine Operator Name | Role | Phone | + +------+ + | Ruben Shin MD | PCP | | + +------+ + Reason for Visit + + + | Reason | Comments | + + + | Appointment | Received referral from Dr. Shin's office. | + + + Encounter Details +--------+ + + + + | Date | Type | Department | Care Team | Description | +--------+ + + + + | 07/17/ | Telephone | [facility] | Escobar Muir, | Appointment | | 2011 | | SURGERY [address] | [address], | (Received referral | | | | [place], [place] | [facility] [address], | from Dr. Shin's | | | | [address] | [place] [address] | office.) | | | | [phone] | [phone] | | | | | | | [...]
--- OUTSIDE RECORDS SUMMARY | ~2019-09-03 | XMS | Encounter Summary ---
Demographics + + + | Address | [address] [facility] | | | [place] [address] | + + + | Home Phone | | + + + | Preferred Language | Unknown | + + + | Marital Status | Single | + + + | Synagogue Affiliation | Unknown | + + + | Race | Unknown | + + + | Ethnic Group | Unknown | + + + Author + + + | Author | [facility] | | | and [place] | + + + | Organization | [facility] | | | and [place] | + + + | Address | Unknown | + + + | Phone | Unavailable | + + + Care Team Providers + +------+ + | Care Security Ambassador Name | Role | Phone | + +------+ + | Grecia Miranda NP | PCP | | + +------+ + Encounter Details +--------+ + + + + | Date | Type | Department | Care Team | Description | +--------+ + + + + | 01/11/ | Orders Only | [facility] | Conversion | | | 2015 | | INFECTIOUS DISEASE | Transaction, | | | | | [address] [facility] | Provider Unknown | | | | | [place], [place] | [phone] | | | | | [address] | | | | | | [phone] | | | +--------+ + + + [...]
--- OUTSIDE RECORDS SUMMARY | ~2019-09-03 | XMS | Encounter Summary ---
Demographics + + + | Address | [address] [facility] | | | [place] [address] | + + + | Home Phone | | + + + | Preferred Language | Unknown | + + + | Marital Status | Single | + + + | Christian Affiliation | Unknown | + + + | Race | Unknown | + + + | Ethnic Group | Unknown | + + + Author + + + | Author | [facility] | | | and [place] | + + + | Organization | [facility] | | | and [place] | + + + | Address | Unknown | + + + | Phone | Unavailable | + + + Care Team Providers + +------+ + | Care Outdoor Education Teacher Name | Role | Phone | + +------+ + | Grecia Miranda NP | PCP | | + +------+ + Encounter Details +--------+ + + + + | Date | Type | Department | Care Team | Description | +--------+ + + + + | 01/03/ | Orders Only | [facility] | Conversion | | | 2016 | | INFECTIOUS DISEASE | Transaction, | | | | | [address] [facility] | Provider Unknown | | | | | [place], [place] | [phone] | | | | | [address] | | | | | | [phone] | | | +--------+ + + + [...] | EXTERNAL LAB: CBC | Routin | 01/03/2017 | | Results for this | | | e | 12:00 AM | | procedure are in the | | | | PDT | | results section. | + +--------+ + + + | HIV RNA, | Routin | 01/03/2017 | | Results for this | | QUANTITATIVE, PCR | e | 12:00 AM | | procedure are in the | | | | PDT | | results section. | + +--------+ + + + | CD4 T CELL PANEL | Routin | 01/03/2017 | | Results for this | | | e | 12:00 AM | | procedure are in the | | | | PDT | | results section. | + +--------+ + + + | COMPREHENSIVE | Routin | 01/03/2017 | | Results for this | | METABOLIC PANEL | e | 12:00 AM | | procedure are in the | | | | PDT | | results section. | + +--------+ + + + documented in this encounter Results HIV RNA, quantitative, PCR (01/03/2017 12:00 AM PDT) + + + + + + | Component | Value | Ref Range | Performed | Pathologist | | | | | At | Signature | + + + + + + | HIV-1 Ultra | 54332 (A) | 0 - 1 | EXTERNAL | | | Viral Load | | | LAB | | + + + + + + | HIV-1 Ultra | 4.31 (A) | 0 - 1 | EXTERNAL | | | Log | [...] +---------+ + + CD4 T Cell Panel (01/03/2017 12:00 AM PDT) + +---------+ + + [...] +---------+ + + + | CD4 | 133 (A) | 430 - 1800 | EXTERNAL [...] + +---------+ + + External Lab: CBC (01/03/2017 12:00 AM PDT) + + + + + + | Component | Value | Ref Range | Performed | Pathologist | | | | | At | Signature | + + + + + + | WBC | 4.1 (A) | 4.5 - 11.0 10 | EXTERNAL | | | | | | LAB | | + + + + + + | RED CELL | 4.41 | 10 | EXTERNAL | | | COUNT | | | LAB | | + + + + + + | Hgb | 13.8 | g/dL | EXTERNAL | | | | | | LAB | | + + + + + + | Hematocrit, | 40.5 (A) | 41 - 50 % | EXTERNAL | | | POC | | | LAB | | + + + + + + | MCV | 91.7 | fL | EXTERNAL | | | [...] + + + + | Platelet | 197 | K/ L | EXTERNAL | | | Count | | | LAB | | | Plasma | | | | | + + + + + + | RDW-CV | 15.6 (A) | 10.5 - 15.0 % | [...] + + + | % Segmented | 62.4 | % | EXTERNAL | | | | | | LAB | | | Neutrophils | | | | | + + + + + + | % | 25.6 | % | EXTERNAL | | | Lymphocytes | | | LAB | | + + + + + + | % Monocytes | 9.1 | % | EXTERNAL | | | | | | LAB | | + + + + + + | % | 2.4 | % | EXTERNAL | | | [...] + +---------+ + + Comprehensive Metabolic Panel (01/03/2017 12:00 AM PDT) + +-------+ + + + | Component | Value | Ref Range | Performed | Pathologist | | | | | At | Signature | + +-------+ + + + | Glucose, | 80 | mg/dL | EXTERNAL | | | Fasting | | | LAB | | + +-------+ + + + | BUN | 14 | mg/dL | EXTERNAL | | | | | | LAB | | + +-------+ + + + | Creatinine | 0.90 | mg/dL | EXTERNAL | | | | | | LAB | | + +-------+ + + + | BUN/Creatin | 15.6 | | EXTERNAL | | | ine Ratio | | | LAB | | + +-------+ + + + | Calcium | 9.1 | mg/dL | EXTERNAL | | | | | | LAB | | + +-------+ + + + | Protein, | 7.7 | g/dL | EXTERNAL | | | Total | | | LAB | | + +-------+ + + + | Albumin | 4.2 | | EXTERNAL | | | | | | LAB | | + +-------+ + + + | Globulin | 3.5 | | EXTERNAL | | | | | | LAB | | + +-------+ + + + | A/G Ratio | 1.2 | | EXTERNAL | | | | | | LAB | | + +-------+ + + + | Bilirubin | 1.0 | mg/dL | EXTERNAL | | | Total | | | LAB | | + +-------+ + + + | ALP, | 87 | | EXTERNAL | | | External [...] +-------+ + + + | Na | 141 | mmol/L | EXTERNAL | | | | | | LAB | | + +-------+ + + + | K | 3.6 | mmol/L | EXTERNAL | | | | | | LAB | | + +-------+ + + + | Cl | 109 | mmol/L | EXTERNAL | | | | | | LAB | | + +-------+ + + + | CO2 | 20 | mmol/L | EXTERNAL | | | | | | LAB | | + +-------+ + + + | Anion Gap | 15.6 | mmol/L | EXTERNAL | | | | | | LAB | | + +-------+ + + + | Estimated | 90 | mg/dL | EXTERNAL | [...]
--- OUTSIDE RECORDS SUMMARY | ~2019-09-03 | XMS | Encounter Summary ---
Demographics + + + | Address | [address] [facility] | | | [place] [address] | + + + | Home Phone | | + + + | Preferred Language | Unknown | + + + | Marital Status | Single | + + + | Amish Affiliation | Unknown | + + + | Race | Unknown | + + + | Ethnic Group | Unknown | + + + Author + + + | Author | [facility] | | | and [place] | + + + | Organization | [facility] | | | and [place] | + + + | Address | Unknown | + + + | Phone | Unavailable | + + + Care Team Providers + +------+ + | Care Freight Forwarder Name | Role | Phone | + +------+ + | Malick Andrews MD | PCP | | + +------+ + Encounter Details +--------+ + + + + | Date | Type | Department | Care Team | Description | +--------+ + + + + | 05/31/ | Abstract | [facility] | Nahum Suero | | | 2013 | | NEUROLOGY ALAINA Hoyt MD Need updated | | | | | [address] [facility], | address | | | | | [place] [address] [address] | | | | | | [place] [address] | | | | | | [phone] | | | +--------+ + + + [...]
--- OUTSIDE RECORDS SUMMARY | ~2019-09-03 | XMS | Encounter Summary ---
Demographics + + + | Address | [address] [facility] | | | [place] [address] | + + + | Home Phone | | + + + | Preferred Language | Unknown | + + + | Marital Status | Single | + + + | Orthodoxy Affiliation | Unknown | + + + | Race | Unknown | + + + | Ethnic Group | Unknown | + + + Author + + + | Author | [facility] | | | and [place] | + + + | Organization | [facility] | | | and [place] | + + + | Address | Unknown | + + + | Phone | Unavailable | + + + Care Team Providers + +------+ + | Care Planting Material Unloader Name | Role | Phone | + [...] Neuropathic | Nahum Hoyt, | [address] | | | | | pain | MD Need | [place], | | | | | 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 | [place] | | | | | Procedures | address | [address] | | | | | MRI Brain | | Phone: | | | | | w wo | | [phone] | | | | | Contrast | | Fax: | | | | | | | [phone] | +--------+--------+ + + + + Reason [...] | | | | side | [place] [address] | | | | | | | Phone: | | | | | | | [phone] | | | | | | | Fax: | | | | | | | [phone] | | +--------+--------+ + + + + Encounter Details +--------+---------+ + + + | Date | Type | Department | Care Team | Description | +--------+---------+ + + + | 06/10/ | Office | [facility] | Nahum Suero | Neuropathic pain | | 2013 | Visit | NEUROLOGY [facility] | MD Evelina Need updated | (Primary Dx); Alexandrea | | | | [address] [facility], | address | palsy | | | | [address] [place] | | | | | | [place] [address] | | | | | | [phone] | | | +--------+---------+ + + + [...] information carefully each time. Talk to your mantel craftsman regarding the use of this medicine in [...] this medicine? Visit your doctor or health patient care manager for regular checks on your progress. You may want to keep a record at home of how you feel your condition is responding to treatment. You may want to share this information with your doctor or health patient care manager at each vis it. You should contact your doctor or health patient care manager if your seizures get worse or if you have any new types of seizures. Do not stop taking this medicine or any of your seiz ure medicines unless instructed by your doctor or health patient care manager. Stopping your me dicine suddenly can increase [...] dying should be reported to your health patient care manager right away. Women who become while using this medicine may enroll in the [place]ie[place]ptic Drug Registry by calling . This registry collects informatio n about the safety of antiepileptic drug use during . What side effects may I notice from receiving this medicine? Side effects that you should report to your doctor or health patient care manager as soon as p ossible: allergic reactions like skin rash, itching or hives, swelling of the face, lips, or tong ue worsening of mood, thoughts or actions of suicide or dying Side effects that usually do not require medical attention (report to your doctor or health patient care manager if they continue or are bothersome): constipation difficulty walking or controlling muscle movements dizziness nausea slurred speech tiredness tremors weight gain This list may not describe all possible side effects. Call your doctor for medical advice a bout side effects. You may report side effects to FDA at 6-560-INJ-1088. Where should I keep my medicine? Keep [...] from the original. Nahum Suero MD [address] [facility], [address] [place] [address] Neurology Outpatient New Patient Note Referring Provider: Malick Andrews MD [address] [place] [address] Chief Complaint: Chief Complaint Patient presents with [...] Mr. Greene went to the ED in [place] where he reportedly underwent a CT a [...] or clumsiness. 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 He has [...] past surgical history. Current Medications: Current Medications Lujlyro-Xxrwolw-Fitlsevh-Tenof (STRIBILD PO) (Taking) Take by mouth. ooarmuufrz-qdqaxlsm-sljoroqcu (COMPLERA) 200-25-300 mg Take 1 tablet by [...] 20.50 kg/m 2 Neck Circumference: 14 3/8" [place] Sleepiness Scale: 6 General: well developed and [...] MRI imaging and reports from hospital in [facility]. - Initiate gabapentin 300 mg qhs with titration to 600 mg qhs for neuropathic pain. - Discussed side effects including fogginess, sleepiness, weight gain. 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 - Patient will ask PCP about local referral to lithograph press operator tinware if stinging continues. 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
--- OUTSIDE RECORDS SUMMARY | ~2019-09-03 | XMS | Encounter Summary ---
Demographics + + + | Address | [address] [facility] | | | [place] [address] | + + + | Home Phone | | + + + | Preferred Language | Unknown | + + + | Marital Status | Single | + + + | Latter Day Affiliation | Unknown | + + + | Race | Unknown | + + + | Ethnic Group | Unknown | + + + Author + + + | Author | [facility] | | | and [place] | + + + | Organization | [facility] | | | and [place] | + + + | Address | Unknown | + + + | Phone | Unavailable | + + + Care Team Providers + +------+ + | Care Cnc Mill Set Up Operator Name | Role | Phone | + +------+ + | Grecia Miranda NP | PCP | | + +------+ + Encounter Details +--------+ + + + + | Date | Type | Department | Care Team | Description | +--------+ + + + + | 01/03/ | Orders Only | [facility] | Conversion | | | 2016 | | INFECTIOUS DISEASE | Transaction, | | | | | [address] [facility] | Provider Unknown | | | | | [place], [place] | [phone] | | | | | [address] | | | | | | [phone] | | | +--------+ + + + [...] + + + | HIV-1 Ultra | 37134 (A) | 0 - 1 | EXTERNAL [...]
--- OUTSIDE RECORDS SUMMARY | ~2019-09-03 | XMS | Encounter Summary ---
Demographics + + + | Address | [address] [facility] | | | [place] [address] | + + + | Home Phone [...] | Author | [facility] | | | and [place] | + + + | Organization | [facility] | | | and [place] | + + + | Address | Unknown | + + + | Phone | Unavailable | + + + Care Team Providers + +------+ + | Care Bread Distributor Name | Role | Phone | + [...] | | [address] | [address] [facility] | | | | | [place], [place] | [place] [address] | | | | | [address] | [phone] | | | | | [phone] | | | +--------+ + + + [...]
--- OUTSIDE RECORDS SUMMARY | ~2019-09-03 | XMS | Encounter Summary ---
Demographics + + + | Address | [address] [facility] | | | [place] [address] | + + + | Home Phone | | + + + | Preferred Language | Unknown | + + + | Marital Status | Single | + + + | Adventist Affiliation | Unknown | + + + | Race | Unknown | + + + | Ethnic Group | Unknown | + + + Author + + + | Author | [facility] | | | and [place] | + + + | Organization | [facility] | | | and [place] | + + + | Address | Unknown | + + + | Phone | Unavailable | + + + Care Team Providers + +------+ + | Care Meters Superintendent Name | Role | Phone | + [...] + + | 07/17/ | Telephone | [facility] | Escobar Muir, | Appointment | | 2011 | | SURGERY [address] | [address], | (Received referral | | | | [place], [place] | [facility] [address], | from Dr. Shin's | | | | [address] | [place] [address] | office.) | | | | [phone] | [phone] | | | | | | | [...]
--- OUTSIDE RECORDS SUMMARY | ~2019-09-03 | XMS | Encounter Summary ---
Demographics + + + | Address | [address] [facility] | | | [place] [address] | + + + | Home Phone | | + + + | Preferred Language | Unknown | + + + | Marital Status | Single | + + + | Uatsdin Affiliation | Unknown | + + + | Race | Unknown | + + + | Ethnic Group | Unknown | + + + Author + + + | Author | [facility] | | | and [place] | + + + | Organization | [facility] | | | and [place] | + + + | Address | Unknown | + + + | Phone | Unavailable | + + + Care Team Providers + +------+ + | Care Paid Search Manager Name | Role | Phone | + +------+ + | Ruben Shin MD | PCP | | + +------+ + Encounter Details +--------+ + + + + | Date | Type | Department | Care Team | Description | +--------+ + + + + | 07/25/ | Abstract | [facility] | Juan J Shin, | | | 2011 | | SURGERY [address] | [address] | | | | | [place], [place] | [place], [place] | | | | | [address] | [id number] | | | | | [phone] | | | +--------+ + + + [...]
--- OUTSIDE RECORDS SUMMARY | ~2019-09-03 | XMS | Clinical Summary ---
Demographics + + + | Address | [address] [facility] | | | [place] [address] | + + + | Home Phone | | + + + | Preferred Language | Unknown | + + + | Marital Status | Single | + + + | Roman Catholic Affiliation | Unknown | + + + [...] Team Providers + +------+ + | Care Secondary Art Teacher Name | Role | Phone | + +------+ + | Grecia Miranda NP | PCP | | + +------+ + Allergies No Known Allergies Medications + + + +---------+------+------+-------+ | Medication | Sig | Dispensed | Refills | Star | End | Statu | | | | | | t | Date | s | | | | | | Date | | | + + + +---------+------+------+-------+ | | Take 1 tablet by | | 0 | | | Activ | | emtricitab-rilpivir- | mouth Daily. Take | | | | | e | | tenofovir (COMPLERA) | with a meal. | | | | | | | 200-25-300 mg | | | | | | | + + + +---------+------+------+-------+ | | Take by mouth. | | 0 | | | Activ | | Fwzzxvt-Qfrbznw-Zhrl | | | | | | e | | icit-Tenof (STRIBILD | | | | | | | | PO) | | | | | | | + + + +---------+------+------+-------+ | HYDROCORTISONE PO | Take by mouth. | | 0 | | | Activ | | | | | | | | e | + + + +---------+------+------+-------+ | OMEPRAZOLE PO | Take 40 mg by mouth | | 0 | | | Activ | | | Daily. | | | | | e | + + + +---------+------+------+-------+ | gabapentin | Take 1 capsule by | 60 | 2 | 12/0 | | Activ | | (NEURONTIN) 300 mg | mouth 2 times daily. | capsule | | 8/20 | | e | | capsuleIndications: | | | | 14 | | | | Neuropathic pain | | | | | | | + + + +---------+------+------+-------+ | RANITIDINE HCL PO | Take 15 mg by mouth | | 0 | | | Activ | | | Daily. | | | | | e | + + + +---------+------+------+-------+ | dicyclomine | Take 20 mg by mouth. | | 0 | | | Activ | | (BENTYL) 20 MG | | | | | | e | | tablet | | | | | | | + + + +---------+------+------+-------+ | QUEtiapine | Take 150 mg by mouth | | 0 | | | Activ | | Fumarate (SEROQUEL | 3 times daily. | | | | | e | | PO) | | | | | | | + + + +---------+------+------+-------+ | dolutegravir | Take 1 tablet by | | 0 | 03/2 | | Activ | | (TIVICAY) 50 mg | mouth 2 times daily. | | | 8/20 | | e | | tablet | | | | 18 | | | + + + +---------+------+------+-------+ | | Take 1 tablet by | | 0 | 03/2 | | Activ | | emtricitabine-tenofo | mouth Daily. | | | 820 | | e | | vir alafenamide | | | | 18 | | | | (DESCOVY) 200-25 mg | | | | | | | | per tablet | | | | | | | + + + +---------+------+------+-------+ | | Take 1 tablet by | | 0 | | | Activ | | HYDROcodone-acetamin | mouth every 6 hours | | | | | e | | ophen (NORCO) 5-325 | as needed. | | | | | | | mg per tablet | | | | | | | + + + +---------+------+------+-------+ | lactulose 10 g/15 | Take 15 mLs by mouth | | 0 | 11/3 | | Activ | | mL solution | 2 times daily. | | | 0/20 | | e | | | | | | 17 | | | + + + +---------+------+------+-------+ | mirtazapine | Take 15 mg by mouth | | 0 | | | Activ | | (REMERON) 15 MG | nightly. | | | | | e | | tablet | | | | | | | + + + +---------+------+------+-------+ | naproxen | Take 500 mg by mouth | | 0 | | | Activ | | (NAPRELAN) 500 MG 24 | daily (with | | | | | e | | hr tablet | breakfast). | | | | | | + + + +---------+------+------+-------+ | | Take 1 tablet by | | 0 | 03/2 | | Activ | | sulfamethoxazole-tri | mouth Daily. | | | 8/20 | | e | | methoprim | | | | 18 | | | | (BACTRIM,SEPTRA) | | | | | | | | 400-80 MG per tablet | | | | | | | + + + +---------+------+------+-------+ | gabapentin | Take 300 mg by mouth | | 0 | | | Activ | | (NEURONTIN) 300 mg | as needed. | | | | | e | | capsule | | | | | | | + + + +---------+------+------+-------+ | omeprazole | Take 1 capsule by | | 0 | 08/3 | | Activ | | (PRILOSEC) 20 mg | mouth 2 (two) times | | | 0/20 | | e | | capsule | daily before meals. | | | 17 | | | + + + +---------+------+------+-------+ | FLUOXETINE HCL PO | Take 20 mg by mouth | | 0 | | | Activ | | | Daily. | | | | | e | + + + +---------+------+------+-------+ | PRAZOSIN HCL PO | Take 1 mg by mouth 2 | | 0 | | | Activ | | | times daily. | | | | | e | + + + +---------+------+------+-------+ | TRAZODONE HCL PO | Take 50 mg by mouth | | 0 | | | Activ | | | nightly. | | | | | e | + + + +---------+------+------+-------+ Active Problems + + + | Problem | Noted Date | + + + | Other constipation | 07/21/2017 | + + + | Generalized abdominal pain | 07/21/2017 | + + + | Rectal pain | 07/21/2017 | + + + | Noncompliance with medication regimen | 06/28/2017 | + + + | Gastritis, Helicobacter pylori | 04/20/2017 | + + + | Neck pain | 12/15/2016 | + + + | Gastroesophageal reflux disease | 10/22/2016 | + + + | Pharyngoesophageal dysphagia [...] C antibody negative.TB | | Screening: Neg 01/2014Last Assessment & Plan: The patient has only | | shown a partial response to his Complera, although I suspect | | that there has been only partial adherence to recommended therapy | | based on significant side effects. The patient recalls having | | similar side effects when taking Complera previously, so would | | not be appropriate to try to continue this regimen. He had tried | | Atripla in the past without similar side effects, suggesting | | that it is the rilpivirine component that is causing the problem. | | We will switch to Stribild when his current supply runs out, in | | approximately 4 weeks, with hope that this will be better | | tolerated and effective. We will follow-up in 2 months with | | repeat labs at that time to include CBC, CMP, CD4 count and viral | | load. I have also ordered CPK has [...] | | + + +------+ + | Malig hypertherm | Neg Hx | | | + + +------+ + + +------+--------+ + | Relation | Name | Status | Comments | + +------+--------+ + | Father | | Alive | | + +------+--------+ + | Father | [...] recent travel history available. | + + Last Filed Vital Signs + + + + + | Vital Sign | Reading | Time Taken | Comments | + + + + + | Blood Pressure | 135/93 | 11/16/2017 1:38 PM | | | | | PDT | | + + + + + | Pulse | 65 | 11/16/2017 1:38 PM | | | | | PDT | | + + + + + | Temperature | 36.8 C (98.3 F) | 11/16/2017 1:38 PM | | | | | PDT | | + + + + + | Respiratory Rate | 16 | 11/16/2017 1:38 PM | | | | | PDT | | + + + + + | Oxygen Saturation | 100% | 11/15/2012 9:39 AM | | | | | PDT | | + + + + + | Inhaled Oxygen | - | - | | | Concentration | | | | + + + + + | Weight | 76.7 kg (169 lb) | 11/16/2017 1:38 PM | | | | | PDT | | + + + + + | Height | 190.5 cm (6' 3") | 08/10/2017 1:31 PM | | | | | PST | | + + + + + | Body Mass Index | 21.12 | 08/10/2017 1:31 PM | | | | | PST | | + + + + + Plan of Treatment + + + + + | Health Maintenance | Due Date | Last Done | Comments | + + + + + | Vaccine: | | | | | Pneumococcal 19-64 | 4 | | | | (1 of 3 - PCV13) | | | | + + + + + | Vaccine: | | | | | Dtap/Tdap/Td (1 - | 9 | | | | Tdap) | | | | + + + + + | Colorectal Cancer | | | | | Screening | 8 | | | | (Colonoscopy) | | | | + + + + + | Vaccine: Zoster (1 | | | | | of 2) | 8 | | | + + + + + | Vaccine: Influenza | | | | | (#1) | 9 | | | + + + + + Results Not on filefrom Last 3 Months Insurance + +--------+ +--------+ +---------+--------+ | Payer | Benefi | Subscriber | Effect | Phone | Address | Type | | | t Plan | ID | willi | | | | | | / | | Dates | | | | | | Group | | | | | | + +--------+ +--------+ +---------+--------+ | [employer] | [employer] | [id number] | 08/22/19 | [phone] | | Medica | | MEDICAID HMO | HEALTH | | 14-Pre | 1 | | id | | | MDCD | | sent | | | | | | HMO [place] | | | | | | + +--------+ +--------+ +---------+--------+ + +--------+ +--------+ + + | Guarantor Name | Accoun | Relation to | Date | Phone | Billing Address | | | t Type | Patient | of | | | | | | | | | | + +--------+ +--------+ + + | Stone Greene | Person | Self | [birth year] | [address] | | | al/Fam | | 1970 | [phone] | [place] [address] | | | ayde | | | 5 (Home) | | + +--------+ +--------+ + + Advance Directives + + + + + | Type | Date Recorded | Patient | Explanation | | | | Friction Paint Machine Tender | | + + + + + | Power of | | | | | Judo Teacher | | | | + + + + + | Advance | | | | | Directive | | | | + + + + +
--- OUTSIDE RECORDS SUMMARY | ~2019-09-03 | XMS | Encounter Summary ---
Demographics + + + | Address | [address] [facility] | | | [place] [address] | + + + | Home Phone | | + + + | Preferred Language | Unknown | + + + | Marital Status | Single | + + + | Church Affiliation | Unknown | + + + | Race | Unknown | + + + | Ethnic Group | Unknown | + + + Author + + + | Author | [facility] | | | and [place] | + + + | Organization | [facility] | | | and [place] | + + + | Address | Unknown | + + + | Phone | Unavailable | + + + Care Team Providers + +------+ + | Care Zoo Director Name | Role | Phone | + +------+ + | Ruben Shin MD | PCP | | + +------+ + Reason for Visit + + + | Reason | Comments | + + + | Appointment | Patient called wanting to schedule surgery | + + + Encounter Details +--------+ + + + + | Date | Type | Department | Care Team | Description | +--------+ + + + + | 09/21/ | Telephone | [facility] | Escobar Muir, | Appointment (Patient | | 2012 | | SURGERY [address] | [address], | called wanting to | | | | [place], [place] | [address], | schedule surgery) | | | | [address] | [place] [address] | | | | | [phone] | [phone] | | | | | | | [...]
--- OUTSIDE RECORDS SUMMARY | ~2019-09-03 | XMS | Encounter Summary ---
Demographics + + + | Address | [address] [facility] | | | [place] [address] | + + + | Home Phone | | + + + | Preferred Language | Unknown | + + + | Marital Status | Single | + + + | Mormon Affiliation | Unknown | + + + | Race | Unknown | + + + | Ethnic Group | Unknown | + + + Author + + + | Author | [facility] | | | and [place] | + + + | Organization | [facility] | | | and [place] | + + + | Address | Unknown | + + + | Phone | Unavailable | + + + Care Team Providers + +------+ + | Care Drapery Hemmer Automatic Name | Role | Phone | + +------+ + | Grecia Miranda NP | PCP | | + +------+ + Encounter Details +--------+ + + + + | Date | Type | Department | Care Team | Description | +--------+ + + + + | 11/08/ | Emergency | [facility] | Tomasz Rizvi, | Weakness; | | 2016 | | MEDICAL CENTER | [address] | Hypokalemia | | | | EMERGENCY CENTER | [place] [address] | | | | | [address] | [phone] | | | | | [place], [place] | | | | | | [address] | | | | | | [phone] | | | +--------+ + + + [...] | | 0 | | | | Nmlvbym-Oeqekdv-Fmeu | | | | | | | [...] EXTERNAL | | | | performed at [facility];[address] | K/uL | LAB | | | | [address];[place], [place] | | | | | | [address] | | | | + + + + + + | RED CELL | 4.72Comment: Testing | 4.20 - 5.70 | EXTERNAL | | | COUNT | performed at [facility];[address] | M/uL | LAB | | | | [address];[place] | | | | | | [address] | | | | + + + + + + | Hgb | 14.7Comment: Testing | 13.2 - 17.0 | EXTERNAL | | | | performed at [facility];888 | g/dL | LAB | | | | [address];[place] | | | | | | [address] | | | | + + + + + + | Hematocrit, | 42.3Comment: Testing | 39.0 - 50.0 % | EXTERNAL | | | POC | performed at [facility];[address] | | LAB | | | | [address];[place] | | | | | | [address] | | | | + + + + + + | MCV | 89.5Comment: Testing | 80.0 - 100.0 fl | EXTERNAL | | | | performed at [facility];[address] | | LAB | | | | [address];[place] | | | | | | [address] | | | | + + + + + + | MCH | 31.1Comment: Testing | 27.0 - 34.0 pg | EXTERNAL | | | | performed at [facility];[address] | | LAB | | | | [address];[place] | | | | | | [address] | | | | + + + + + + | MCHC | 34.7Comment: Testing | 32.0 - 35.5 | EXTERNAL | | | | performed at [facility];888 | g/dL | LAB | | | | [address];[place] | | | | | | [address] | | | | + + + + + + | RDW-CV | 43.8Comment: Testing | 37 - 53 fl | EXTERNAL | | | | performed at [facility];[address] | | LAB | | | | [address];[place] | | | | | | [address] | | | | + + + + + + | Platelet | 159Comment: Testing | 150 - 400 K/uL | EXTERNAL | | | Count | performed at [facility];[address] | | LAB | | | Plasma | [address];[place] | | | | | | [address] | | | | + + + + + + | MPV | 8.3Comment: Testing | fl | EXTERNAL | | | | performed at [facility];[address] | | LAB | | | | [address];[place] | | | | | | [address] | | | | + + + + + + | Differentia | AUTOMATEDComment: | | EXTERNAL | | | l Type | Testing performed at | | LAB | | | | [facility];[address];[place] [address] | | | | + + + + + + | % Segmented | 59.42Comment: Testing | % | EXTERNAL | | | | performed at [facility];[address] | | LAB | | | Neutrophils | [address];[place] | | | | | | [address] | | | | + + + + + + | % | 29.90Comment: Testing | % | EXTERNAL | | | Lymphocytes | performed at [facility];[address] | | LAB | | | | [address];[place] | | | | | | [address] | | | | + + + + + + | % Monocytes | 9.06Comment: Testing | % | EXTERNAL | | | | performed at [facility];[address] | | LAB | | | | [address];[place] | | | | | | [address] | | | | + + + + + + | % | 1.16Comment: Testing | % | EXTERNAL | | | Eosinophils | performed at [facility];[address] | | LAB | | | | [address];[place] | | | | | | [address] | | | | + + + + + + | % Basophils | 0.46Comment: Testing | % | EXTERNAL | | | | performed at [facility];[address] | | LAB | | | | [address];[place] | | | | | | [address] | | | | + + + + + + | Absolute | 1.95Comment: Testing | 1.90 - 7.40 | EXTERNAL | | | Segmented | performed at [facility];[address] | K/uL | LAB | | | Neutrophils | [address];[place] | | | | | | [address] | | | | + + + + + + | Absolute | 0.98 (L)Comment: Testing | 1.00 - 3.90 | EXTERNAL | | | Lymphocytes | performed at [facility];[address] | K/uL | LAB | | | | [address];[place] | | | | | | [address] | | | | + + + + + + | Absolute | 0.30Comment: Testing | 0.00 - 0.80 | EXTERNAL | | | Monocytes | performed at [facility];[address] | K/uL | LAB | | | | [address];[place] | | | | | | [address] | | | | + + + + + + | Absolute | 0.04Comment: Testing | 0.00 - 0.50 | EXTERNAL | | | Eosinophils | performed at [facility];[address] | K/uL | LAB | | | | [address];[place] | | | | | | [address] | | | | + + + + + + | Absolute | 0.02Comment: Testing | 0.00 - 0.10 | EXTERNAL | | | Basophils | performed at [facility];[address] | K/uL | LAB | | | | [address];[place] | | | | | | [address] | | | | + + + [...] EXTERNAL | | | | performed at [facility];888 | mmol/L | LAB | | | | [address];[place] | | | | | | [address] | | | | + + + + + + | K | 3.2 (L)Comment: Testing | 3.5 - 4.9 | EXTERNAL | | | | performed at [facility];[address] | mmol/L | LAB | | | | [address];[place] | | | | | | [address] | | | | + + + + + + | Cl | 111 (H)Comment: Testing | 99 - 109 mmol/L | EXTERNAL | | | | performed at [facility];[address] | | LAB | | | | [address];[place] | | | | | | [address] | | | | + + + + + + | CO2 | 26Comment: Testing | 23 - 32 mmol/L | EXTERNAL | | | | performed at [facility];[address] | | LAB | | | | [address];[place] | | | | | | [address] | | | | + + + + + + | Anion Gap | 9Comment: Testing | 5 - 20 mmol/L | EXTERNAL | | | | performed at [facility];[address] | | LAB | | | | [address];[place] | | | | | | [address] | | | | + + + + + + | Glucose, | 112 (H)Comment: Testing | 65 - 99 mg/dL | EXTERNAL | | | Fasting | performed at [facility];[address] | | LAB | | | | [address];[place] | | | | | | [address] | | | | + + + + + + | BUN | 12Comment: Testing | 8 - 25 mg/dL | EXTERNAL | | | | performed at [facility];[address] | | LAB | | | | [address];[place] | | | | | | [address] | | | | + + + + + + | Creatinine | 0.85Comment: Testing | 0.70 - 1.30 | EXTERNAL | | | | performed at [facility];[address] | mg/dL | LAB | | | | [address];[place] | | | | | | [address] | | | | + + + + + + | BUN/Creatin | 14Comment: Testing | | EXTERNAL | | | ine Ratio | performed at [facility];[address] | | LAB | | | | [address];[place] | | | | | | [address] | | | | + + + + + + | Calcium | 8.5Comment: Testing | 8.5 - 10.5 | EXTERNAL | | | | performed at [facility];888 | mg/dL | LAB | | | | [address];[place] | | | | | | [address] | | | | + + + + + + | Protein, | 8.2Comment: Testing | 6.3 - 8.2 g/dL | EXTERNAL | | | Total | performed at [facility];[address] | | LAB | | | | [address];[place] | | | | | | [address] | | | | + + + + + + | Albumin | 3.9Comment: Testing | 3.6 - 5.0 g/dL | EXTERNAL | | | | performed at [facility];[address] | | LAB | | | | [address];[place] | | | | | | [address] | | | | + + + + + + | Globulin | 4.3Comment: Testing | 1.3 - 4.9 g/dL | EXTERNAL | | | | performed at [facility];[address] | | LAB | | | | [address];[place] | | | | | | [address] | | | | + + + + + + | A/G Ratio | 0.9 (L)Comment: Testing | 1.0 - 2.4 | EXTERNAL | | | | performed at [facility];[address] | | LAB | | | | [address];[place] | | | | | | [address] | | | | + + + + + + | Bilirubin | 0.7Comment: Testing | 0.1 - 1.5 mg/dL | EXTERNAL | | | Total | performed at [facility];[address] | | LAB | | | | [address];[place] | | | | | | [address] | | | | + + + + + + | ALP, | 93Comment: Testing | 35 - 115 U/L | EXTERNAL | | | External | performed at [facility];[address] | | LAB | | | | [address];[place] | | | | | | [address] | | | | + + + + + + | AST | 20Comment: Testing | 10 - 45 U/L | EXTERNAL | | | | performed at [facility];[address] | | LAB | | | | [address];[place] | | | | | | [address] | | | | + + + + + + | ALT | 22Comment: Testing | 10 - 65 U/L | EXTERNAL | | | | performed at [facility];[address] | | LAB | | | | [address];[place] | | | | | | [address] | | | | + + + [...] | | | | | | at [facility];[address];[place] [address] | | | | + + + [...] (500), | | | | | | makeup editor Dajuan Aldana | | | | | | Ananda (123) on 11/08/2016 | | | | | | 9:01:07 PM | | | | + + + + + + + + | Specimen | + + | | + + + + + | Narrative | Performed At | + + + | Historically converted procedure from [facility] | EXTERNAL LAB | + + + [...]
--- OUTSIDE RECORDS SUMMARY | ~2019-09-03 | XMS | Encounter Summary ---
Demographics + + + | Address | [address] [facility] | | | [place] [address] | + + + | Home Phone | | + + + | Preferred Language | Unknown | + + + | Marital Status | Single | + + + | Tenriism Affiliation | Unknown | + + + | Race | Unknown | + + + | Ethnic Group | Unknown | + + + Author + + + | Author | [facility] | | | and [place] | + + + | Organization | [facility] | | | and [place] | + + + | Address | Unknown | + + + | Phone | Unavailable | + + + Care Team Providers + +------+ + | Care Guest Experience Specialist Name | Role | Phone | + +------+ + | Grecia Miranda NP | PCP | | + +------+ + Encounter Details +--------+ + + + + | Date | Type | Department | Care Team | Description | +--------+ + + + + | 11/17/ | Hospital | [facility] | Ted Jacinto | Gastroesophageal | | 2017 | Encounter | [facility] | MD [address] | reflux disease, | | | | INTRA [address] | esophagitis presence | | | | [place], [place] | [place] [address] | not specified; | | | | [address] | [phone] | Pharyngoesophageal | | | | [phone] | | dysphagia | +--------+ + + + + Social [...] + | Blood Pressure | 115/82 | 11/17/2016 11:44 AM | | | | | PDT | | + + + + + | Pulse | 60 | 11/17/2016 11:44 AM | | | | | PDT | | + + + + + | Temperature | 36.3 C (97.4 F) | 11/17/2016 11:44 AM | | | | | PDT | | + + + + + | Respiratory Rate | 18 | 11/17/2016 11:44 AM | | | | | PDT | | + + + + + | Oxygen Saturation | - | - | | + + + + + | Inhaled Oxygen | - | - | | | Concentration | | | | + + + + + | Weight | 78 kg (171 lb 15.4 | 11/17/2016 11:44 AM | | | | oz) | PDT | | + + + + + | Height | 190.5 cm (6' 3") | 11/17/2016 11:44 AM | | | | | PDT | | + + + + + | Body Mass Index | 21.49 | 11/17/2016 11:44 AM | | | | | PDT | | + + + + + documented in this encounter Discharge Summaries Ted Jacinto MD - 11/17/2016 11:18 AM PDT Discharge Summaries by Ted Jacinto MD at 11/17/168 Author: Ted Jacinto MD Service: Gastroenterology Author Type: Physician Filed: 11/17/16 1119 Date of Service: 11/17/161117 Status: Signed Pit Clerk: Ted Jacinto MD (Physician) [facility] Service: Gastroenterology Brief Post-op Discharge Note DISCHARGE DIAGNOSES: Active Problems: Pharyngoesophageal dysphagia Gastroesophageal reflux disease Resolved Problems: * No resolved hospital problems. * Procedures: Procedure(s): ESOPHAGOGASTRODUODENOSCOPY This patient was transferred to the recovery area post-operatively and has experienced no d ifficulties at the time of my assessment. The patient is anticipated to continue to meet di scharge criteria per protocol as assessed by nursing and may be discharged at that time with designated caregiver. Disposition: Home Condition: Good Follow up: With GI clinic Medication List CONTINUE taking these medications dicyclomine 20 MG tablet Refills: 0 Commonly known as: BENTYL Zaezfoi-Bemnk-Mvtdajjv-TenofAF [id number] MG Tabs QTY: 30 tablet Refills: 11 Doctor's comments: Replacing Triumeq AND darunavir-cobicistat Commonly known as: GENVOYA Take 1 tablet by mouth daily. FLUOXETINE HCL PO Refills: 0 gabapentin 300 MG capsule Refills: 0 Commonly known as: NEURONTIN HYDROcodone-acetaminophen 5-325 MG per tablet Refills: 0 Commonly known as: NORCO mirtazapine 15 MG tablet Refills: 0 Commonly known as: REMERON naproxen 500 MG 24 hr tablet Refills: 0 Commonly known as: NAPRELAN omeprazole 20 MG capsule Refills: 0 Commonly known as: PRILOSEC PRAZOSIN HCL PO Refills: 0 quetiapine 200 MG tablet Refills: 0 Commonly known as: SEROquel TRAZODONE HCL PO Refills: 0 Ted Jacinto MD 11/17/2016 11:18 AM documented in th is encounter Medications at Time of Discharge + [...] | | 0 | | | | Djapbkb-Afgojgz-Vjzd | | | | | | | [...] documented as of this encounter Progress Notes Lexy Varela, Provider Unknown - 11/17/2016 11:06 AM PDTFormatting of this note m ight be different from the original. Nurse Progress Note by Precious Stark RN at 11/17/16 1106 Author: Precious Stark RN Service: (none) Author Type: Registered Nurse Filed: 11/17/16 1110 Date of Service: 11/17/161105 Status: Signed Pit Clerk: Precious Stark RN (Registered Nurse) 15 @ 30 sec 16.5 @ 30 sec docume nted in this encounter Plan of Treatment Not on filedocumented as of this encounter Procedures + +--------+ + + + | Procedure Name | Priori | Date/Time | Associated Diagnosis | Comments | | | ty | | | | + +--------+ + + + | TISSUE REQUEST FOR | Routin | 11/17/2016 | | Results for this | | PATHOLOGY (NON-ORD) | e | 12:00 AM | | procedure are in the | | | | PDT | | results section. | + +--------+ + + + documented in this encounter Results Tissue Request For Pathology (11/17/2016 12:00 AM PDT) + + | Specimen | + + | Soft tissue sample | | (specimen) | + + + + + | Narrative | Performed At | + + + | SPECIMEN(S): A GASTRIC- BIOPSY SPECIMEN(S): B DISTAL ESOPHAGEAL | EXTERNAL LAB | | BIOPSY SPECIMEN(S): C MID ESOPHAGEAL BIOPSY SPECIMEN SOURCE: A. | | | GASTRIC- BIOPSY B. DISTAL ESOPHAGEAL BIOPSY C. MID ESOPHAGEAL BIOPSY | | | CLINICAL HISTORY: 11/17/2016 at 1107 H. Dysphagia. MICROSCOPIC | | | DESCRIPTION: A-C. Histologic sections of all submitted blocks are | | | examined by light microscopy. These findings, together with the gross | | | examination, support the pathologic diagnosis. FINAL PATHOLOGIC | | | DIAGNOSIS: A. Stomach, biopsies: - Chronic gastritis with | | | mild inflammatory activity. - Helicobacter pylori are detected | | | by Warthin-Starry stain. B. Distal esophagus, biopsies: - | | | Benign squamous esophageal mucosa with focal vascular congestion. | | | - Negative for Elizabeth's (goblet cell) metaplasia, dysplasia or | | | malignancy. C. Mid esophagus, biopsies: - Benign squamous | | | esophageal mucosa with vascular congestion. - Negative for | | | increased eosinophils. AMB:emb:C2NR GROSS DESCRIPTION: Three | | | specimens are received in three containers labeled with the patient's | | | name: A. The specimen is received in formalin designated "gastric | | | biopsy" and consists of two yellow-cardenas soft tissue fragments that | | | measure 0.3 and 0.4 cm in greatest dimension. The specimen is | | | entirely submitted in cassette A1. B. The specimen is received in | | | formalin designated "distal esophagus biopsy" and consists of two | | | pink-white soft tissue fragments that measure 0.4 cm in greatest | | | dimension. The specimen is entirely submitted in cassette B1. | | | C. The specimen is received in formalin designated "mid esophageal | | | biopsy" and consists of two pink-white soft tissue fragments that | | | measure 0.5 and 0.6 cm in greatest dimension. The specimen is | | | entirely submitted in cassette C1. FAM:[facility] PERFORMING LABORATORY: | | | Professional interpretation and technical preparation was performed by | | | [employer], [facility], [address] [place] [address]., | | | [place] [address] (Contracts Analyst: Baljit Gonzalez M.D.; | | | IA#: [id number]). Diagnostician: Shu Arango MD Pathologist | | | Electronically Signed 11/18/2016 | | + + + + +---------+ + + | Performing | Address | City/State/Zipcode | Phone Number | | Organization | | | | + +---------+ + + | EXTERNAL LAB | | | | + +---------+ + + documented in this encounter Visit Diagnoses + + | Diagnosis | + + | Gastroesophageal reflux disease, esophagitis presence not specified | + + | Pharyngoesophageal dysphagia Dysphagia, pharyngoesophageal phase | + + documented in this encounter
--- OUTSIDE RECORDS SUMMARY | ~2019-09-03 | XMS | Encounter Summary ---
Demographics + + + | Address | [address] [facility] | | | [place] [address] | + + + | Home Phone | | + + + | Preferred Language | Unknown | + + + | Marital Status | Single | + + + | Rastafarian Affiliation | Unknown | + + + | Race | Unknown | + + + | Ethnic Group | Unknown | + + + Author + + + | Author | [facility] | | | and [place] | + + + | Organization | [facility] | | | and [place] | + + + | Address | Unknown | + + + | Phone | Unavailable | + + + Care Team Providers + +------+ + | Care Hydro Station Operator Name | Role | Phone | + +------+ + | Grecia Miranda NP | PCP | | + +------+ + Encounter Details +--------+ + + + + | Date | Type | Department | Care Team | Description | +--------+ + + + + | 01/28/ | Orders Only | [facility] | Conversion | | | 2013 | | INFECTIOUS DISEASE | Transaction, | | | | | [address] [facility] | Provider Unknown | | | | | [place], [place] | [phone] | | | | | [address] | | | | | | [phone] | | | +--------+ + + + [...] + + + | HIV-1 Ultra | [id number] | | EXTERNAL | | | Viral [...]
--- OUTSIDE RECORDS SUMMARY | ~2019-09-03 | XMS | Encounter Summary ---
Demographics + + + | Address | [address] [facility] | | | [place] [address] | + + + | Home Phone [...] Author | [facility] | | | and [place] | + + + | Organization | [facility] | | | and [place] | + + + | Address | Unknown | + + + | Phone | Unavailable | + + + Care Team Providers + +------+ + | Care Shell Molder Name | Role | Phone | + [...] + + | 09/21/ | Telephone | [facility] | Escobar Muir, | Appointment (Patient | | 2012 | | SURGERY [address] | [address], | called wanting to | | | | [place], [place] | [address] [place], | schedule surgery) | | | | [address] | [place] [address] | | | | | [phone] | [phone] | | | | | | | [...]
--- OUTSIDE RECORDS SUMMARY | ~2019-09-03 | XMS | Encounter Summary ---
Demographics + + + | Address | [address] [facility] | | | [place] [address] | + + + | Home Phone | | + + + | Preferred Language | Unknown | + + + | Marital Status | Single | + + + | Presybeterian Affiliation | Unknown | + + + [...] Team Providers + +------+ + | Care Roller Varnisher Name | Role | Phone | + +------+ + | Grecia Miranda NP | PCP | | + +------+ + Encounter Details +--------+ + + + + | Date | Type | Department | Care Team | Description | +--------+ + + + + | 08/17/ | Hospital | [facility] | Ted Jacinto | Rectal pain; Other | | 2017 | Encounter | [facility] | MD [address] | constipation; | | | | [address]TRA [address] | [address] | Generalized | | | | [address] [place], [place] | [place] [address] | abdominal pain | | | | [address] | [phone] | | | | | [phone] | | | +--------+ + + + [...] | | 0 | | | | Kcdhinh-Tucuw[facility]-Djya | | | | | | | [...] (none) Author Type: Registered Nurse Filed: 08/17/17 9174 Date of Service: 08/17/17 1300 Status: Signed Bander And Cellophaner Helper Machine: Indy Mandel RN (Registered Nurse) Patient stated [...]
--- OUTSIDE RECORDS SUMMARY | ~2019-09-03 | XMS | Encounter Summary ---
Demographics + + + | Address | [address] [facility] | | | [place] [address] | + + + | Home Phone | | + + + | Preferred Language | Unknown | + + + | Marital Status | Single | + + + | Tenriism Affiliation | Unknown | + + + | Race | Unknown | + + + | Ethnic Group | Unknown | + + + Author + + + | Author | [facility] | | | and [place] | + + + | Organization | [facility] | | | and [place] | + + + | Address | Unknown | + + + | Phone | Unavailable | + + + Care Team Providers + +------+ + | Care Digital Sales Director Name | Role | Phone | + +------+ + | Grecia Miranda NP | PCP | | + +------+ + Encounter Details +--------+ + + + + | Date | Type | Department | Care Team | Description | +--------+ + + + + | 06/08/ | Orders Only | [facility] | Conversion | | | 2016 | | INFECTIOUS DISEASE | Transaction, | | | | | [address] [facility] | Provider Unknown | | | | | [place], [place] | [phone] | | | | | [address] | | | | | | [phone] | | | +--------+ + + + [...] for this | | | e | 12:54 PM | | procedure are in the | | | | PDT | | results section. | + +--------+ + + + | COMPREHENSIVE | Routin | 06/08/2017 | | Results for this | | METABOLIC PANEL | e | 12:54 PM | | procedure are in the | | | | PDT | | results section. | + +--------+ + + + documented in this encounter Results External Lab: CBC (06/08/2017 12:54 PM PDT) + +---------+ + + + | Component | Value | Ref Range | Performed | Pathologist | | | | | At | Signature | + +---------+ + + + | WBC | 2.7 (A) | 4.5 - 11.0 10 | EXTERNAL | | | | | | LAB | | + +---------+ + + + | RED CELL | 4.49 | 4.3 - 5.7 10 | EXTERNAL | | | COUNT | | | LAB | | + +---------+ + + + | Hgb | 15.1 | 13.5 - 18.0 | EXTERNAL | | | | | g/dL | LAB | | + +---------+ + + + | Hematocrit, | 43.5 | 41 - 50 % | EXTERNAL | | | POC | | | LAB | | + +---------+ + + + | MCV | 97.0 | 81 - 99 fL | EXTERNAL | | | | | | LAB | | + +---------+ + + + | MCH | 34 (A) | 27 - 33 pg | EXTERNAL | | | | | | LAB | | + +---------+ + + + | MCHC | 35 | 30 - 36 g/dL | EXTERNAL | | | | | | LAB | | + +---------+ + + + | Platelet | 163 | 140 - 440 K/ L | EXTERNAL | | | Count | | | LAB | | | Plasma | | | | | + +---------+ + + + | RDW-CV | | % | EXTERNAL | | | [...] + + + | % Segmented | | % | EXTERNAL | | | | | | LAB | | | Neutrophils | | | | | + +---------+ + + + | % | | % | EXTERNAL | | | Lymphocytes | | | LAB | | + +---------+ + + + | % Monocytes | | % | EXTERNAL | | | | | | LAB | | + +---------+ + + + | % | | % | EXTERNAL | | | Eosinophils | | | LAB | | + +---------+ + + + | % Basophils | | % | EXTERNAL | | | [...] +---------+ + + Comprehensive Metabolic Panel (06/08/2017 12:54 PM PDT) + +---------+ + + + | Component | Value | Ref Range | Performed | Pathologist | | | | | At | Signature | + +---------+ + + + | Glucose, | 96 | 70 - 100 mg/dL | EXTERNAL | | | Fasting | | | LAB | | + +---------+ + + + | BUN | 10 | 6 - 23 mg/dL | EXTERNAL | | | | | | LAB | | + +---------+ + + + | Creatinine | 0.88 | 0.60 - 1.35 | EXTERNAL | | | | | mg/dL | LAB | | + +---------+ + + + | BUN/Creatin | 11.4 | 6.0 - 28.6 | EXTERNAL | | | ine Ratio | | | LAB | | + +---------+ + + + | Calcium | 8.7 | 8.4 - 10.2 | EXTERNAL | | | | | mg/dL | LAB | | + +---------+ + + + | Protein, | 7.4 | 6.0 - 8.0 g/dL | EXTERNAL | | | Total | | | LAB | | + +---------+ + + + | Albumin | 4.1 | 3.5 - 5.0 | EXTERNAL | | | | | | LAB | | + +---------+ + + + | Globulin | 3.3 | 1.8 - 3.5 | EXTERNAL | | | | | | LAB | | + +---------+ + + + | A/G Ratio | 1.2 | 1.1 - 2.4 | EXTERNAL | | | | | | LAB | | + +---------+ + + + | Bilirubin | 1.1 | 0.0 - 1.2 mg/dL | EXTERNAL | | | Total | | | LAB | | + +---------+ + + + | ALP, | 84 | 31 - 120 | EXTERNAL | | | External | | | LAB | | + +---------+ + + + | ALT | 13 | 7 - 52 U/L | EXTERNAL | | | | | | LAB | | + +---------+ + + + | AST | 20 | 13 - 39 U/L | EXTERNAL | | | | | | LAB | | + +---------+ + + + | Na | 138 | 132 - 143 | EXTERNAL | | | | | mmol/L | LAB | | + +---------+ + + + | K | 3.3 (A) | 3.6 - 5.1 | EXTERNAL | | | | | mmol/L | LAB | | + +---------+ + + + | Cl | 108 | 95 - 112 mmol/L | EXTERNAL | | | | | | LAB | | + +---------+ + + + | CO2 | 25 | 19 - 31 mmol/L | EXTERNAL | | | | | | LAB | | + +---------+ + + + | Anion Gap | 8.3 | 7 - 21 mmol/L | EXTERNAL | | | | [...]
--- OUTSIDE RECORDS SUMMARY | ~2019-09-03 | XMS | Encounter Summary ---
Demographics + + + | Address | [address] [facility] | | | [place] [address] | + + + | Home Phone [...] Author | [facility] | | | and [place] | + + + | Organization | [facility] | | | and [place] | + + + | Address | Unknown | + + + | Phone | Unavailable | + + + Care Team Providers + +------+ + | Care Software Verification Engineer Name | Role | Phone | + +------+ + | Malick Andrews MD | PCP | | + +------+ + Encounter Details +--------+ + + + + | Date | Type | Department | Care Team | Description | +--------+ + + + + | 05/31/ | Abstract | [facility] | Nahum Suero | | | 2013 | | NEUROLOGY ALAINA Hoyt MD Need updated | | | | | [address] [facility], | address | | | | | [place] [address] [address] | | | | | | [place] [address] | | | | | | [phone] | | | +--------+ + + + [...]
--- OUTSIDE RECORDS SUMMARY | ~2019-09-03 | XMS | Encounter Summary ---
Demographics + + + | Address | [address] [facility] | | | [place] [address] | + + + | Home Phone | | + + + | Preferred Language | Unknown | + + + | Marital Status | Single | + + + | Anglican Affiliation | Unknown | + + + | Race | Unknown | + + + | Ethnic Group | Unknown | + + + Author + + + | Author | [facility] | | | and [place] | + + + | Organization | [facility] | | | and [place] | + + + | Address | Unknown | + + + | Phone | Unavailable | + + + Care Team Providers + +------+ + | Care Kiosk Sales Representative Name | Role | Phone | + +------+ + | Grecia Miranda NP | PCP | | + +------+ + Reason for Visit + + + | Reason | Comments | + + + | Follow-up | 7th never palsy | + + + Follow Up (Routine) +--------+--------+ + + + + | [...] | | | | side | [place] [address] | | | | | | | Phone: | | | | | | | [phone] | | | | | | | Fax: | | | | | | | [phone] | | +--------+--------+ + + + + Encounter Details +--------+---------+ + + + | Date | Type | Department | Care Team | Description | +--------+---------+ + + + | 09/04/ | Office | [facility] | Nahum Suero | Facial nerve palsy | | 2015 | Visit | [facility]Y [facility] | MD Evelina Need updated | (Primary Dx); Eye | | | | [address] [facility], | address | pain, left; | | | | [address] [facility] [address] | | Trigeminal | | | | [place] [address] | | neuropathy | | | | [phone] | | | +--------+---------+ + + + [...] + | Blood Pressure | 109/56 | 09/04/2014 3:03 PM | | | | | PST | | + + + + + | Pulse | 91 | 09/04/2014 3:03 PM | | | | | PST | | + + + + + | Temperature | - | - | | + + + + + | Respiratory Rate | 16 | 09/04/2014 3:03 PM | | | | | PST | | + + + + + | Oxygen Saturation | - | - | | + + + + + | Inhaled Oxygen | - | - | | | Concentration | | | | + + + + + | Weight | 75.3 kg (166 lb) | 09/04/2014 3:03 PM | | | | | PST | | + + + + + | Height | 190.5 cm (6' 3") | 09/04/2014 3:03 PM | | | | | PST | | + + + + + | Body Mass Index | 20.75 | 09/04/2014 3:03 PM | | | | | PST | | + + + + + documented in this encounter Patient Instructions Patient Instructions Nahum Suero MD - 09/04/2014 3:19 PM PST1) See eye doctor 2) Stop gabapentin 3) Follow up as needed Anatomy of the Brain The brain controls the body. You can move and feel because of the brain. And it is the brai n that makes you able to think, to show emotions, and to make judgments. The brain is protec nestor by the skull, tissue, and fluid. Functions of the Brain The brain s right side controls the left side of the body. And the left side of the brain controls the body s right side. Each section of the brain has specific roles. Some skills and traits occur in more than one section. The main parts of the brain and some of their fu nctions are listed below. Protecting the Brain Beneath its outer covering of tissue (called the dura), the brain is cushioned and supporte d by a special fluid. This cerebrospinal fluid fills the space between the dura and brain. A rteries and veins carry blood to and from the brain. Without a fresh supply of blood, brain tissue quickly dies. [phone] [employer]. [address] [place], [place] [address]. All righ ts reserved. This information is not intended as a substitute for professional medical care. Always follow your healthcare professional's instructions. documented in this encounter Progress Notes Nahum Suero MD - 09/04/2014 3:03 PM PSTFormatting of this note might be differen t from the original. Nahum Suero MD [address] [place] [address], [address] [place] [address] Neurology Outpatient ProgressNote Patient ID: Mr. Greene is a 44 y.o. 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 Mr. Greene was last seen 07/29/14 Interval History: Since last visit, Mr. Greene has continued to note improvements in facial strength, and ernesto n associated with his facial nerve palsy. He has been taking gabapentin 300 mg qhs, which oc casionally makes him groggy in the morning. He isn't sure if the gabapentin is helping, or i f the pain resolved on its own. Mr. Greene was scheduled to see an shafting worker for his o ngoing left eye trouble. He saw an rental management trainee at his local [facility] before his scheduled con sultation, and cancelled the subsequent visit. He was given drops and a new prescript for gl asses by the rental management trainee. His eye continues to sting despite the drops. He is now able to ju st barely close his eye completely. He has been taping his eye shut. Mr. Greene denies any n ew focal neurologic deficits. Past Medical History: Past Medical History Diagnosis Date HIV INFECTION Abdominal hernia Current Medications: Current Medications dicyclomine (BENTYL) 20 MG tablet (Taking) Take 20 mg by mouth. Igkuget-Gjuvgss-Wwxpdxkf-Tenof (STRIBILD PO) (Taking) Take by mouth. hrqccfnuyv-qxqhnfdy-cmfaybhdq (COMPLERA) 200-25-300 mg Take 1 tablet by mouth Daily. Take with a meal. gabapentin (NEURONTIN) 300 mg capsule (Taking) Take 1 capsule by mouth 2 times daily. HYDROCORTISONE PO (Taking) Take by mouth. OMEPRAZOLE PO (Taking) Take 40 mg by mouth Daily. QUEtiapine Fumarate (SEROQUEL PO) (Taking) Take 150 mg by mouth 3 times daily. RANITIDINE HCL PO (Taking) Take 15 mg by mouth Daily. Allergies: No Known Allergies Social history and family history are otherwise unchanged. ROS: GENERALLY: No fever, + night sweats, no anemia, no fatigue, no recent profound weight rivera es. EYES: No eye problems, + impaired sight, no use of corrective lenses, no eye injury, no fallon ble vision, no blindness. EARS, NOSE, AND THROAT: No changes in taste or smell, no hearing difficulty, + ringing in t he ears, no ear drainage, + dizziness, no voice changes, no difficulty swallowing, no signif icant snoring, no sleep apnea, no sinus problems, no major dental work. NEUROLOGICALLY: Please see the review of systems discussed above in the history of present illness. In addition, the patient has numbness/pain of arms, numbness/pain of legs, muscle a ratna, and neck injury. PSYCHIATRIC: + depression, no sleep disorders, no anxiety, no bipolar disorder, no psychoti c episodes. CARDIOVASCULAR: No heart attacks, no heart murmur, no heart fluttering, no chest pain, no a nkle swelling. LUNG DISEASE: No shortness of breath, no cough, no tuberculosis, no bloody cough, no asthma , no emphysema/COPD. GASTROINTESTINAL: No bowel disease, no nausea or vomiting, no rectal bleeding, no constipat ion, no stool incontinence, no liver disease, no gallbladder disease, + abdominal pain, no u lcers. KIDNEY DISEASE: No urinary frequency, no painful or difficult urination, no incontinence. ENDOCRINE: No diabetes, no thyroid disease, no osteopenia or osteoporosis, no breast draina ge. SKIN: No breast lumps, no skin changes, no rashes, no itches. HEMATOLOGIC/LYMPHATIC: No enlarged lymph nodes, no easy or unusual bleeding, no personal hi story of cancer. RHEUMATOLOGIC: + joint arthritis, no rheumatoid arthritis. Examination: BP 109/56 | Pulse 91 | Resp 16 | Ht 1.905 m (6' 3") | Wt 75.297 kg (166 lb) | BMI 20.75 kg/ m2 General: well developed and well nourished HEENT: sclera clear, anicteric and oropharynx clear, no lesions Cardiovascular: regular rate and rhythm, no murmurs Respiratory: clear to auscultation, no wheezes or rales and unlabored breathing Extremities: peripheral pulses normal, no pedal edema, no clubbing or cyanosis Neurologic: Mental Status: alert, oriented to person, place, and time, speech is fluent Cranial Nerves: cranial nerves II-XII are intact except subtle LMN pattern 7th nerve weakne ss on left. Superimposed decrease to sensation over V2 and V3 on left. Motor: normal 5/5 strength in all tested muscle groups Sensation: normal light touch Coordination/Cerebellar: finger to nose normal Gait: normal Radiographic Review: No new imaging Laboratory Review: None Assessment: Mr. Greene is a 44 y.o. male with a history of HIV, following up in neurology clinic for 5t h & 7th nerve palsy. He continues to recover facial nerve function and is no longer inhibite d by pain. I remain concerned about potential corneal ulceration of his left eye. Plan: 1) I have asked Mr. Greene to see the shafting worker that we previously referred him to. Graciela mendez is willing. We will have the ophthalmology clinic to arrange scheduling. 2) Patient will stop gabapentin and assess if he remains pain free after 1 week. 3) Follow up as needed, but we will watch for reports regarding his eye function. 4) Encouraged patient to continue with eye drops provided by optometry, and keep covering h is eye at night. 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
--- OUTSIDE RECORDS SUMMARY | ~2019-09-03 | XMS | Encounter Summary ---
Demographics + + + | Address | [address] [facility] | | | [place] [address] | + + + | Home Phone | | + + + | Preferred Language | Unknown | + + + | Marital Status | Single | + + + | Yarsani Affiliation | Unknown | + + + [...] Team Providers + +------+ + | Care Switchboard Wire Worker Helper Name | Role | Phone | + +------+ + | Ruben Shin MD | PCP | | + +------+ + Reason for Visit +---------+ + | Reason | Comments | +---------+ + | Post Op | Small supraumbillical hernia | +---------+ + Encounter Details +--------+---------+ + + + | Date | Type | Department | Care Team | Description | +--------+---------+ + + + | 11/15/ | Office | [facility] | Escobar Muir, | Ventral hernia | | 2012 | Visit | SURGERY [address] | [address], | (Primary Dx) | | | | [place], [place] | [address] [place], | | | | | [address] | [place] [address] | | | | | [phone] | [phone] | | | | | | | | +--------+---------+ + + + [...] + + + | Blood Pressure | 110/66 | 11/15/2012 9:39 AM | | | | | PDT | | + + + + + | Pulse | 54 | 11/15/2012 9:39 AM | | | | | PDT | | + + + + + | Temperature | 36.4 C (97.5 F) | 11/15/2012 9:39 AM | | | | | PDT | | + + + + + | Respiratory Rate | 16 | 11/15/2012 9:39 AM | | | [...] Weight | 74.4 kg (164 lb) | 11/15/2012 9:39 AM | | | | | PDT | | + + + + + | Height | 190.5 cm (6' 3") | 11/15/2012 9:39 AM | | | | | PDT | | + + + + + | Body Mass Index | 20.5 | 11/15/2012 9:39 AM | | | | | PDT | | + + + + + documented in this encounter Progress Notes Escobar Muir MD - 11/15/2012 9:42 AM PDTFormatting of this note might be different fr om the original. Subjective: He is a patient of Ruben Shin here today for evaluation of small supraumbilical hernia. HPI This patient returns to see me after having undergone a ventral hernia repair without mesh on October 11. He is healing up nicely. He still has discomfort at his surgery site. He was unable to come to his postoperative visit on his scheduled date. The patient showed up today without an appointment and we worked him in to complete his care. No problems with co nstipation or difficulty with urination. Review of Systems Objective: Physical ExamBP 110/66 | Pulse 54 | Temp 36.4 C (97.5 F) | Resp 16 | Ht 1.905 m (6' 3") | Wt 74.39 kg (164 lb) | BMI 20.50 kg/m2 | SpO2 100% Incisions clean dry and intact no erythema induration or discharge in the abdomen No bulge with coughing or straining maneuvers. Assessment: I used Prolene suture for repair. The discomfort will gradually improved over a three-kip h period. The patient seemed understanding. He was a little disappointed with the low grad e discomfort that is still present. Plan: Followup on an as-needed basis. The patient understands as long as he continues to improve no further followup is necessary, however if he is getting worse over the to see him back a gain. Thank you again for the referral. documented in this e ncounter Plan of Treatment Not on filedocumented as of this encounter Visit Diagnoses + + | Diagnosis | + + | Ventral hernia - Primary Ventral hernia, unspecified, without mention of obstruction | | or gangrene | + + documented in this encounter
--- OUTSIDE RECORDS SUMMARY | ~2019-09-03 | XMS | Encounter Summary ---
Demographics + + + | Address | [address] [facility] | | | [place] [address] | + + + | Home Phone [...] + + + | Author | [facility] | | | and [place] | + + + | Organization | [facility] | | | and [place] | + + + | Address | Unknown | + + + | Phone | Unavailable | + + + Care Team Providers + +------+ + | Care Well Digger Name | Role | Phone | + [...] + + | 11/15/ | Office | [facility] | Escobar Muir, | Ventral hernia | | 2012 | Visit | SURGERY [address] | [address], | (Primary Dx) | | | | [place], [place] | [address] [place], | | | | | [address] | [place] [address] | | | | | [phone] | [phone] | | | | | | | [...]
--- OUTSIDE RECORDS SUMMARY | ~2019-09-03 | XMS | Encounter Summary ---
Demographics + + + | Address | [address] [facility] | | | [place] [address] | + + + | Home Phone [...] + + | Organization | [facility] | | | and [place] | + + + | Address | Unknown | + + + | Phone | Unavailable | + + + Care Team Providers + +------+ + | Care Real Estate Leasing Agent Name | Role | Phone | + +------+ + | Grecia Miranda NP | PCP | | + +------+ + Encounter Details +--------+ + + + + | Date | Type | Department | Care Team | Description | +--------+ + + + + | 11/17/ | Hospital | LOCATED WITHIN [facility] | Ted Jacinto | Gastroesophageal | | 2017 | Encounter | [facility] | MD Madyson [address] | reflux disease, | | | | INTRA OP [address] | esophagitis presence | | | | [place], [place] | [place] [address] | not specified; | | | | [address] | [phone] | Pharyngoesophageal | | | | [phone] | | dysphagia | +--------+ + + [...] 1119 Date of Service: 11/17/161117 Status: Signed Rn Employee Health: Ted Jacinto MD (Physician) [facility] Service: Gastroenterology Brief Post-op Discharge Note DISCHARGE [...] tablet Refills: 0 Commonly known as: BENTYL Aprrkam-Szpom-Wpqzvtxj-TenofAF [phone] MG Tabs QTY: 30 tablet Refills: 11 [...] | | 0 | | | | Dsjcmup-Npujere-Ojlf | | | | | | | [...] 1110 Date of Service: 11/17/161105 Status: Signed Rn Employee Health: Precious Stark RN (Registered Nurse) 15 @ [...] | | entirely submitted in cassette C1. FAM:[facility] PERFORMING LABORATORY: | | | Professional interpretation and technical preparation was performed by | | | [employer], [facility], [address] [place] [address]., | | | [place] [address] (Channel Executive: Baljit Gonzalez M.D.; | | | IA#: [id number]). Diagnostician: Shu Arango MD Pathologist | | [...]
--- OUTSIDE RECORDS SUMMARY | ~2019-09-03 | XMS | Encounter Summary ---
Demographics + + + | Address | [address] [facility] | | | [place] [address] | + + + | Home Phone | | + + + | Preferred Language | Unknown | + + + | Marital Status | Single | + + + | Quaker Affiliation | Unknown | + + + | Race | Unknown | + + + | Ethnic Group | Unknown | + + + Author + + + | Author | [facility] | | | and [place] | + + + | Organization | [facility] | | | and [place] | + + + | Address | Unknown | + + + | Phone | Unavailable | + + + Care Team Providers + +------+ + | Care Recreational Sports Director Name | Role | Phone | [...] | | | | side | [place] [address] | | | | | | | Phone: | | | | | | | [phone] | | | | | | | Fax: | | | | | | | [phone] | | +--------+--------+ + + + + Encounter Details +--------+---------+ + + + | Date | Type | Department | Care Team | Description | +--------+---------+ + + + | 09/04/ | Office | [facility] | Nahum Suero | Facial nerve palsy | | 2015 | Visit | [facility] | MD Evelina Need updated | (Primary Dx); Eye | | | | [address] [facility], | address | pain, left; | | | | [address] [facility] [address] | | Trigeminal | | | | [place] [address] | | neuropathy | | | | [phone] | | | +--------+---------+ + + + [...] supply of blood, brain tissue quickly dies. [id number] [employer]. [address] [place], [place] [address]. All righ ts reserved. This information is not intended as a substitute for professional medical care. Always follow your healthcare professional's instructions. documented in this encounter Progress Notes Nahum Suero MD - 09/04/2014 3:03 PM PSTFormatting of this note might be differen t from the original. Nahum Suero MD [address] [place] [address], [address] [place] [address] Neurology Outpatient ProgressNote Patient ID: Mr. Greene is a 44 y.o. male with a pertinent history of HIV, following up in neurology [facility] for 5th & 7th [...] Mr. Greene was scheduled to see an practicing dermatologist for his o ngoing left eye trouble. He saw an data support analyst at his local [facility] before his scheduled con sultation, and cancelled the subsequent visit. He was given drops and a new prescript for gl asses by the data support analyst. His eye continues to sting despite the drops. He is now able to ju st barely close his eye completely. He has been taping his eye shut. Mr. Greene denies any n ew focal neurologic deficits. Past Medical History: Past Medical History Diagnosis Date HIV INFECTION Abdominal hernia Current Medications: Current Medications dicyclomine (BENTYL) 20 MG tablet (Taking) Take 20 mg by mouth. Dcbbjmu-Ijoogwm-Bawmfhfx-Tenof (STRIBILD PO) (Taking) Take by mouth. qevwpdjmgc-sjmvjeqv-sevsmtzqx (COMPLERA) 200-25-300 mg Take 1 tablet by [...] have asked Mr. Greene to see the practicing dermatologist that we previously referred him to. Graciela [...]
--- OUTSIDE RECORDS SUMMARY | ~2019-09-03 | XMS | Encounter Summary ---
Demographics + + + | Address | [address] [facility] | | | [place] [address] | + + + | Home Phone | | + + + | Preferred Language | Unknown | + + + | Marital Status | Single | + + + | Muslim Affiliation | Unknown | + + + | Race | Unknown | + + + | Ethnic Group | Unknown | + + + Author + + + | Author | [facility] | | | and [place] | + + + | Organization | [facility] | | | and [place] | + + + | Address | Unknown | + + + | Phone | Unavailable | + + + Care Team Providers + +------+ + | Care Bunghole Borer Name | Role | Phone | + +------+ + | Grecia Miranda NP | PCP | | + +------+ + Encounter Details +--------+ + + + + | Date | Type | Department | Care Team | Description | +--------+ + + + + | 08/11/ | Orders Only | [facility] | Conversion | | | 2016 | | INFECTIOUS DISEASE | Transaction, | | | | | [address] [facility] | Provider Unknown | | | | | [place], [place] | [phone] | | | | | [address] | | | | | | [phone] | | | +--------+ + + + [...] Notes by Mariana Quan CMA at 08/11/17 7898 Author: Mariana Quan CMA Service: (none) Author Type: Gut Snatcher Filed: 08/17/17 0814 Encounter Date: 08/11/2017 Status: Signed Cytotechnologist Supervisor: Mariana Quan CMA (Gut Snatcher) Received 08/11/2017 [facility]. Abstracted into [facility] [facility], sent to scan. (CBC, CMP, HIV RNA, [...]
--- OUTSIDE RECORDS SUMMARY | ~2019-09-03 | XMS | Encounter Summary ---
Demographics + + + | Address | [address] [facility] | | | [place] [address] | + + + | Home Phone [...] Team Providers + +------+ + | Care Inseam Trimming Machine Operator Name | Role | Phone | + +------+ + | Grceia Miranda NP | PCP | | + +------+ + Encounter Details +--------+ + + + + | Date | Type | Department | Care Team | Description | +--------+ + + + + | 01/19/ | Orders Only | [facility] | Conversion | | | 2015 | | INFECTIOUS DISEASE | Transaction, | | | | | [address] [facility] | Provider Unknown | | | | | [place], [place] | [phone] | | | | | [address] | | | | | | [phone] | | | +--------+ + + + [...]
--- OUTSIDE RECORDS SUMMARY | ~2019-09-03 | XMS | Encounter Summary ---
Demographics + + + | Address | [address] [facility] | | | [place] [address] | + + + | Home Phone [...] + + | Author | [facility] | | | and [place] | + + + | Organization | [facility] | | | and [place] | + + + | Address | Unknown | + + + | Phone | Unavailable | + + + Care Team Providers + +------+ + | Care Trauma Nurse Name | Role | Phone | + +------+ + | Grecia Miranda NP | PCP | | + +------+ + Encounter Details +--------+ + + + + | Date | Type | Department | Care Team | Description | +--------+ + + + + | 03/19/ | Orders Only | [facility] | Provider, | | | 2018 | | SYSTEM GENERIC OP | MD [address] | | | | | CONVERSION [address] | [address] | | | | | [address] [facility], [place] | [place] [address] | | | | | [address] | | | | | | [phone] | | | +--------+ + + + [...]
--- OUTSIDE RECORDS SUMMARY | ~2019-09-03 | XMS | Encounter Summary ---
Demographics + + + | Address | [address] [facility] | | | [place] [address] | + + + | Home Phone [...] + + + | Author | [facility] | | | and [place] | + + + | Organization | [facility] | | | and [place] | + + + | Address | Unknown | + + + | Phone | Unavailable | + + + Care Team Providers + +------+ + | Care Acute Dialysis Nurse Name | Role | Phone | [...] Neuropathic | Nahum Hoyt, | [address] | | | | | pain | MD Need | [place], | | | | | 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 | [place] | | | | | Procedures | address | [address] | | | | | MRI Brain | | Phone: | | | | | w wo | | [phone] | | | | | Contrast | | Fax: | | | | | | | [phone] | +--------+--------+ + + + + Reason for Visit Diagnostic/Screening (Routine) +--------+--------+ + + + + | Status | Reason | Specialty | Diagnoses / | Referred By | Referred To | | | | | Procedures | Contact | Contact | +--------+--------+ + + + + | Closed | | Radiology | Diagnoses | [place], | [facility] | | | | | Neuropathic | Nahum Hoyt, | [address] | | | | | pain | MD Need | [place], | | | | | 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 | [place] | | | | | Procedures | address | [address] | | | | | MRI Brain | | Phone: | | | | | w wo | | [phone] | | | | | Contrast | | Fax: | | | | | | | [phone] | +--------+--------+ + + + + Encounter Details +--------+ + + + + | Date | Type | Department | Care Team | Description | +--------+ + + + + | 10/30/ | Hospital | [facility] | Nahum Suero | Neuropathic pain; | | 2013 | Encounter | MED CTR MRI [address] MD Need updated | Hartley's palsy | | | | [place], | address | | | | | [place] [address] | | | | | | [phone] | | | +--------+ + + + [...] | | 0 | | | | Bpuqgxx-Iyedxfh-Fhcg | | | | | | | [...] + | gabapentin | Take 1 capsule at | 60 | 2 | 06/10/20 | | | (NEURONTIN) 300 mg | bedtime for 1 week, | capsule | | 14 | 4 | | capsuleIndications: | then increase to 2 | | | | | | Neuropathic pain | capsules at bedtime. | | | | | + + + +---------+ + + documented as of this encounter Plan of Treatment Not on filedocumented as of this encounter Procedures + +--------+ + + + | Procedure Name | Priori | Date/Time | Associated Diagnosis | Comments | | | ty | | | | + +--------+ + + + | MRI BRAIN W WO | Routin | 06/20/2014 | Neuropathic pain | Results for this | | CONTRAST | e | 8:32 AM | Hartley's palsy | procedure are in the | | | | PDT | | results section. | + +--------+ + + + documented in this encounter Results MRI Brain w wo [...] + | MISCELLANEOUS LAB | | | [phone] | + +---------+ + + | MISCELANIOUS LAB | | | [phone] | + +---------+ + + documented in this encounter Visit Diagnoses + + | Diagnosis | + + | Neuropathic pain Neuralgia, neuritis, and radiculitis, unspecified | + + | Hartley's palsy | + + documented in this encounter Administered Medications + +--------+ +--------+------+------+ | Medication Order | MAR | Action | Dose | Rate | Site | | | Action | Date | | | | + +--------+ +--------+------+------+ | gadobutrol (GADAVIST) injection | Given | 06/20/ | 10 mLs | | | | 10 mL 10 mL, Intravenous, ONCE | | 14 8:34 | | | | | PRN, Other, Starting Judith 06/20/14 | | AM PDT | | | | | at 0832, For 1 dose, MRI | | | | | | + +--------+ +--------+------+------+ +---+---+ | | | +---+---+ documented in this encounter"
--- OUTSIDE RECORDS SUMMARY | ~2019-09-03 | XMS | Encounter Summary ---
Demographics + + + | Address | [address] [facility] | | | [place] [address] | + + + | Home Phone [...] + + | Author | [facility] | | | and [place] | + + + | Organization | [facility] | | | and [place] | + + + | Address | Unknown | + + + | Phone | Unavailable | + + + Care Team Providers + +------+ + | Care Tanning Consultant Name | Role | Phone | + +------+ + | Grecia Miranda NP | PCP | | + +------+ + Encounter Details +--------+ + + + + | Date | Type | Department | Care Team | Description | +--------+ + + + + | 08/10/ | Hospital | [facility] | Conversion | | | 2017 | Encounter | C[facility] | Transaction, | | | | | CLINIC [address] | Provider Unknown | | | | | [place], [place] | [phone] | | | | | [address] | | | | | | [phone] | | | +--------+ + + + [...] + + + | Blood Pressure | 123/74 | 08/10/2017 1:31 PM | | | | | PST | | + + + + + | Pulse | 72 | 08/10/2017 1:31 PM | | | [...] + + + + | Weight | 72.4 kg (159 lb 9.8 | 08/10/2017 1:31 PM | | | | oz) | PST | | + + + + + | Height | 190.5 cm (6' 3") | 08/10/2017 1:31 PM | | | | | PST | | + + + + + | Body Mass Index | 19.95 | 08/10/2017 1:31 PM | | | [...] | | 0 | | | | Egtrmlh-Eblhnxq-Iscd | | | | | | | [...] mLs by mouth | | 0 | /30/20 | | | mL solution | 2 times daily. | | | 17 | | + + + +---------+ + + | omeprazole | Take 1 capsule by | | 0 | /30/20 | | | (PRILOSEC) 20 mg | [...]
--- OUTSIDE RECORDS SUMMARY | ~2019-09-03 | XMS | Encounter Summary ---
Demographics + + + | Address | [address] [facility] | | | [place] [address] | + + + | Home Phone | | + + + | Preferred Language | Unknown | + + + | Marital Status | Single | + + + | Denominational Affiliation | Unknown | + + + | Race | Unknown | + + + | Ethnic Group | Unknown | + + + Author + + + | Author | [facility] | | | and [place] | + + + | Organization | [facility] | | | and [place] | + + + | Address | Unknown | + + + | Phone | Unavailable | + + + Care Team Providers + +------+ + | Care Meat Loiner Name | Role | Phone | + +------+ + | Grecia Mrianda NP | PCP | | + +------+ + Encounter Details +--------+ + + + + | Date | Type | Department | Care Team | Description | +--------+ + + + + | 03/19/ | Orders Only | [facility] | Provider, | | | 2018 | | SYSTEM GENERIC OP | [address] | | | | | CONVERSION [address] | [address] | | | | | [address] [place], [place] | [place] [address] | | | | | [address] | | | | | | [phone] | | | +--------+ + + + [...]
--- OUTSIDE RECORDS SUMMARY | ~2019-09-03 | XMS | Encounter Summary ---
Demographics + + + | Address | [address] [facility] | | | [place] [address] | + + + | Home Phone | | + + + | Preferred Language | Unknown | + + + | Marital Status | Single | + + + | Evangelical Affiliation | Unknown | + + + [...] Team Providers + +------+ + | Care Registrar Museum Name | Role | Phone | + +------+ + | Grecia Miranda NP | PCP | | + +------+ + Encounter Details +--------+ + + + + | Date | Type | Department | Care Team | Description | +--------+ + + + + | 08/09/ | Orders Only | [facility] | Conversion | | | 2015 | | INFECTIOUS DISEASE | Transaction, | | | | | [address] [facility] | Provider Unknown | | | | | [place], [place] | [phone] | | | | | [address] | | | | | | [phone] | | | +--------+ + + + [...]
--- OUTSIDE RECORDS SUMMARY | ~2019-09-03 | XMS | Encounter Summary ---
Demographics + + + | Address | [address] [facility] | | | [place] [address] | + + + | Home Phone | | + + + | Preferred Language | Unknown | + + + | Marital Status | Single | + + + | Scientology Affiliation | Unknown | + + + [...] Team Providers + +------+ + | Care Law Firm Consultant Name | Role | Phone | + +------+ + | Grecia Miranda NP | PCP | | + +------+ + Encounter Details +--------+ + + + + | Date | Type | Department | Care Team | Description | +--------+ + + + + | 12/27/ | Orders Only | [facility] | Baljit Staples DO | | | 2013 | | INFECTIOUS DISEASE | [address] | | | | | [address] | [place] [address] | | | | | [place], [place] | [phone] | | | | | [address] | | | | | | [phone] | | | +--------+ + + + [...] 12/27/13 1504 Encounter Date: 12/27/2013 Status: Signed Trash Truck Driver: Baljit Staples DO (Physician) Subjective: Patient ID: [...] much better tolerated. The patient moved from [place] to [place] in 2011 and had several months. Where [...] ind igestion, heartburn, or nausea. He takes [place] for the pain and has also recently been star nestor on Prilosec. He states that he uses the Prilosec as needed for abdominal pain, but not every day. Medical record view: I have a letter of introduction from the patient's telehealth case manager. I have also received a re ferral from the patient's primary care provider which indicates that he is currently being t reated with Complera, Prilosec and Tylenol with hydrocodone. Note from primary care clinic indicates that the patient has not seen any provider for the past 8-9 months, but was previo usly treated by an infectious disease specialist in [place] by the name of Dr. Shin. Graciela mendez takes [place] for chronic abdominal pain. He moved to this region about 2 years ago from [facility] and was recently switched to Complera due to side effects that he was having from his previous medication. I have a note from Dr. Ruben Shin in [place] from April 2012 i n which case he was establishing care after recently moving from [place]. At that time, he requested a refill [...] 40 mg by mouth daily. - Discontinue: mucafzkgfb-xeylvesm-frbucdzia (COMPLERA) 200-25-300 MG per tablet; Take 1 ta blet by mouth daily. - HYDROcodone-acetaminophen (NORCO) 5-325 MG per tablet; Take 1 tablet by mouth every 6 (si x) hours as needed. - uccrtmdzyr-cxxroaxv-kihxlprbi (COMPLERA) 200-25-300 MG per tablet; Take 1 [...]
--- OUTSIDE RECORDS SUMMARY | ~2019-09-03 | XMS | Encounter Summary ---
Demographics + + + | Address | [address] [facility] | | | [place] [address] | + + + | Home Phone | | + + + | Preferred Language | Unknown | + + + | Marital Status | Single | + + + | Zoroastrian Affiliation | Unknown | + + + | Race | Unknown | + + + | Ethnic Group | Unknown | + + + Author + + + | Author | [facility] | | | and [place] | + + + | Organization | 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 | [place] | | | | | Procedures | address | [address] | | | | | MRI Brain | | Phone: | | | | | w wo | | [phone] | | | | | Contrast | | Fax: | | | | | | | [phone] | +--------+--------+ + + + + Reason [...] Neuropathic | Nahum Hoyt, | [address] | | | | | pain | MD 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[place], | | | | | 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 | [place] | | | | | Procedures | address | [address] | | | | | MRI Brain | | Phone: | | | | | w wo | | [phone] | | | | | Contrast | | Fax: | | | | | | | [phone] | +--------+--------+ + + + + Encounter Details +--------+ + + + + | Date | Type | Department | Care Team | Description | +--------+ + + + + | 10/30/ | Hospital | [facility] | Nahum Suero | Neuropathic pain; | | 2013 | Encounter | MED CTR MRI [address] MD Need updated | Hartley's palsy | | | | [place], | address | | | | | [place] [address] | | | | | | [phone] | | | +--------+ + + + [...] | | 0 | | | | Mzlobcv-Cfkbfcb-Fvgw | | | | | | | [...] + | MISCELLANEOUS LAB | | | [phone] | + +---------+ + + | MISCELANIOUS LAB | | | [phone] | + +---------+ + + documented in [...]
--- OUTSIDE RECORDS SUMMARY | ~2019-09-03 | XMS | Clinical Summary ---
Demographics + + + | Address | [address] [facility] | | | [place] [address] | + + + | Home Phone | | + + + | Preferred Language | Unknown | + + + | Marital Status | Single | + + + | Tenriism Affiliation | Unknown | + + + | Race | Unknown | + + + | Ethnic Group | Unknown | + + + Author + + + | Author | [facility] (Historical as of | | | 04-07-19) | + + + | Organization | [facility] [employer] (Historical as of | | | 04-07-19) [...] Team Providers + +------+ + | Care Vp Site Name | Role | Phone | + [...] +------+-------+ + | MEDICAID | [place] | [id number] | | | [address] | | | [place] | | | | [place] | | | [place] | | | | [address] | | | [employer] | | | | | + +--------+ [...] Self | [birth year] | Home: | [address] | | | al/Fam | | 1970 | [phone] | [address] [place] | | | ayde | | | [phone] | [phone] | + +--------+ +--------+ + + | LUCILLE GREENE | Person | Self | [birth year] | Home: | [facility] | | | al/Fam | | 1969 | +- | [address] [place] [address] | | | [place] | | | [phone] | [phone] | + +--------+ +--------+ + +
--- OUTSIDE RECORDS SUMMARY | ~2019-09-03 | XMS | Encounter Summary ---
Demographics + + + | Address | [address] [facility] | | | [place] [address] | + + + | Home Phone [...] Team Providers + +------+ + | Care Printmaker Name | Role | Phone | + +------+ + | Ruben Shin MD | PCP | | + +------+ + Reason for Referral Surgical (Routine) + + + + + + + | Status | Reason | Specialty | Diagnoses / | Referred By | Referred To | | | | | Procedures | Contact | Contact | + + + + + + + | Canceled | Specialty | Surgery / | Diagnoses | Muir, | Muir, | | | Services | General | Ventral | Escobar Reynolds MD | Escobar Reynolds MD | | | Required | Surgery | hernia | [address] | | | | | Procedures | POPLAR, ANMOL | POPLAR, ANMOL | | | | | VA IMPLANT | [address] [place] [address] [place] | | | | | MESH HERNIA | [place], [place] | [place] | | | | | REPAIR/DEBRI | [address] | [address] Phone: | | | | | SIMONE | Phone: | [phone] | | | | | CLOSURE | [phone] | Fax: | | | | | | Fax: | [phone] | | | | | | [phone] | | + + + + + + + Reason for Visit + + + | Reason | Comments | + + + | New Patient | small supraumbilical hernia | + + + Encounter Details +--------+---------+ + + + | Date | Type | Department | Care Team | Description | +--------+---------+ + + + | 07/26/ | Office | [facility] | Escobar Muir, | Ventral hernia | | 2011 | Visit | SURGERY [address] | [address], | (Primary Dx) | | | | [place], [place] | [address] [place], | | | | | [address] | [place] [address] | | | | | [phone] | [phone] | | | | | | | [...] + + + | Blood Pressure | 110/84 | 07/26/2012 11:05 AM | | | | | PST | | + + + + + | Pulse | 70 | 07/26/2012 11:05 AM | | | | | PST | | + + + + + | Temperature | 35.7 C (96.3 F) | 07/26/2012 11:05 AM | | | | | PST | | + + + + + | Respiratory Rate | 14 | 07/26/2012 11:05 AM | | | | | PST | | + + + + + | Oxygen Saturation | 100% | 07/26/2012 11:05 AM | | | | | PST | | + + + + + | Inhaled Oxygen | - | - | | | Concentration | | | | + + + + + | Weight | 77.2 kg (170 lb 1.6 | 07/26/2012 11:05 AM | | | | oz) | PST | | + + + + + | Height | 190.5 cm (6' 3") | 07/26/2012 11:05 AM | | | | | PST | | + + + + + | Body Mass Index | 21.26 | 07/26/2012 11:05 AM | | | | | PST | | + + + + + documented in this encounter Progress Notes Escobar Muir MD - 07/26/2012 11:02 AM PSTFormatting of this note might be different fr om the original. Subjective: He is a patient of Ruben Shin MD here today for evaluation of small supraumbilical hernia . HPI This patient is a nice 42 year of age male with 2 small ventral hernias i n the epigastrium there are symptomatic and enlarged over time. The patient denies constipa tion, difficulty with urination or chronic cough. He has relocated from [place] where he wa s being treated for HIV. He was having trouble swallowing the pills so his physician stoppe d the medication altogether for about one year. The patient has relocated to [place] and as established a primary care physician in Dr. Shin. He has been started on: Complera a tr iple therapy for HIV. Patient has had no complications associated with being HIV + since 10 04. Laboratory studies show his absolute neutrophil count is normal at 1.97, white blood ce ll count 4.1, quantitative HIV viral load is 2280 and his CD 4 count is 446 which is mildly depressed. 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 Past Medical History He has a past medical history of HIV INFECTION and Abdominal hernia. Past Surgical History He has no past surgical history on file. Family History: His family history includes Cancer in an other family member; Diabetes in his father, arias reynolds, and another family member; Hypertension in an other family member; and Stroke in his [facility]. Social History: He reports that he has been smoking. He does not have any smokeless tobacco history on dara e. He reports that he drinks about 1.2 ounces of alcohol per week. No Known Allergies Medications: Outpatient Encounter Prescriptions as of 07/26/2012 Medication Sig Dispense Refill rinlholsci-vgygdepq-cqcarbytx (COMPLERA) 200-25-300 mg Take 1 tablet by mouth Daily. Ta ke with a meal. Review of Systems Constitutional: Positive for appetite change and unexpected weight change. Weight loss HENT: Negative. Eyes: Negative. Respiratory: Negative. Cardiovascular: Negative. Gastrointestinal: Negative. Genitourinary: Negative. Musculoskeletal: Negative. Neurological: Negative. Hematological: Negative. Psychiatric/Behavioral: Depression Objective: Physical ExamBP 110/84 | Pulse 70 | Temp(Src) 35.7 C (96.3 F) (Oral) | Resp 14 | Ht 1.9 05 m (6' 3") | Wt 77.157 kg (170 lb 1.6 oz) | BMI 21.26 kg/m2 | SpO2 100% Well-developed well-nourished in no apparent distress HEENT her PERRLA and EOMI no scleral icterus Heart regular rate and rhythm no murmurs or gallops Lungs clear to auscultation anteriorly and posteriorly Abdomen soft nondistended nontender present bowel sounds, 2 small reducible bulges in the e pigastric midline are identified and consistent with ventral hernia. Extremities without edema Assessment: Ventral hernia repair with possible mesh placement was discussed with the patient at length to have risks that include but not limited to bleeding, infection, injury to bowel, recurre nt hernia 5-10% at 5 years and the usual risks of anesthesia. Plan: We will schedule the patient at the earliest available time. [place] precautions will be maintained as per the norm. Consent was signed documented in this enc ounter Plan of Treatment + + +--------+ + + | Name | Type | Priori | Associated Diagnoses | Order Schedule | | | | ty | | | + + +--------+ + + | Ambulatory referral | Outpatient | Routin | Ventral hernia | Ordered: 07/26/2012 | | to General Surgery | Referral | e | | | + + +--------+ + + documented as of this encounter Visit Diagnoses + + | Diagnosis | + + | Ventral hernia - Primary Ventral hernia, unspecified, without mention of obstruction | | or gangrene | + + documented in this encounter
--- OUTSIDE RECORDS SUMMARY | ~2019-09-03 | XMS | Encounter Summary ---
Demographics + + + | Address | [address] [facility] | | | [place] [address] | + + + | Home Phone [...] Team Providers + +------+ + | Care Airfield Operations Specialist Name | Role | Phone | + +------+ + | Grecia Miranda NP | PCP | | + +------+ + Reason for Referral Evaluate & Treat (Routine) +--------+ + + + + + | Status | Reason | Specialty | Diagnoses / | Referred By | Referred To | | | | | Procedures | Contact | Contact | +--------+ + + + + + | Closed | Specialty | Ophthalmology | Diagnoses | Pio, | Matt Swann | | | Services | | Neuropathic | Nahum Hoyt, | MD Mitzi | | | Required | | pain | Need | [address], | | | | | 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 | [address] [facility] | | | | | | address | [place], | | | | | | | [place] [address] | | | | | | | Phone: | | | | | | | [phone] | +--------+ + + + + + Reason for Visit + + + | Reason | Comments | + + + | Follow-up | left face and leg pain; impaired left eye sight | + + + Encounter Details +--------+---------+ + + + | Date | Type | Department | Care Team | Description | +--------+---------+ + + + | 07/29/ | Office | [facility] | Nahum Suero | Neuropathic pain | | 2013 | Visit | NEUROLOGY ALAINA Hoyt MD Need updated | (Primary Dx); Alexandrea | | | | [address] [facility], | address | palsy | | | | [address] [facility] [address] | | | | | | [place] [address] | | | | | | [phone] | | | +--------+---------+ + + + [...] + + + | Blood Pressure | 144/82 | 07/29/2014 10:39 AM | | | | | PST | | + + + + + | Pulse | 86 | 07/29/2014 10:39 AM | | | | | PST | | + + + + + | Temperature | - | - | | + + + + + | Respiratory Rate | 16 | 07/29/2014 10:39 AM | | | | | PST | | + + + + + | Oxygen Saturation | - | - | | + + + + + | Inhaled Oxygen | - | - | | | Concentration | | | | + + + + + | Weight | 74.8 kg (165 lb) | 07/29/2014 10:39 AM | | | | | PST | | + + + + + | Height | 190.5 cm (6' 3") | 07/29/2014 10:39 AM | | | | | PST | | + + + + + | Body Mass Index | 20.62 | 07/29/2014 10:39 AM | | | | | PST | | + + + + + documented in this encounter Patient Instructions Patient Instructions Nahum Suero MD - 07/29/2014 11:05 AM PSTFormatting of this n ote might be different from the original. 1) Referral to eye doctor 2) Start using Lubricant eye ointment like Systane. Look at [facility], [facility], [facility]. 3) try taking gabapentin earlier in the evening. 4) Return to neurology in 1 month Hartley s Palsy Hartley s palsy is a nerve disorder that usually happens suddenly and without warning. This condition occurs when a nerve that controls facial movement is damaged. Nerve damage can occ ur for many reasons. But most cases of Hartley s palsy are probably caused by a virus. Symptoms of Hartley s Palsy Mild weakness to total paralysis of one side of your face Drooping mouth, drooling on one side of mouth Trouble closing one eye Noises seeming louder than usual Change in your sense of taste When to go to the emergency department (ED) Hartley s palsy rarely requires emergency treatment. However, there are conditions, such as stroke, that may look like Hartley's Palsy and are medical emergencies. Therefore, you should s augustine emergent medical care if you notice facial weakness or drooping. Although Hartley s palsy can be alarming, it s rarely serious. Many people begin to improve in about 2 weeks, even without treatment. Treatment To treat Hartley s palsy, you may be given steroid medications. This helps reduce swelling o f the affected nerve. In some cases, your doctor may prescribe an antiviral medication. Your open eye may be covered with a patch to prevent it from drying out. You also may need to us e eyedrops and ointments for a time. Your doctor will discuss follow-up care with you, inclu ding the possible need for further treatment to help your facial muscles return to normal. To learn more about Hartley s palsy, contact: National [place] of Neurological Disorders and Stroke Division of the National Institutes of Health [phone] www.ninds.nih.gov/health_and_medical/disorders/bells_doc.htm 3459-[address] [employer]. [address] [place] [address]. All righ ts reserved. This information is not intended as a substitute for professional medical care. Always follow your healthcare professional's instructions. documented in this encounter Progress Notes Nahum Suero MD - 07/29/2014 10:39 AM PSTFormatting of this note might be differen t from the original. Nahum Suero MD [address] [place] [address], [address] [place] [address] Neurology Outpatient ProgressNote Patient ID: Mr. Greene is a 44 y.o. male with a pertinent history of HIV, following up in neurology [facility] for 7th nerve palsy. Mr. Greene was last seen 06/10/14. Interval History: Since last visit, Mr. Greene underwent an MRI of his brain showing abnormal enhancement of the left facial nerve consistent with HIV associated facial nerve palsy. No significant intr acranial abnormalities were seen. Mr. Greene has noticed improvements in his facial asymmet ry, and can now almost completely close his left eye. He has noticed increased tearing when it is windy outside, and when eating. His left eye continues to sting, and he feels his visi on is blurred first thing in the morning. Unfortunately, Mr. Greene has not pursued seeing an glazier stained glass. He occasionally puts lubricating drops in his eyes and was previously ta ping his left eye shut. Mr. Greene continues to have some post auricular pain as well as pa in that shoots along his jaw. He has been taking gabapentin at night, which helps with sleep and pain, but he feels somewhat groggy early the next morning. Mr. Greene denies new focal neurologic complaints. Past Medical History: Past Medical History Diagnosis Date HIV INFECTION Abdominal hernia Current Medications: Current Medications Ccmbnxx-Cykjgrd-Jbawfhsi-Tenof (STRIBILD PO) (Taking) Take by mouth. agvhsrpjof-zlcyxufs-paesdzwbf (COMPLERA) 200-25-300 mg Take 1 tablet by mouth Daily. Take with a meal. gabapentin (NEURONTIN) 300 mg capsule (Taking) Take 1 capsule at bedtime for 1 week, then increase to 2 capsules at bedtime. HYDROCORTISONE PO (Taking) Take by mouth. OMEPRAZOLE PO (Taking) Take by mouth. Allergies: No Known Allergies Social history and family history are otherwise unchanged. ROS: GENERALLY: No fever, + night sweats, no anemia, no fatigue, no recent profound weight di nges. EYES: No eye problems, + impaired sight, no use of corrective lenses, no eye injury, no do uble vision, no blindness. EARS, NOSE, AND THROAT: No changes in taste or smell, no hearing difficulty, + ringing in the ears, no ear drainage, + dizziness, no voice changes, no difficulty swallowing, no signi ficant snoring, no sleep apnea, no sinus problems, no major dental work. NEUROLOGICALLY: Please see the review of systems discussed above in the history of present illness. In addition, the patient has numbness/pain of arms, numbness/pain of legs, muscle aching, and neck injury. PSYCHIATRIC: + depression, no sleep disorders, no anxiety, no bipolar disorder, no psychot ic episodes. CARDIOVASCULAR: No heart attacks, no heart murmur, no heart fluttering, no chest pain, no ankle swelling. LUNG DISEASE: No shortness of breath, no cough, no tuberculosis, no bloody cough, no asth ma, no emphysema/COPD. GASTROINTESTINAL: No bowel disease, no nausea or vomiting, no rectal bleeding, no constipa tion, no stool incontinence, no liver disease, no gallbladder disease, + abdominal pain, no ulcers. KIDNEY DISEASE: No urinary frequency, no painful or difficult urination, no incontinence. ENDOCRINE: No diabetes, no thyroid disease, no osteopenia or osteoporosis, no breast drain age. SKIN: No breast lumps, no skin changes, no rashes, no itches. HEMATOLOGIC/LYMPHATIC: No enlarged lymph nodes, no easy or unusual bleeding, no personal h istory of cancer. RHEUMATOLOGIC: + joint arthritis, no rheumatoid arthritis. Examination: BP 144/82 | Pulse 86 | Resp 16 | Ht 1.905 m (6' 3") | Wt 74.844 kg (165 lb) | BMI 20.62 kg/ m2 Lincoln Sleepiness Scale: 8 General: well developed and well nourished HEENT: [...] cranial nerves II-XII are intact except for left peripheral 7th nerve palsy with decreased sensation over V2 and V3 on left. Motor: normal 5/5 strength in all tested muscle groups Sensation: normal light touch Coordination/Cerebellar: finger to nose normal Gait: normal Radiographic Review: IMPRESSION - Abnormal enhancement involving left facial nerve from distal intracanalicular to mastoid segments. 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 Another possibility would be herpes infection. Imaging was reviewed in detail during the visit. Imaging demonstrates enhancement of the le ft 7th nerve. No other intracranial abnormalities appreciated. Laboratory Review: None Assessment: Mr. Greene is a 44 y.o. male with a history of HIV, following up in neurology clinic for 7t h nerve palsy. MRI imaging is reassuring for cause (likely HIV related). He has ongoing eye complaints that are concerning for corneal irritation/damage due to incomplete eye closure. Plan: 1) Referral to Ophthalmology, Dr. Ashkan Parham for assessment of corneal damage, treatment . 2) Discussed using lubricating ointment such as Systane at night in addition to taping eye shut. 3) Patient will start taking gabapentin earlier in the afternoon when his pain is maximal. Will watch for sedation. 4) Return to neurology clinic in 1 month Electronically signed by: Nahum Suero MD, 07/29/2014 11:27 documented in this encounter Plan of Treatment + + +--------+ + + | Name | Type | Priori | Associated Diagnoses | Order Schedule | | | | ty | | | + + +--------+ + + | Ophthalmology, | Outpatient | Routin | Neuropathic pain | Ordered: 07/29/2014 | | External - AMB | Referral | e | Hartley's palsy | | | Referral | | | | | + + +--------+ + + documented as of this encounter Visit Diagnoses + + | Diagnosis | + + | Neuropathic pain - Primary Neuralgia, neuritis, and radiculitis, unspecified | + + | Hartley's palsy | + + documented in this encounter
--- OUTSIDE RECORDS SUMMARY | ~2019-09-03 | XMS | Encounter Summary ---
Demographics + + + | Address | [address] [facility] | | | [place] [address] | + + + | Home Phone | | + + + | Preferred Language | Unknown | + + + | Marital Status | Single | + + + | Mandaen Affiliation | Unknown | + + + | Race | Unknown | + + + | Ethnic Group | Unknown | + + + Author + + + | Author | [facility] | | | and [place] | + + + | Organization | [facility] | | | and [place] | + + + | Address | Unknown | + + + | Phone | Unavailable | + + + Care Team Providers + +------+ + | Care Roofer Metal Name | Role | Phone | + +------+ + | Grecia Miranda NP | PCP | | + +------+ + Encounter Details +--------+ + + + + | Date | Type | Department | Care Team | Description | +--------+ + + + + | 12/23/ | Orders Only | [facility] | Conversion | | | 2016 | | INFECTIOUS DISEASE | Transaction, | | | | | [address] [facility] | Provider Unknown | | | | | [place], [place] | [phone] | | | | | [address] | | | | | | [phone] | | | +--------+ + + + [...]
--- OUTSIDE RECORDS SUMMARY | ~2019-09-03 | XMS | Encounter Summary ---
Demographics + + + | Address | [address] [facility] | | | [place] [address] | + + + | Home Phone | | + + + | Preferred Language | Unknown | + + + | Marital Status | Single | + + + | Christianity Affiliation | Unknown | + + + [...] Team Providers + +------+ + | Care Ems Manager Name | Role | Phone | + +------+ + | Grecia Miranda NP | PCP | | + +------+ + Encounter Details +--------+ + + + + | Date | Type | Department | Care Team | Description | +--------+ + + + + | 06/08/ | Orders Only | [facility] | Conversion | | | 2016 | | INFECTIOUS DISEASE | Transaction, | | | | | [address] [facility] | Provider Unknown | | | | | [place], [place] | [phone] | | | | | [address] | | | | | | [phone] | | | +--------+ + + + [...]
--- OUTSIDE RECORDS SUMMARY | ~2019-09-03 | XMS | Encounter Summary ---
Demographics + + + | Address | [address] [facility] | | | [place] [address] | + + + | Home Phone | | + + + | Preferred Language | Unknown | + + + | Marital Status | Single | + + + | Hinduism Affiliation | Unknown | + + + | Race | Unknown | + + + | Ethnic Group | Unknown | + + + Author + + + | Author | [facility] | | | and [place] | + + + | Organization | [facility] | | | and [place] | + + + | Address | Unknown | + + + | Phone | Unavailable | + + + Care Team Providers + +------+ + | Care Director Product Name | Role | Phone | + +------+ + | Grecia Miranda NP | PCP | | + +------+ + Encounter Details +--------+ + + + + | Date | Type | Department | Care Team | Description | +--------+ + + + + | 09/01/ | Orders Only | [facility] | Conversion | | | 2015 | | INFECTIOUS DISEASE | Transaction, | | | | | [address] [facility] | Provider Unknown | | | | | [place], [place] | [phone] | | | | | [address] | | | | | | [phone] | | | +--------+ + + + [...]
--- OUTSIDE RECORDS SUMMARY | ~2019-09-03 | XMS | Encounter Summary ---
Demographics + + + | Address | [address] [facility] | | | [place] [address] | + + + | Home Phone [...] Team Providers + +------+ + | Care Lead Maintenance Technician Name | Role | Phone | + [...] POPLAR, ANMOL | | | | | AR IMPLANT | [address] [place] [place] | | | | | [address] | [place], [place] | [place] | | | | | REPAIR/DEBRI | [address] | [address] Phone: | | | | | [place] | Phone: | [phone] | | | | | CLOSURE | [phone] | Fax: | | | | | | Fax: | [phone] | | | | | | [phone] | | + + + + + + + Reason for Visit + + + | Reason | Comments | + + + | New Patient | small supraumbilical hernia | + + + Encounter Details +--------+---------+ + + + | Date | Type | Department | Care Team | Description | +--------+---------+ + + + | 07/26/ | Office | [facility] | Escobar Muir, | Ventral hernia | | 2011 | Visit | SURGERY [address] | [address], | (Primary Dx) | | | | [place], [place] | [address] [place], | | | | | [address] | [place] [address] | | | | | [phone] | [phone] | | | | | | | [...] or chronic cough. He has relocated from [place] where he wa s being treated for HIV. He was having trouble swallowing the pills so his physician stoppe d the medication altogether for about one year. The patient has relocated to [place] and as established a primary care physician [...] other family member; and Stroke in his [facility] er. Social History: He reports that he has been smoking. He does not have any smokeless tobacco history on dara e. He reports that he drinks about 1.2 ounces of alcohol per week. No Known Allergies Medications: Outpatient Encounter Prescriptions as of 07/26/2012 Medication Sig Dispense Refill ewjhhvwfde-wwrexvtq-lsuoipcui (COMPLERA) 200-25-300 mg Take 1 tablet by [...] the patient at the earliest available time. Bascom precautions will be maintained as per the [...]
--- OUTSIDE RECORDS SUMMARY | ~2019-09-03 | XMS | Encounter Summary ---
Demographics + + + | Address | [address] [facility] | | | [place] [address] | + + + | Home Phone | | + + + | Preferred Language | Unknown | + + + | Marital Status | Single | + + + | Anglican Affiliation | Unknown | + + + | Race | Unknown | + + + | Ethnic Group | Unknown | + + + Author + + + | Author | [facility] | | | and [place] | + + + | Organization | [facility] | | | and [place] | + + + | Address | Unknown | + + + | Phone | Unavailable | + + + Care Team Providers + +------+ + | Care Tugboat Captain Name | Role | Phone | + +------+ + | Ruben Shin MD | PCP | | + +------+ + Encounter Details +--------+ + + + + | Date | Type | Department | Care Team | Description | +--------+ + + + + | 07/25/ | Abstract | [facility] | Juan J Shin, | | | 2011 | | SURGERY [address] | [address] | | | | | [place], [place] | [place], [place] | | | | | [address] | [id number] | | | | | [phone] | | | +--------+ + + + [...]
--- OUTSIDE RECORDS SUMMARY | ~2019-09-03 | XMS | Encounter Summary ---
Demographics + + + | Address | [address] [facility] | | | [place] [address] | + + + | Home Phone | | + + + | Preferred Language | Unknown | + + + | Marital Status | Single | + + + | Druze Affiliation | Unknown | + + + [...] Team Providers + +------+ + | Care Wage And Salary Specialist Name | Role | Phone | + +------+ + | Grecia Miranda NP | PCP | | + +------+ + Encounter Details +--------+ + + + + | Date | Type | Department | Care Team | Description | +--------+ + + + + | 11/16/ | Orders Only | [facility] | Baljit Staples DO | | | 2015 | | [address] | [address] [facility] | | | | | [place], [place] | [place] [address] | | | | | [address] | [phone] | | | | | [phone] | | | +--------+ + + + [...] + | HIV RNA, | Routin | 11/17/2015 | | Results for this | | QUANTITATIVE, PCR | e | 11:00 AM | | procedure are in the | | | | PDT | | results section. | + +--------+ + + + documented in this encounter Results HIV RNA, quantitative, PCR (11/17/2015 11:00 AM PDT) + + + + + + | Component | Value | Ref Range | Performed | Pathologist | | | | | At | Signature | + + + + + + | HIV-1 VIRAL | 4.5 (A)Comment: Testing | | EXTERNAL | | | RESULT | performed at [facility], [address] | | LAB | | | (REF) | [facility] | | | | | | [place] [address] | | | | + + + + + + | HIV-1 VIRAL | [id number] (A)Comment: | | EXTERNAL | | | LOAD | Testing performed at | | LAB | | | RESULT | [facility], [address] | | | | | | [place] | | | | | | [address] | | | | + + + [...] CLINICALLY | | | | | | SIGNIFICANT.Testing | | | | | | performed at [facility], [address] | | | | | | [address] [place] | | | | | | [place] [address] | | | | + + + [...]
--- OUTSIDE RECORDS SUMMARY | ~2019-09-03 | XMS | Clinical Summary ---
Demographics + + + | Address | [address] [facility] | | | [place] [address] | + + + | Home Phone [...] Team Providers + +------+ + | Care Rn Field Name | Role | Phone | + [...] 0 | | | Activ | | Cnhievg-Roiigtr-Ankl | | | | | | e [...] | [employer] | [facility] | [id number] | 08/22/19 | [phone] | | Medica [...] | 1970 | [phone] | [place] [address] | | | ayde | | | 5 (Home) | | + +--------+ +--------+ + + Advance Directives + + + + + | Type | Date Recorded | Patient | Explanation | | | | Bead Cutter | | + + + + + | Power of | | | | | Sawmill Worker | | | | + + + + + | Advance | | | | | Directive | | | | + + + + +
--- OUTSIDE RECORDS SUMMARY | ~2019-09-03 | XMS | Encounter Summary ---
Demographics + + + | Address | [address] [facility] | | | [place] [address] | + + + | Home Phone | | + + + | Preferred Language | Unknown | + + + | Marital Status | Single | + + + | Jain Affiliation | Unknown | + + + | Race | Unknown | + + + | Ethnic Group | Unknown | + + + Author + + + | Author | [facility] | | | and [place] | + + + | Organization | [facility] | | | and [place] | + + + | Address | Unknown | + + + | Phone | Unavailable | + + + Care Team Providers + +------+ + | Care Ad Operations Coordinator Name | Role | Phone | + +------+ + | Grecia Miranda NP | PCP | | + +------+ + Encounter Details +--------+ + + + + | Date | Type | Department | Care Team | Description | +--------+ + + + + | 08/10/ | Hospital | [facility] | Conversion | | | 2017 | Encounter | [facility] | Transaction, | | | | | CLINIC [address] | Provider Unknown | | | | | [place], [place] | [phone] | | | | | [address] | | | | | | [phone] | | | +--------+ + + + [...] | | 0 | | | | Tonhlfs-Csgdahq-Seze | | | | | | | [...]
--- OUTSIDE RECORDS SUMMARY | ~2019-09-03 | XMS | Encounter Summary ---
Demographics + + + | Address | [address] [facility] | | | [place] [address] | + + + | Home Phone | | + + + | Preferred Language | Unknown | + + + | Marital Status | Single | + + + | Restoration Affiliation | Unknown | + + + | Race | Unknown | + + + | Ethnic Group | Unknown | + + + Author + + + | Author | [facility] | | | and [place] | + + + | Organization | [facility] | | | and [place] | + + + | Address | Unknown | + + + | Phone | Unavailable | + + + Care Team Providers + +------+ + | Care Investigations Manager Name | Role | Phone | [...] | | [address] | [address] | | | | | [place], [place] | [place] [address] | | | | | [address] | [phone] | | | | | [phone] | | | +--------+ + + + [...] | | | RESULT | performed at [facility], [address] | | LAB | | | (REF) | [facility] | | | | | | [place] [address] | | | | + + + + + + | HIV-1 VIRAL | [id number] (A)Comment: | | EXTERNAL | | | LOAD | Testing performed at | | LAB | | | RESULT | [facility], [address] | | | | | | [place] | | | | | | [address] | | | | + + + [...] | | | | | performed at [facility], [address] | | | | | | [address] [place] | | | | | | [place] [address] | | | | + + + [...]
--- OUTSIDE RECORDS SUMMARY | ~2019-09-03 | XMS | Encounter Summary ---
Demographics + + + | Address | [address] [facility] | | | [place] [address] | + + + | Home Phone | | + + + | Preferred Language | Unknown | + + + | Marital Status | Single | + + + | Caodaism Affiliation | Unknown | + + + | Race | Unknown | + + + | Ethnic Group | Unknown | + + + Author + + + | Author | [facility] | | | and [place] | + + + | Organization | [facility] | | | and [place] | + + + | Address | Unknown | + + + | Phone | Unavailable | + + + Care Team Providers + +------+ + | Care Wad Blanking Press Adjuster Name | Role | Phone | + [...] POPLAR, ANMOL | | | | | [address] IMPLANT | [address] | | | | | MESH [address]ERNIA | [place], [place] | [place] | | | | | REPAIR/DEBRI | [address] | [address] Phone: | | | | | SIMONE | Phone: | [phone] | | | | | CLOSURE | [phone] | Fax: | | | | | | Fax: | [phone] | | | | | | [phone] | | +--------+ + + + + + Encounter Details +--------+ + + + + | Date | Type | Department | Care Team | Description | +--------+ + + + + | 09/26/ | Orders Only | [facility] | Escobar Muir, | Ventral hernia | | 2012 | | SURGERY [address] | [address], | (Primary Dx) | | | | [place], [place] | [address] [place], | | | | | [address] | [place] [address] | | | | | [phone] | [phone] | | | | | | | [...]
--- OUTSIDE RECORDS SUMMARY | ~2019-09-03 | XMS | Encounter Summary ---
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 Therefore, you should s levelock emergent medical care if you notice facial [...] more about Hartley s palsy, contact: National Reserve of Neurological Disorders and Stroke Division of the National Institutes of Health [phone] www.ninds.nih.gov/health_and_medical/disorders/bells_doc.htm 3789-[address] [employer] [place] [address]. All righ ts reserved. This information is not intended as a substitute for professional medical care. Always follow your healthcare professional's instructions. documented in this encounter Progress Notes Nahum Suero MD - 07/29/2014 10:39 AM PSTFormatting of this note might be differen t from the original. Nahum Suero MD [address] [place] [address], [address] [place] [address] Neurology Outpatient ProgressNote Patient ID: Mr. Greene is a 44 y.o. 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 Mr. [...] Mr. Greene has not pursued seeing an bookkeeper assistant. He occasionally puts lubricating drops in his [...] INFECTION Abdominal hernia Current Medications: Current Medications Sneghtv-Etnutzu-Fgtbunrt-Tenof (STRIBILD PO) (Taking) Take by mouth. wepspmaquh-mrtztndn-gzgfdqxed (COMPLERA) 200-25-300 mg Take 1 tablet by [...] (165 lb) | BMI 20.62 kg/ m2 [place] Sleepiness Scale: 8 General: well developed and [...]
[~2019-09-03 11:54] MED LIST changes: +CRUTCH1 EACH; +NORCO 5-325 TA1 EACH PO
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
== END 2019-09-03 12:21 | disposition home or self-care (01) ==
LOC: ED 11:54
DX: M25.572 Pain in left ankle and joints of left foot (principal)

== ENCOUNTER 2022-09-09 08:02 | Emergency (ER) | payer OTHER ==
[~2022-09-09] VITALS: Ht 190.5 cm; Wt 75.8 kg
--- OUTSIDE RECORDS SUMMARY | 2022-09-09 08:06 | XMS ---
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 Care History Medical/Surgical 12/11/2020 [facility] Care Recommendation: - PLEASE REVIEW PDMP - EDGAR - USE EXTREME CAUTION IN GIVING NARCOTICS. - Avoid Discharge Narcotic prescriptions if at all possible. Physician discretion. E.D. VISIT COUNT (12 MO.) 1 [facility] Tejeda TOTAL 1 NOTE: Visits indicate total known visits. ED/UCC VISIT TRACKING (12 MO.) 09/09/2022 08:05 [facility] [place] TYPE: Emergency COMPLAINT: - NECK PAIN, R ARM/FINGERS TINGLING INPATIENT VISIT TRACKING (12 MO.) No inpatient visits to display in this time frame [email or web address]
[2022-09-09] MEDS ORDERED: DESCOVY 200-251 EACH PO (08:13)
[2022-09-09] MEDS ORDERED: AMLODIPINE BESY10 MG PO (08:13)
[2022-09-09] MEDS ORDERED: GABAPENTIN300 MG PO (08:13)
[2022-09-09] MEDS ORDERED: QUETIAPINE FUM200 MG PO (08:13)
[2022-09-09] MEDS ORDERED: TIVICAY50 MG PO (08:13)
[2022-09-09] MEDS ORDERED: HYDROXYZINE HCL10 MG PO (08:13)
[2022-09-09] MEDS ORDERED: HYDROCODON-ACE1 EA10 PO (08:45)
== END 2022-09-09 08:57 | disposition home or self-care (01) ==
LOC: ED 08:02
DX: M50.90 Cervical disc disorder, unspecified, unspecified cervical region (principal); F17.200 Nicotine dependence, unspecified, uncomplicated; Z79.899 Other long term (current) drug therapy; Z79.82 Long term (current) use of aspirin
CPT/HCPCS: 99283

== ENCOUNTER 2022-11-09 12:54 | Emergency (ER) | payer OTHER ==
[~2022-11-09] VITALS: Ht 190.5 cm; Wt 78.9 kg
[~2022-11-09 12:54] MED LIST changes: +AMLODIPINE BESY10 MG PO; +DESCOVY 200-251 EACH PO; +GABAPENTIN300 MG PO; +HYDROXYZINE HCL10 MG PO; +QUETIAPINE FUM200 MG PO; +TIVICAY50 MG PO
--- OUTSIDE RECORDS SUMMARY | 2022-11-09 12:58 | XMS ---
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 PHONE: [phone] Emre Swann 11/13/2018-[place] PHONE: Unknown REBECA ROLLINS Internal Medicine: Infectious Disease Current PHONE: Unknown LORA WEAVER [facility] 12/11/2020-[facility] PHONE: Unknown Edgar has no Care Guidelines for this patient. Care History Medical/Surgical 12/11/2020 [facility] Care Recommendation: - PLEASE REVIEW PDMP - EDGAR - USE EXTREME CAUTION IN GIVING NARCOTICS. - Avoid Discharge Narcotic prescriptions if at all possible. Physician discretion. E.D. VISIT COUNT (12 MO.) 2 [facility]. TOTAL 2 NOTE: Visits indicate total known visits. 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
== END 2022-11-10 11:02 | disposition home or self-care (01) ==
LOC: ED 12:54
DX: R45.851 Suicidal ideations (principal); F43.10 Post-traumatic stress disorder, unspecified; F17.200 Nicotine dependence, unspecified, uncomplicated; Z79.899 Other long term (current) drug therapy; Z20.822 Contact with and (suspected) exposure to COVID-19
CPT/HCPCS: 36415; 80053; 84443; 85025; 87502; 99284; C9803; G0480; U0003

== ENCOUNTER 2025-05-10 16:00 | Emergency (ER) | payer OTHER ==
[~2025-05-10] VITALS: Ht 190.5 cm; Wt 74.0 kg
[~2025-05-10 16:00] MED LIST changes: +COLACE100 MG PO; +MAGNESIUM CITR296 ML PO; +TRAZODONE HCL50 MG PO
[2025-05-10 18:06] VITALS: BP 125/86
== END 2025-05-10 18:09 | disposition left against medical advice (07) ==
LOC: ED 16:00
DX: S00.83XA Contusion of other part of head, initial encounter (principal); F17.200 Nicotine dependence, unspecified, uncomplicated; Y04.2XXA Assault by strike against or bumped into by another person, initial encounter; Z79.899 Other long term (current) drug therapy
CPT/HCPCS: 70450; 70486; 72125; 99284-25

== ENCOUNTER 2025-05-13 08:06 | Emergency (ER) | payer OTHER ==
[~2025-05-13] VITALS: Ht 190.5 cm; Wt 72.0 kg
[2025-05-13] MEDS ORDERED: HYDROCODON-ACE1 EAC8 PO (08:20)
[2025-05-13] MEDS ORDERED: BACLOFEN10 MG PO (08:20)
[2025-05-13] MEDS ORDERED: KETOROLAC TROMETHAMINE 60 MG/2 ML VIAL IM ONE (08:30)
[2025-05-13 09:31] VITALS: BP 153/98
== END 2025-05-13 09:27 | disposition home or self-care (01) ==
LOC: ED 08:06
DX: S43.402A Unspecified sprain of left shoulder joint, initial encounter (principal); F17.200 Nicotine dependence, unspecified, uncomplicated; Z21 Asymptomatic human immunodeficiency virus [HIV] infection status; Z79.899 Other long term (current) drug therapy; X58.XXXA Exposure to other specified factors, initial encounter
CPT/HCPCS: 73030; 96372; 99283; J1885